=== PATIENT | female | born 1975 | race Caucasian/White ===

== ENCOUNTER 2016-11-25 08:24 | Emergency (ER) | payer OTHER ==
[2016-11-25] MEDS ORDERED: KETOROLAC 30 MG/ML 1 ML VIAL IVP STA (08:33)
[2016-11-25] MEDS ORDERED: SODIUM CHLORIDE 0.9% 1,000 ML IV STA (08:33)
[2016-11-25] MEDS ORDERED: ONDANSETRON 4 MG/2 ML VIAL IVP STA (08:33)
[2016-11-25 08:39] VITALS: RESP 18
[2016-11-25 09:00] LABS: Appearance,Urine Clear (Clear); Bilirubin,Urine Negative (Negative); Glucose,Urine (UA) Negative (Negative); Ketones,Urine Negative (Negative); Leukocyte Esterase,Urine Negative (Negative); Nitrite,Urine Negative (Negative); Protein,Urine Negative (Negative); Specific Gravity,Urine 1.006 (1.001-1.035); UA Billing (MACRO vs. MICRO) CHEM; Urobilinogen,Urine <2.0 mg/dL (<2.0)
[2016-11-25] MEDS ORDERED: HYDROmorphone 1 MG/ML 1 ML SYRINGE IVP STA (09:02)
--- NOTE | 2016-11-25 09:02 | ED ---
General Adult HPI - General Chief complaint: Back Pain/Injury Stated complaint: poss kidney stone Time Seen by Provider: 11/25/16 08:32 Source: patient, RN notes reviewed Mode of arrival: ambulatory Limitations: no limitations - History of Present Illness Initial comments: 41-year-old female presents emergency Department chief complaint of right flank pain. Patient has a history kidney stones in recurrent issues. Patient tablets The past. Patient Denies Any Vomiting States She's Been Nauseated. Patient States That She Had Pain Started Approximately One Month Ago but Has Worsened over the Last Few Days. Patient States Her Urologist Is Dr. Bingham. Patient denies any chest pain or shortness of breath. Patient denies any dysuria hematuria. Patient has no vaginal bleeding or vaginal discharge. Patient states the pain is very consistent for her kidney stones. - Related Data Home Medications Medication Instructions Recorded Confirmed Lisinopril [Zestril] 10 mg PO HS 11/25/16 11/25/16 Sertraline HCl [Zoloft] 100 mg PO HS 11/25/16 11/25/16 Previous Rx's Medication Instructions Recorded Hydrocodone/Acetaminophen [[place] 1 tab PO Q6HR PRN #20 tab 11/25/16 5-325] Ondansetron Odt [Zofran Odt] 4 mg PO Q8HR PRN #10 tab 11/25/16 Allergies Allergy/AdvReac Type Severity Reaction Status Date / Time No Known Allergies Allergy Verified 11/25/16 08:40 Review of Systems ROS Statement: Those systems with pertinent positive or pertinent negative responses have been documented in the HPI. ROS Other: All systems not noted in ROS Statement are negative. Past Medical History Past Medical History: Hypertension Additional Past Medical History / Comment(s): kidney stones History of Any Multi-Drug Resistant Organisms: None Reported Past Surgical History: Section, Cholecystectomy Additional Past Surgical History / Comment(s): laser removal of kidney stones Past Psychological History: No Psychological Hx Reported Smoking Status: Former smoker Past Alcohol Use History: Occasional Past Drug Use History: None Reported General Exam General appearance: alert, in no apparent distress Neck exam: Present: normal inspection. Absent: tenderness, meningismus, lymphadenopathy Respiratory exam: Present: normal lung sounds bilaterally. Absent: respiratory distress, wheezes, rales, rhonchi, stridor Cardiovascular Exam: Present: regular rate, normal rhythm, normal heart sounds. Absent: systolic murmur, diastolic murmur, rubs, gallop, clicks GI/Abdominal exam: Present: soft, tenderness (Mild tenderness to the right flank region), normal bowel sounds. Absent: distended, guarding, rebound, rigid Back exam: Present: full ROM, CVA tenderness (R). Absent: CVA tenderness (L) Neurological exam: Present: alert Skin exam: Present: warm, dry, intact, normal color. Absent: rash Course Vital Signs 11/25/16 08:31 Temperature 98.5 F Pulse Rate 90 Respiratory 18 Rate Blood Pressure 135/74 O2 Sat by Pulse 97 Oximetry Medical Decision Making - Medical Decision Making 41-year-old female presented for right flank pain. Patient has no kidney stones. Patient will follow-up with her urologist. Patient be given additional pain medicine go home with return parameters were discussed. - Lab Data Result diagrams: 11/25/16 08:49 11/25/16 08:49 Lab Results 11/25/16 11/25/16 11/25/16 Range/Units 08:49 08:49 08:49 WBC 7.3 (3.8-10.6) k/uL RBC 4.93 (3.80-5.40) m/uL Hgb 13.9 (11.4-16.0) gm/dL Hct 42.5 (34.0-46.0) % MCV 86.2 (80.0-100.0) fL MCH 28.3 (25.0-35.0) pg MCHC 32.8 (31.0-37.0) g/dL RDW 13.3 (11.5-15.5) % Plt Count 333 (150-450) k/uL Neutrophils % 68 % Lymphocytes % 24 % Monocytes % 4 % Eosinophils % 2 % Basophils % 1 % Neutrophils # 5.0 (1.3-7.7) k/uL Lymphocytes # 1.8 (1.0-4.8) k/uL Monocytes # 0.3 (0-1.0) k/uL Eosinophils # 0.1 (0-0.7) k/uL Basophils # 0.1 (0-0.2) k/uL Sodium 142 (137-145) mmol/L Potassium 4.0 (3.5-5.1) mmol/L Chloride 107 (98-107) mmol/L Carbon Dioxide 25 (22-30) mmol/L Anion Gap 10 mmol/L BUN 14 (7-17) mg/dL Creatinine 0.76 (0.52-1.04) mg/dL Est GFR (MDRD) Af Amer >60 (>60 ml/min/1.73 sqM) Est GFR (MDRD) Non-Af >60 (>60 ml/min/1.73 sqM) Glucose 97 (74-99) mg/dL Calcium 9.3 (8.4-10.2) mg/dL Total Bilirubin 0.6 (0.2-1.3) mg/dL AST 18 (14-36) U/L ALT 26 (9-52) U/L Alkaline Phosphatase 78 (38-126) U/L Total Protein 7.7 (6.3-8.2) g/dL Albumin 4.3 (3.5-5.0) g/dL Amylase 74 (30-110) U/L Lipase 131 (23-300) U/L Urine Color Light Yellow Urine Appearance Clear (Clear) Urine pH 6.0 (5.0-8.0) Ur Specific [place] 1.006 (1.001-1.035) Urine Protein Negative (Negative) Urine Glucose (UA) Negative (Negative) Urine Ketones Negative (Negative) Urine Blood Negative (Negative) Urine Nitrite Negative (Negative) Urine Bilirubin Negative (Negative) Urine Urobilinogen <2.0 (<2.0) mg/dL Ur Leukocyte Esterase Negative (Negative) Urine HCG, Qual (Not Detectd) 11/25/16 Range/Units 08:49 WBC (3.8-10.6) k/uL RBC (3.80-5.40) m/uL Hgb (11.4-16.0) gm/dL Hct (34.0-46.0) % MCV (80.0-100.0) fL MCH (25.0-35.0) pg MCHC (31.0-37.0) g/dL RDW (11.5-15.5) % Plt Count (150-450) k/uL Neutrophils % % Lymphocytes % % Monocytes % % Eosinophils % % Basophils % % Neutrophils # (1.3-7.7) k/uL Lymphocytes # (1.0-4.8) k/uL Monocytes # (0-1.0) k/uL Eosinophils # (0-0.7) k/uL Basophils # (0-0.2) k/uL Sodium (137-145) mmol/L Potassium (3.5-5.1) mmol/L Chloride (98-107) mmol/L Carbon Dioxide (22-30) mmol/L Anion Gap mmol/L BUN (7-17) mg/dL Creatinine (0.52-1.04) mg/dL Est GFR (MDRD) Af Amer (>60 ml/min/1.73 sqM) Est GFR (MDRD) Non-Af (>60 ml/min/1.73 sqM) Glucose (74-99) mg/dL Calcium (8.4-10.2) mg/dL Total Bilirubin (0.2-1.3) mg/dL AST (14-36) U/L ALT (9-52) U/L Alkaline Phosphatase (38-126) U/L Total Protein (6.3-8.2) g/dL Albumin (3.5-5.0) g/dL Amylase (30-110) U/L Lipase (23-300) U/L Urine Color Urine Appearance (Clear) Urine pH (5.0-8.0) Ur Specific [place] (1.001-1.035) Urine Protein (Negative) Urine Glucose (UA) (Negative) Urine Ketones (Negative) Urine Blood (Negative) Urine Nitrite (Negative) Urine Bilirubin (Negative) Urine Urobilinogen (<2.0) mg/dL Ur Leukocyte Esterase (Negative) Urine HCG, Qual Not Detected (Not Detectd) Disposition Clinical Impression: Nephrolithiasis, Right flank pain Disposition: HOME SELF-CARE Condition: Stable Instructions: Kidney Stones (ED) Additional Instructions: Please return to the Emergency Department if symptoms worsen or any other concerns. Prescriptions: Hydrocodone/Acetaminophen [[place] 5-325] 1 tab PO Q6HR PRN #20 tab PRN Reason: Pain Ondansetron Odt [Zofran Odt] 4 mg PO Q8HR PRN #10 tab PRN Reason: Nausea Referrals: Telma Aparicio DO [Primary Care Provider] - 1-2 days Grupo Bingham MD [STAFF PHYSICIAN] - 1-2 days Time of Disposition: 09:48
[2016-11-25 09:05] LABS: Basophils # (A) 0.1 k/uL (0-0.2); Basophils % (A) 1 %; CH 27.7; CHCM 32.3; Eosinophils # (A) 0.1 k/uL (0-0.7); Eosinophils % (A) 2 %; HCT 42.5 % (34.0-46.0); HDW 2.43; HGB 13.9 gm/dL (11.4-16.0); Luc # (Auto) 0.14; Luc % (Auto) 2; Lymphocytes # (A) 1.8 k/uL (1.0-4.8); Lymphocytes % (A) 24 %; MCH 28.3 pg (25.0-35.0); MCHC 32.8 g/dL (31.0-37.0); MCV 86.2 fL (80.0-100.0); Mean Platelet Volume 6.3; Monocytes # (A) 0.3 k/uL (0-1.0); Monocytes % (A) 4 %; Neutrophils % (A) 68 %; RBC 4.93 m/uL (3.80-5.40); RDW 13.3 % (11.5-15.5); WBC 7.3 k/uL (3.8-10.6); WBC (Perox) 7.11
--- NOTE | 2016-11-25 09:07 | XR ---
EXAMINATION TYPE: XR KUB DATE OF EXAM: 11/25/2016 8:57 AM CLINICAL HISTORY: History of kidney stones with right-sided abdominal pain. TECHNIQUE: 2 upright KUB images of the abdomen are obtained. COMPARISON: CT abdomen and pelvis from 6 days ago. Abdominal x-ray from 4 days ago FINDINGS: Multiple small bilateral renal calculi are redemonstrated seen better on recent CT versus x -ray. There is overall nonobstructive bowel gas pattern. Cholecystectomy clips are redemonstrated. Le ft-sided pelvic phleboliths are again seen. Visualized lung bases are clear. No pneumoperitoneum is p resent. IMPRESSION: Known multiple small bilateral renal calculi seen better on CT versus x-ray.
[2016-11-25 09:15] LABS: ALT 26 U/L (9-52); AST 18 U/L (14-36); Alkaline Phosphatase 78 U/L (38-126); Amylase 74 U/L (30-110); Anion Gap 10 mmol/L; Blood Urea Nitrogen 14 mg/dL (7-17); Calcium 9.3 mg/dL (8.4-10.2); Carbon Dioxide 25 mmol/L (22-30); Chloride 107 mmol/L (98-107); Glucose 97 mg/dL (74-99); Non-African American GFR(MDRD) >60 (>60 ml/min/1.73 sqM); Sodium 142 mmol/L (137-145); Total Bilirubin 0.6 mg/dL (0.2-1.3); Total Protein 7.7 g/dL (6.3-8.2)
[2016-11-25 10:01] VITALS: BP 128/78; PULSE 89; TEMP 98.6
== END 2016-11-25 09:58 | disposition home or self-care (01) ==
LOC: EC 08:24
DX: N20.0 Calculus of kidney (principal); R11.0 Nausea; I10 Essential (primary) hypertension; Z87.891 Personal history of nicotine dependence; Z79.899 Other long term (current) drug therapy; Z90.49 Acquired absence of other specified parts of digestive tract; Z98.890 Other specified postprocedural states
CPT/HCPCS: 36415; 80053; 82150; 83690; 85025; 81003; 81025; 74000; 99284; 96374; 96375 ×2; J2405; J1885; J1170

== ENCOUNTER 2017-09-26 12:06 | Emergency (ER) | payer OTHER ==
[2017-09-26 12:15] VITALS: RESP 18
[2017-09-26] MEDS ORDERED: KETOROLAC 30 MG/ML 1 ML VIAL IVP STA (12:20)
[2017-09-26] MEDS ORDERED: SODIUM CHLORIDE 0.9% 1,000 ML IV STA (12:20)
[2017-09-26] MEDS ORDERED: MORPHINE SULFATE 4 MG/ML SYRINGE IV STA (12:20)
[2017-09-26] MEDS ORDERED: ONDANSETRON 4 MG/2 ML VIAL IVP STA (12:20)
[2017-09-26 12:46] LABS: Basophils # (A) 0.1 k/uL (0-0.2); Basophils % (A) 1 %; Eosinophils # (A) 0.2 k/uL (0-0.7); Eosinophils % (A) 2 %; HCT 43.7 % (34.0-46.0); HGB 13.5 gm/dL (11.4-16.0); Lymphocytes # (A) 2.7 k/uL (1.0-4.8); Lymphocytes % (A) 33 %; MCH 26.7 pg (25.0-35.0); MCV 86.1 fL (80.0-100.0); Mean Platelet Volume 6.5; Monocytes # (A) 0.5 k/uL (0-1.0); Monocytes % (A) 7 %; Neutrophils # (A) 4.5 k/uL (1.3-7.7); Neutrophils % (A) 56 %; Platelet Count 380 k/uL (150-450); RBC 5.08 m/uL (3.80-5.40); RDW 13.6 % (11.5-15.5); WBC 8.2 k/uL (3.8-10.6)
[2017-09-26 12:50] LABS: Appearance,Urine Cloudy (Clear); Bacteria,Urine Rare /hpf; Bilirubin,Urine Negative (Negative); Blood,Urine Large (Negative); Color,Urine Yellow; Glucose,Urine (UA) Negative (Negative); Ketones,Urine Negative (Negative); Leukocyte Esterase,Urine Negative (Negative); Mucus,Urine Moderate /hpf; Nitrite,Urine Negative (Negative); PH, Urine 5.5 (5.0-8.0); Protein,Urine 1+ (Negative); RBC,Urine >182 /hpf (0-5); Specific Gravity,Urine 1.023 (1.001-1.035); Squamous Epithelial Cell,Urine 4 /hpf (0-4); Urobilinogen,Urine <2.0 mg/dL (<2.0); WBC,Urine 6 /hpf (0-5)
--- NOTE | 2017-09-26 12:53 | ED ---
General Adult HPI - General Chief complaint: Abdominal Pain Stated complaint: KIDNEY STONE Time Seen by Provider: 09/26/17 12:16 Source: patient, RN notes reviewed Mode of arrival: ambulatory Limitations: no limitations - History of Present Illness Initial comments: Patient 42-year-old female significant past medical history for kidney stones, presents emergency room today with chief complaint of right-sided flank pain that began last night. States had increased pain proximal one hour ago. Does not that she seen some blood in the urine. He doesn't feeling nauseated. States his symptoms are consistent with kidney stones that she's had in the past. She denies any other complaints or symptoms at this time. States she has not taken anything for the symptoms at home. Patient denies any recent fever , chills, shortness of breath, chest pain, numbness or tingling, dysuria, constipation or diarrhea, headaches or visual changes, or any other complaints. - Related Data Home Medications Medication Instructions Recorded Confirmed Lisinopril [Zestril] 10 mg PO HS 11/25/16 09/26/17 Sertraline HCl [Zoloft] 100 mg PO HS 11/25/16 09/26/17 Naproxen Sodium [Aleve] 220 mg PO DAILY PRN 09/26/17 09/26/17 Previous Rx's Medication Instructions Recorded Hydrocodone/Acetaminophen [[place] 1 each PO Q6HR PRN #12 tab 09/26/17 5-325] Ondansetron Odt [Zofran ODT] 4 mg PO Q8HR PRN #20 tab 09/26/17 Tamsulosin [Flomax] 0.4 mg PO DAILY #10 cap 09/26/17 Allergies Allergy/AdvReac Type Severity Reaction Status Date / Time No Known Allergies Allergy Verified 09/26/17 12:38 Review of Systems ROS Statement: Those systems with pertinent positive or pertinent negative responses have been documented in the HPI. ROS Other: All systems not noted in ROS Statement are negative. Past Medical History Past Medical History: Hypertension Additional Past Medical History / Comment(s): kidney stones History of Any Multi-Drug Resistant Organisms: None Reported Past Surgical History: Section, Cholecystectomy Additional Past Surgical History / Comment(s): laser removal of kidney stones Past Psychological History: No Psychological Hx Reported Smoking Status: Former smoker Past Alcohol Use History: Occasional Past Drug Use History: None Reported General Exam - General Exam Comments Initial Comments: General: The patient is awake and alert, in no distress, and does not appear acutely ill. Eye: Pupils are equal, round and reactive to light, extra-ocular movements are intact. No nystagmus. There is normal conjunctiva bilaterally. No signs of icterus. Ears, nose, mouth and throat: There are moist mucous membranes and no oral lesions. Neck: The neck is supple, there is no tenderness or JVD. Cardiovascular: There is a regular rate and rhythm. No murmur, rub or gallop is appreciated. Respiratory: Lungs are clear to auscultation, respirations are non-labored, breath sounds are equal. No wheezes, stridor, rales, or rhonchi. Gastrointestinal: Mild tenderness to the right CVA. No rebound tenderness. No guarding. Musculoskeletal: Normal ROM, no tenderness. Strength 5/5. Sensation intact. Pulses equal bilaterally 2+. Neurological: A&O x 3. CN II-XII intact, There are no obvious motor or sensory deficits. Coordination appears grossly intact. Speech is normal. Skin: Skin is warm and dry and no rashes or lesions are noted. Psychiatric: Cooperative, appropriate mood & affect, normal judgment. Limitations: no limitations Course Vital Signs 09/26/17 09/26/17 12:13 13:13 Temperature 98.1 F 97.8 F Pulse Rate 83 81 Respiratory 18 18 Rate Blood Pressure 131/89 130/71 O2 Sat by Pulse 94 L 99 Oximetry Medical Decision Making - Medical Decision Making Patient reexamined at this time shows no signs of distress. She does not that the symptoms are consistent with kidney stones that she's had in the past. Her x-rays been reviewed unremarkable. Her labs been reviewed. Patient does have large amount of blood. No sign of infection. Patient does state this feels consistent with kidney stones. Options of a CT were discussed. At this time shows couple been discharged home. Will be given Flomax, pain medication and nausea medication go home with. She is advised follow-up urologist later in the week if symptoms continue. Advised return if any symptoms increase or worsen. She states understanding and is in agreement. - Lab Data Result diagrams: 09/26/17 12:37 09/26/17 12:37 Lab Results 02/24/18 02/24/18 02/24/18 Range/Units 12:37 12:37 12:37 WBC 8.2 (3.8-10.6) k/uL RBC 5.08 (3.80-5.40) m/uL Hgb 13.5 (11.4-16.0) gm/dL Hct 43.7 (34.0-46.0) % MCV 86.1 (80.0-100.0) fL MCH 26.7 (25.0-35.0) pg MCHC 31.0 (31.0-37.0) g/dL RDW 13.6 (11.5-15.5) % Plt Count 380 (150-450) k/uL Neutrophils % 56 % Lymphocytes % 33 % Monocytes % 7 % Eosinophils % 2 % Basophils % 1 % Neutrophils # 4.5 (1.3-7.7) k/uL Lymphocytes # 2.7 (1.0-4.8) k/uL Monocytes # 0.5 (0-1.0) k/uL Eosinophils # 0.2 (0-0.7) k/uL Basophils # 0.1 (0-0.2) k/uL Sodium 144 (137-145) mmol/L Potassium 4.2 (3.5-5.1) mmol/L Chloride 106 (98-107) mmol/L Carbon Dioxide 26 (22-30) mmol/L Anion Gap 12 mmol/L BUN 15 (7-17) mg/dL Creatinine 0.80 (0.52-1.04) mg/dL Est GFR (MDRD) Af Amer >60 (>60 ml/min/1.73 sqM) Est GFR (MDRD) Non-Af >60 (>60 ml/min/1.73 sqM) Glucose 96 (74-99) mg/dL Calcium 9.6 (8.4-10.2) mg/dL Total Bilirubin 0.4 (0.2-1.3) mg/dL AST 18 (14-36) U/L ALT 27 (9-52) U/L Alkaline Phosphatase 84 (38-126) U/L Total Protein 7.4 (6.3-8.2) g/dL Albumin 4.2 (3.5-5.0) g/dL Urine Color Urine Appearance (Clear) Urine pH (5.0-8.0) Ur Specific [place] (1.001-1.035) Urine Protein (Negative) Urine Glucose (UA) (Negative) Urine Ketones (Negative) Urine Blood (Negative) Urine Nitrite (Negative) Urine Bilirubin (Negative) Urine Urobilinogen (<2.0) mg/dL Ur Leukocyte Esterase (Negative) Urine RBC (0-5) /hpf Urine WBC (0-5) /hpf Ur Squamous Epith Cells (0-4) /hpf Urine Bacteria (None) /hpf Urine Mucus (None) /hpf Urine HCG, Qual Not Detected (Not Detectd) 09/26/17 Range/Units 12:37 WBC (3.8-10.6) k/uL RBC (3.80-5.40) m/uL Hgb (11.4-16.0) gm/dL Hct (34.0-46.0) % MCV (80.0-100.0) fL MCH (25.0-35.0) pg MCHC (31.0-37.0) g/dL RDW (11.5-15.5) % Plt Count (150-450) k/uL Neutrophils % % Lymphocytes % % Monocytes % % Eosinophils % % Basophils % % Neutrophils # (1.3-7.7) k/uL Lymphocytes # (1.0-4.8) k/uL Monocytes # (0-1.0) k/uL Eosinophils # (0-0.7) k/uL Basophils # (0-0.2) k/uL Sodium (137-145) mmol/L Potassium (3.5-5.1) mmol/L Chloride (98-107) mmol/L Carbon Dioxide (22-30) mmol/L Anion Gap mmol/L BUN (7-17) mg/dL Creatinine (0.52-1.04) mg/dL Est GFR (MDRD) Af Amer (>60 ml/min/1.73 sqM) Est GFR (MDRD) Non-Af (>60 ml/min/1.73 sqM) Glucose (74-99) mg/dL Calcium (8.4-10.2) mg/dL Total Bilirubin (0.2-1.3) mg/dL AST (14-36) U/L ALT (9-52) U/L Alkaline Phosphatase (38-126) U/L Total Protein (6.3-8.2) g/dL Albumin (3.5-5.0) g/dL Urine Color Yellow Urine Appearance Cloudy H (Clear) Urine pH 5.5 (5.0-8.0) Ur Specific [place] 1.023 (1.001-1.035) Urine Protein 1+ H (Negative) Urine Glucose (UA) Negative (Negative) Urine Ketones Negative (Negative) Urine Blood Large H (Negative) Urine Nitrite Negative (Negative) Urine Bilirubin Negative (Negative) Urine Urobilinogen <2.0 (<2.0) mg/dL Ur Leukocyte Esterase Negative (Negative) Urine RBC >182 H (0-5) /hpf Urine WBC 6 H (0-5) /hpf Ur Squamous Epith Cells 4 (0-4) /hpf Urine Bacteria Rare H (None) /hpf Urine Mucus Moderate H (None) /hpf Urine HCG, Qual (Not Detectd) Disposition Clinical Impression: Kidney stone Disposition: HOME SELF-CARE Condition: Stable Instructions: Kidney Stones (ED) Additional Instructions: Please use medication as discussed. Please follow-up with urologist/family doctor in the next 2 days of symptoms have not improved. Please return to emergency room if the symptoms increase or worsen or for any other concerns. Prescriptions: Hydrocodone/Acetaminophen [[place] 5-325] 1 each PO Q6HR PRN #12 tab PRN Reason: Pain Ondansetron Odt [Zofran ODT] 4 mg PO Q8HR PRN #20 tab PRN Reason: Nausea Tamsulosin [Flomax] 0.4 mg PO DAILY #10 cap Referrals: Telma Aparicio DO [Primary Care Provider] - 1-2 days Time of Disposition: 13:33
[2017-09-26 12:57] LABS: ALT 27 U/L (9-52); AST 18 U/L (14-36); Albumin 4.2 g/dL (3.5-5.0); Alkaline Phosphatase 84 U/L (38-126); Anion Gap 12 mmol/L; Blood Urea Nitrogen 15 mg/dL (7-17); Calcium 9.6 mg/dL (8.4-10.2); Carbon Dioxide 26 mmol/L (22-30); Chloride 106 mmol/L (98-107); Glucose 96 mg/dL (74-99); Potassium 4.2 mmol/L (3.5-5.1); Sodium 144 mmol/L (137-145); Total Bilirubin 0.4 mg/dL (0.2-1.3); Total Protein 7.4 g/dL (6.3-8.2)
[2017-09-26] MEDS ORDERED: HYDROmorphone 0.5 MG/0.5 ML SYRINGE IVP STA (13:20)
--- NOTE | 2017-09-26 13:22 | XR ---
EXAMINATION TYPE: XR KUB , 2 VIEWS DATE OF EXAM ORDERED: 09/26/2017 HISTORY: pain. COMPARISON: Previous study dated 11/25/2016. FINDINGS: The lung bases are clear. There is been a previous cholecystectomy. The abdominal gas pattern is normal. There is no evidence of obstruction or free air. There is a 1.2 cm calculus overlying the region of the left renal pelvis. No other definite abnormal calcifications are seen. IMPRESSION: LEFT-SIDED NEPHROLITHIASIS.
[2017-09-26 14:01] VITALS: BP 142/73; PULSE 83; TEMP 97.5
== END 2017-09-26 14:01 | disposition home or self-care (01) ==
LOC: EC 12:06
DX: N20.0 Calculus of kidney (principal); I10 Essential (primary) hypertension; Z90.49 Acquired absence of other specified parts of digestive tract; Z87.891 Personal history of nicotine dependence; Z79.899 Other long term (current) drug therapy
CPT/HCPCS: 36415; 80053; 85025; 81001; 81025; 87086; 74018; 99284; 96374; 96375 ×3; 96361; J2270; J2405; J1885; J1170

== ENCOUNTER 2017-12-24 14:53 | Emergency (ER) | payer BC, OTHER ==
[2017-12-24 15:01] VITALS: RESP 18
[2017-12-24] MEDS ORDERED: KETOROLAC 30 MG/ML 1 ML VIAL IVP STA (15:02)
[2017-12-24] MEDS ORDERED: SODIUM CHLORIDE 0.9% 1,000 ML IV STA (15:02)
[2017-12-24] MEDS ORDERED: ONDANSETRON 4 MG/2 ML VIAL IVP STA (15:02)
--- NOTE | 2017-12-24 15:30 | ED ---
Abdominal Pain HPI - General Chief Complaint: Abdominal Pain Stated Complaint: Kidney stone Time Seen by Provider: 12/24/17 15:02 Source: patient, RN notes reviewed Mode of arrival: ambulatory Limitations: no limitations - History of Present Illness Initial Comments: 42-year-old female presents emergency Department chief complaint of right flank pain. She has a history of kidney stones. She states pain started hour to ago she states it feels exactly like her prior kidney stones. She missed some nausea no vomiting no diarrhea no constipation. states that the pain wraps around from her right flank to right lower abdomen. Patient denies any fever, chills no dysuria no noted hematuria. - Related Data Home Medications Medication Instructions Recorded Confirmed Sertraline HCl [Zoloft] 100 mg PO DAILY 11/25/16 12/24/17 Lisinopril [Zestril] 5 mg PO DAILY 12/24/17 12/24/17 Previous Rx's Medication Instructions Recorded Hydrocodone/Acetaminophen [[place] 1 tab PO Q6HR PRN #12 tab 12/24/17 5-325] Ibuprofen [Motrin] 600 mg PO Q8HR PRN #30 tab 12/24/17 Ondansetron Odt [Zofran Odt] 4 mg PO Q8HR PRN #10 tab 12/24/17 Tamsulosin [Flomax] 0.4 mg PO DAILY #7 cap 12/24/17 Allergies Allergy/AdvReac Type Severity Reaction Status Date / Time No Known Allergies Allergy Verified 12/24/17 15:08 Review of Systems ROS Statement: Those systems with pertinent positive or pertinent negative responses have been documented in the HPI. ROS Other: All systems not noted in ROS Statement are negative. Past Medical History Past Medical History: Hypertension Additional Past Medical History / Comment(s): kidney stones History of Any Multi-Drug Resistant Organisms: None Reported Past Surgical History: Section, Cholecystectomy Additional Past Surgical History / Comment(s): laser removal of kidney stones Past Psychological History: No Psychological Hx Reported Smoking Status: Former smoker Past Alcohol Use History: Occasional Past Drug Use History: None Reported General Exam Limitations: no limitations General appearance: alert, in no apparent distress Head exam: Present: atraumatic, normocephalic, normal inspection Respiratory exam: Present: normal lung sounds bilaterally. Absent: respiratory distress, wheezes, rales, rhonchi, stridor Cardiovascular Exam: Present: regular rate, normal rhythm, normal heart sounds. Absent: systolic murmur, diastolic murmur, rubs, gallop, clicks GI/Abdominal exam: Present: soft, tenderness (Tenderness to the right flank), normal bowel sounds. Absent: distended, guarding, rebound, rigid Back exam: Present: full ROM. Absent: tenderness, CVA tenderness (R), CVA tenderness (L) Neurological exam: Present: alert, oriented X3, CN II-XII intact Skin exam: Present: warm, dry, intact, normal color. Absent: rash Course Vital Signs 12/24/17 15:00 Temperature 98.9 F Pulse Rate 96 Respiratory 18 Rate Blood Pressure 179/86 O2 Sat by Pulse 98 Oximetry - Reevaluation(s) Reevaluation #1: 12/24/17 16:46 Patient was updated on results and reexamined. Patient states she feels much improved after IV medications. Medical Decision Making - Medical Decision Making 42-year-old female to emergency dept for right flank pain. She has a history kidney stones and symptoms are consistent with kidney stone. She does have notable hematuria and otherwise normal lab work. Patient we discharged with pain medication, antiemetics. Return parameters were discussed. - Lab Data Result diagrams: 12/24/17 16:10 12/24/17 16:10 Lab Results 12/24/17 12/24/17 12/24/17 Range/Units 16:10 16:10 16:10 WBC 9.2 (3.8-10.6) k/uL RBC 5.00 (3.80-5.40) m/uL Hgb 13.4 (11.4-16.0) gm/dL Hct 41.0 (34.0-46.0) % MCV 82.0 (80.0-100.0) fL MCH 26.8 (25.0-35.0) pg MCHC 32.6 (31.0-37.0) g/dL RDW 13.5 (11.5-15.5) % Plt Count 373 (150-450) k/uL Neutrophils % 64 % Lymphocytes % 24 % Monocytes % 7 % Eosinophils % 2 % Basophils % 1 % Neutrophils # 6.0 (1.3-7.7) k/uL Lymphocytes # 2.2 (1.0-4.8) k/uL Monocytes # 0.7 (0-1.0) k/uL Eosinophils # 0.2 (0-0.7) k/uL Basophils # 0.1 (0-0.2) k/uL Sodium 145 (137-145) mmol/L Potassium 3.8 (3.5-5.1) mmol/L Chloride 105 (98-107) mmol/L Carbon Dioxide 25 (22-30) mmol/L Anion Gap 15 mmol/L BUN 14 (7-17) mg/dL Creatinine 0.70 (0.52-1.04) mg/dL Est GFR (CKD-EPI)AfAm >90 (>60 ml/min/1.73 sqM) Est GFR (CKD-EPI)NonAf >90 (>60 ml/min/1.73 sqM) Glucose 120 H (74-99) mg/dL Calcium 9.5 (8.4-10.2) mg/dL Total Bilirubin 0.2 (0.2-1.3) mg/dL AST 18 (14-36) U/L ALT 29 (9-52) U/L Alkaline Phosphatase 86 (38-126) U/L Total Protein 7.0 (6.3-8.2) g/dL Albumin 4.1 (3.5-5.0) g/dL Amylase 67 (30-110) U/L Lipase 215 (23-300) U/L Urine Color Yellow Urine Appearance Clear (Clear) Urine pH 6.0 (5.0-8.0) Ur Specific [place] 1.019 (1.001-1.035) Urine Protein Negative (Negative) Urine Glucose (UA) Negative (Negative) Urine Ketones Negative (Negative) Urine Blood Trace H (Negative) Urine Nitrite Negative (Negative) Urine Bilirubin Negative (Negative) Urine Urobilinogen <2.0 (<2.0) mg/dL Ur Leukocyte Esterase Negative (Negative) Urine RBC 9 H (0-5) /hpf Urine WBC 3 (0-5) /hpf Ur Squamous Epith Cells 2 (0-4) /hpf Urine Bacteria Rare H (None) /hpf Urine Mucus Rare H (None) /hpf Disposition Clinical Impression: Nephrolithiasis, Right flank pain Disposition: HOME SELF-CARE Condition: Stable Instructions: Kidney Stones (ED) Additional Instructions: Please return to the Emergency Department if symptoms worsen or any other concerns. Prescriptions: Hydrocodone/Acetaminophen [[place] 5-325] 1 tab PO Q6HR PRN #12 tab PRN Reason: Pain Ibuprofen [Motrin] 600 mg PO Q8HR PRN #30 tab PRN Reason: Pain Ondansetron Odt [Zofran Odt] 4 mg PO Q8HR PRN #10 tab PRN Reason: Nausea Tamsulosin [Flomax] 0.4 mg PO DAILY #7 cap Is patient prescribed a controlled substance at d/c from ED?: Yes When asked, does pt state using other controlled substances?: No If prescribed controlled substance>3 days was MAPS reviewed?: Prescribed <3 Days If opioid is for acute pain is fill amount 7 days or less?: Yes Referrals: Telma Aparicio DO [Primary Care Provider] - 1-2 days Time of Disposition: 16:48
[2017-12-24] MEDS: MORPHINE SULFATE 4 MG/ML SYRINGE IV STA ×2 (16:18→16:59)
[2017-12-24 16:26] LABS: Appearance,Urine Clear (Clear); Bacteria,Urine Rare /hpf; Basophils # (A) 0.1 k/uL (0-0.2); Basophils % (A) 1 %; Bilirubin,Urine Negative (Negative); Blood,Urine Trace (Negative); Color,Urine Yellow; Eosinophils # (A) 0.2 k/uL (0-0.7); Eosinophils % (A) 2 %; Glucose,Urine (UA) Negative (Negative); HGB 13.4 gm/dL (11.4-16.0); Ketones,Urine Negative (Negative); Leukocyte Esterase,Urine Negative (Negative); Lymphocytes # (A) 2.2 k/uL (1.0-4.8); Lymphocytes % (A) 24 %; MCH 26.8 pg (25.0-35.0); MCHC 32.6 g/dL (31.0-37.0); Mean Platelet Volume 6.7; Monocytes # (A) 0.7 k/uL (0-1.0); Monocytes % (A) 7 %; Mucus,Urine Rare /hpf; Neutrophils % (A) 64 %; Nitrite,Urine Negative (Negative); Platelet Count 373 k/uL (150-450); Protein,Urine Negative (Negative); RBC,Urine 9 /hpf (0-5); RDW 13.5 % (11.5-15.5); Specific Gravity,Urine 1.019 (1.001-1.035); Squamous Epithelial Cell,Urine 2 /hpf (0-4); Urobilinogen,Urine <2.0 mg/dL (<2.0); WBC 9.2 k/uL (3.8-10.6); WBC,Urine 3 /hpf (0-5)
[2017-12-24 16:36] LABS: ALT 29 U/L (9-52); AST 18 U/L (14-36); Albumin 4.1 g/dL (3.5-5.0); Alkaline Phosphatase 86 U/L (38-126); Amylase 67 U/L (30-110); Anion Gap 15 mmol/L; Blood Urea Nitrogen 14 mg/dL (7-17); Calcium 9.5 mg/dL (8.4-10.2); Carbon Dioxide 25 mmol/L (22-30); Chloride 105 mmol/L (98-107); Glucose 120 mg/dL (74-99); Lipase 215 U/L (23-300); Potassium 3.8 mmol/L (3.5-5.1); Sodium 145 mmol/L (137-145); Total Bilirubin 0.2 mg/dL (0.2-1.3)
--- NOTE | 2017-12-24 16:46 | XR ---
EXAMINATION TYPE: XR KUB DATE OF EXAM: 12/24/2017 COMPARISON: 09/26/2017 HISTORY: Right flank pain TECHNIQUE: 2 views FINDINGS: Bowel gas pattern is normal. There is no sign of intestinal obstruction or pneumoperitoneum . Fecal pattern is normal. There are clips from cholecystectomy. There is a 1 cm calcification over t he left kidney. There is a 5 mm calcification over the pelvis on the right side that could be a dista l right ureteral stone. This is a change compared to old exam. There are small calcifications over th e right kidney. IMPRESSION: Possible distal right ureteral calculus.
[2017-12-24 17:04] VITALS: BP 157/70; PULSE 87; TEMP 97.4
== END 2017-12-24 17:04 | disposition home or self-care (01) ==
LOC: EC 14:53
DX: N20.0 Calculus of kidney (principal); I10 Essential (primary) hypertension; Z87.442 Personal history of urinary calculi; Z87.891 Personal history of nicotine dependence; Z79.899 Other long term (current) drug therapy; Z90.49 Acquired absence of other specified parts of digestive tract
CPT/HCPCS: 36415; 80053; 82150; 83690; 85025; 81001; 74018; 99284; 96374; 96375 ×2; J2270; J2405; J1885

== ENCOUNTER 2018-07-16 13:44 | Emergency (ER) | payer BC ==
[2018-07-16] MEDS ORDERED: ONDANSETRON 4 MG/2 ML VIAL IVP STA (14:42)
[2018-07-16] MEDS ORDERED: SODIUM CHLORIDE 0.9% 1,000 ML IV STA (14:42)
[2018-07-16] MEDS ORDERED: MORPHINE SULFATE 4 MG/ML SYRINGE IV STA ×2 (14:42→16:20)
[2018-07-16] MEDS ORDERED: KETOROLAC 30 MG/ML 1 ML VIAL IVP STA (14:43)
--- NOTE | 2018-07-16 14:44 | ED ---
General Adult HPI - General Chief complaint: Abdominal Pain Stated complaint: Kidney stones Time Seen by Provider: 07/16/18 14:29 Source: patient, RN notes reviewed Mode of arrival: ambulatory Limitations: no limitations - History of Present Illness Initial comments: Patient 42-year-old female significant past medical history for kidney stones, presenting to the emergency room today with a chief complaint of right-sided flank pain. She states that she has had some nausea no vomiting. Does admit to pain in the right flank rate around to the front. States consistent with kidney stone that she's had in the past. States pain started last night. Denies any other complaints. Patient denies any recent fever, chills, shortness of breath, chest pain, vomiting, numbness or tingling, dysuria or hematuria, headaches or visual changes, or any other complaints. - Related Data Home Medications Medication Instructions Recorded Confirmed Sertraline HCl [Zoloft] 100 mg PO HS 11/25/16 07/16/18 Losartan Potassium 50 mg PO HS 07/16/18 07/16/18 Previous Rx's Medication Instructions Recorded Hydrocodone/Acetaminophen [[place] 1 each PO Q6HR PRN #12 tab 07/16/18 5-325] Ibuprofen [Motrin] 600 mg PO Q6HR PRN #30 day 07/16/18 Tamsulosin [Flomax] 0.4 mg PO DAILY #10 cap 07/16/18 Allergies Allergy/AdvReac Type Severity Reaction Status Date / Time No Known Allergies Allergy Verified 07/16/18 14:39 Review of Systems ROS Statement: Those systems with pertinent positive or pertinent negative responses have been documented in the HPI. ROS Other: All systems not noted in ROS Statement are negative. Past Medical History Past Medical History: Hypertension Additional Past Medical History / Comment(s): kidney stones History of Any Multi-Drug Resistant Organisms: None Reported Past Surgical History: Section, Cholecystectomy Additional Past Surgical History / Comment(s): laser removal of kidney stones Past Psychological History: No Psychological Hx Reported Smoking Status: Former smoker Past Alcohol Use History: Occasional Past Drug Use History: None Reported General Exam - General Exam Comments Initial Comments: General: The patient is awake and alert, in no distress, and does not appear acutely ill. Eye: There is normal conjunctiva bilaterally. No signs of icterus. Ears, nose, mouth and throat: There are moist mucous membranes and no oral lesions. Neck: The neck is supple, there is no tenderness or JVD. Cardiovascular: There is a regular rate and rhythm. No murmur, rub or gallop is appreciated. Respiratory: Lungs are clear to auscultation, respirations are non-labored, breath sounds are equal. No wheezes, stridor, rales, or rhonchi. Gastrointestinal: Soft, non-distended, non-tender abdomen without masses or organomegaly noted. There is no rebound or guarding present. No CVA tenderness. Bowel sounds are unremarkable. Musculoskeletal: Normal ROM, no tenderness. Strength 5/5. Sensation intact. Pulses equal bilaterally 2+. Neurological: A&O x 3. CN II-XII intact, There are no obvious motor or sensory deficits. Coordination appears grossly intact. Speech is normal. Skin: Skin is warm and dry and no rashes or lesions are noted. Psychiatric: Cooperative, appropriate mood & affect, normal judgment. Limitations: no limitations Course Vital Signs 07/16/18 13:57 Temperature 98.4 F Pulse Rate 90 Respiratory 18 Rate Blood Pressure 143/88 O2 Sat by Pulse 96 Oximetry Medical Decision Making - Medical Decision Making Patient's labs reviewed. Urinalysis reviewed. Patient resting comfortably. Does admit to improvement after pain medication. She states the symptoms are consistent with kidney stones that she's had in the past. Was discussed about a CT. She has declined. She states she notes that it's a kidney stone. Patient will be treated with pain medication. She'll be given ibuprofen along with [place]. An opiate start talking form has been filled out. Patient also be started on Flomax and she is advised follow-up with her urologist Dr. Bingham. Advised return if symptoms increase or worsen or for any other concerns. - Lab Data Result diagrams: 07/16/18 14:51 07/16/18 14:51 Lab Results 07/16/18 07/16/18 07/16/18 Range/Units 14:51 14:51 14:51 WBC 10.7 H (3.8-10.6) k/uL RBC 5.25 (3.80-5.40) m/uL Hgb 14.4 (11.4-16.0) gm/dL Hct 44.2 (34.0-46.0) % MCV 84.2 (80.0-100.0) fL MCH 27.5 (25.0-35.0) pg MCHC 32.6 (31.0-37.0) g/dL RDW 14.0 (11.5-15.5) % Plt Count 365 (150-450) k/uL Neutrophils % 63 % Lymphocytes % 25 % Monocytes % 7 % Eosinophils % 2 % Basophils % 1 % Neutrophils # 6.8 (1.3-7.7) k/uL Lymphocytes # 2.7 (1.0-4.8) k/uL Monocytes # 0.8 (0-1.0) k/uL Eosinophils # 0.2 (0-0.7) k/uL Basophils # 0.1 (0-0.2) k/uL Sodium 141 (137-145) mmol/L Potassium 3.9 (3.5-5.1) mmol/L Chloride 108 H (98-107) mmol/L Carbon Dioxide 22 (22-30) mmol/L Anion Gap 11 mmol/L BUN 16 (7-17) mg/dL Creatinine 0.86 (0.52-1.04) mg/dL Est GFR (CKD-EPI)AfAm >90 (>60 ml/min/1.73 sqM) Est GFR (CKD-EPI)NonAf 84 (>60 ml/min/1.73 sqM) Glucose 114 H (74-99) mg/dL Calcium 9.2 (8.4-10.2) mg/dL Total Bilirubin 0.4 (0.2-1.3) mg/dL AST 22 (14-36) U/L ALT 31 (9-52) U/L Alkaline Phosphatase 83 (38-126) U/L Total Protein 8.0 (6.3-8.2) g/dL Albumin 4.6 (3.5-5.0) g/dL Amylase 72 (30-110) U/L Lipase 268 (23-300) U/L Urine Color Urine Appearance (Clear) Urine pH (5.0-8.0) Ur Specific [place] (1.001-1.035) Urine Protein (Negative) Urine Glucose (UA) (Negative) Urine Ketones (Negative) Urine Blood (Negative) Urine Nitrite (Negative) Urine Bilirubin (Negative) Urine Urobilinogen (<2.0) mg/dL Ur Leukocyte Esterase (Negative) Urine RBC (0-5) /hpf Urine WBC (0-5) /hpf Ur Squamous Epith Cells (0-4) /hpf Amorphous Sediment (None) /hpf Urine Bacteria (None) /hpf Hyaline Casts (0-2) /lpf Urine Mucus (None) /hpf Urine HCG, Qual Not Detected (Not Detectd) 07/16/18 Range/Units 14:51 WBC (3.8-10.6) k/uL RBC (3.80-5.40) m/uL Hgb (11.4-16.0) gm/dL Hct (34.0-46.0) % MCV (80.0-100.0) fL MCH (25.0-35.0) pg MCHC (31.0-37.0) g/dL RDW (11.5-15.5) % Plt Count (150-450) k/uL Neutrophils % % Lymphocytes % % Monocytes % % Eosinophils % % Basophils % % Neutrophils # (1.3-7.7) k/uL Lymphocytes # (1.0-4.8) k/uL Monocytes # (0-1.0) k/uL Eosinophils # (0-0.7) k/uL Basophils # (0-0.2) k/uL Sodium (137-145) mmol/L Potassium (3.5-5.1) mmol/L Chloride (98-107) mmol/L Carbon Dioxide (22-30) mmol/L Anion Gap mmol/L BUN (7-17) mg/dL Creatinine (0.52-1.04) mg/dL Est GFR (CKD-EPI)AfAm (>60 ml/min/1.73 sqM) Est GFR (CKD-EPI)NonAf (>60 ml/min/1.73 sqM) Glucose (74-99) mg/dL Calcium (8.4-10.2) mg/dL Total Bilirubin (0.2-1.3) mg/dL AST (14-36) U/L ALT (9-52) U/L Alkaline Phosphatase (38-126) U/L Total Protein (6.3-8.2) g/dL Albumin (3.5-5.0) g/dL Amylase (30-110) U/L Lipase (23-300) U/L Urine Color Yellow Urine Appearance Cloudy H (Clear) Urine pH 5.5 (5.0-8.0) Ur Specific [place] 1.026 (1.001-1.035) Urine Protein 1+ H (Negative) Urine Glucose (UA) Negative (Negative) Urine Ketones Negative (Negative) Urine Blood Small H (Negative) Urine Nitrite Negative (Negative) Urine Bilirubin Negative (Negative) Urine Urobilinogen 2.0 (<2.0) mg/dL Ur Leukocyte Esterase Trace H (Negative) Urine RBC 7 H (0-5) /hpf Urine WBC 12 H (0-5) /hpf Ur Squamous Epith Cells 21 H (0-4) /hpf Amorphous Sediment Rare H (None) /hpf Urine Bacteria Occasional H (None) /hpf Hyaline Casts 8 H (0-2) /lpf Urine Mucus Many H (None) /hpf Urine HCG, Qual (Not Detectd) Disposition Clinical Impression: Kidney stone Disposition: HOME SELF-CARE Condition: Good Instructions: Kidney Stones (ED) Additional Instructions: Please use medication as discussed. Please follow-up with urologist/family doctor in the next 2 days of symptoms have not improved. Please return to emergency room if the symptoms increase or worsen or for any other concerns. Prescriptions: Hydrocodone/Acetaminophen [[place] 5-325] 1 each PO Q6HR PRN #12 tab PRN Reason: Pain Ibuprofen [Motrin] 600 mg PO Q6HR PRN #30 day PRN Reason: Pain Tamsulosin [Flomax] 0.4 mg PO DAILY #10 cap Is patient prescribed a controlled substance at d/c from ED?: No Referrals: Telma Aparicio DO [Primary Care Provider] - 1-2 days Grupo Bingham MD [STAFF PHYSICIAN] - 1-2 days Time of Disposition: 16:22
[2018-07-16 15:13] LABS: Basophils # (A) 0.1 k/uL (0-0.2); Basophils % (A) 1 %; Eosinophils # (A) 0.2 k/uL (0-0.7); Eosinophils % (A) 2 %; HCT 44.2 % (34.0-46.0); HGB 14.4 gm/dL (11.4-16.0); Lymphocytes # (A) 2.7 k/uL (1.0-4.8); Lymphocytes % (A) 25 %; MCH 27.5 pg (25.0-35.0); MCHC 32.6 g/dL (31.0-37.0); MCV 84.2 fL (80.0-100.0); Mean Platelet Volume 6.9; Monocytes # (A) 0.8 k/uL (0-1.0); Monocytes % (A) 7 %; Neutrophils # (A) 6.8 k/uL (1.3-7.7); Neutrophils % (A) 63 %; Platelet Count 365 k/uL (150-450); RBC 5.25 m/uL (3.80-5.40); WBC 10.7 k/uL (3.8-10.6)
[2018-07-16 15:27] LABS: Amorphous Sediment,Urine Rare /hpf; Appearance,Urine Cloudy (Clear); Bacteria,Urine Occasional /hpf; Bilirubin,Urine Negative (Negative); Blood,Urine Small (Negative); Color,Urine Yellow; Glucose,Urine (UA) Negative (Negative); Hyaline Casts,Urine 8 /lpf (0-2); Ketones,Urine Negative (Negative); Leukocyte Esterase,Urine Trace (Negative); Mucus,Urine Many /hpf; Nitrite,Urine Negative (Negative); PH, Urine 5.5 (5.0-8.0); Protein,Urine 1+ (Negative); RBC,Urine 7 /hpf (0-5); Specific Gravity,Urine 1.026 (1.001-1.035); Squamous Epithelial Cell,Urine 21 /hpf (0-4); WBC,Urine 12 /hpf (0-5)
[2018-07-16 15:29] LABS: ALT 31 U/L (9-52); AST 22 U/L (14-36); Albumin 4.6 g/dL (3.5-5.0); Alkaline Phosphatase 83 U/L (38-126); Amylase 72 U/L (30-110); Anion Gap 11 mmol/L; Blood Urea Nitrogen 16 mg/dL (7-17); Calcium 9.2 mg/dL (8.4-10.2); Carbon Dioxide 22 mmol/L (22-30); Chloride 108 mmol/L (98-107); Glucose 114 mg/dL (74-99); Lipase 268 U/L (23-300); Potassium 3.9 mmol/L (3.5-5.1); Sodium 141 mmol/L (137-145); Total Bilirubin 0.4 mg/dL (0.2-1.3)
--- NOTE | 2018-07-16 15:31 | XR ---
EXAMINATION TYPE: XR KUB DATE OF EXAM: 07/16/2018 COMPARISON: 12/24/2017 HISTORY: pain TECHNIQUE: One view abdominal series FINDINGS: The osseous structures are intact. The bowel gas pattern is nonspecific. Lung bases are clear. Surg ical clips in the right upper quadrant. Right kidney: There is a 7 and 5 mm calcification overlying the right kidney. Left kidney: There is a 1.2 cm left renal pelvic calcification. Pelvis: There is nonspecific calcifications the pelvis which are stable from the prior exam and there fore likely vascular. IMPRESSION: 1. Nonspecific abdomen. 2. Bilateral nephrolithiasis. Calcifications in the pelvis appear stable from the prior exam.
[2018-07-16 16:39] VITALS: BP 138/78; PULSE 78; RESP 16; TEMP 97.8
== END 2018-07-16 16:36 | disposition home or self-care (01) ==
LOC: EC 13:44
DX: N20.0 Calculus of kidney (principal); I10 Essential (primary) hypertension; Z90.49 Acquired absence of other specified parts of digestive tract; Z98.890 Other specified postprocedural states; Z87.442 Personal history of urinary calculi; Z53.29 Procedure and treatment not carried out because of patient's decision for other reasons; Z79.899 Other long term (current) drug therapy
CPT/HCPCS: 36415; 80053; 82150; 83690; 85025; 81001; 81025; 74018; 99284; 96374; 96375 ×2; 96376; 96361; J2270; J2405; J1885

== ENCOUNTER → 2018-08-16 | Outpatient (CLI) | payer BC ==
--- NOTE | 2018-08-16 11:00 | XR ---
EXAMINATION TYPE: XR abdomen 1V DATE OF EXAM: 08/16/2018 COMPARISON: 07/16/2018 HISTORY: Follow-up renal calculi TECHNIQUE: One view abdominal series FINDINGS: The osseous structures are intact. The bowel gas pattern is nonspecific. Bone island seen overlying the acetabulum on the left. Left kidney: There is a stable appearing 1.2 cm left renal calcification likely within the renal pelv is. Right kidney: There appear to be multiple punctate less than 5 mm calculi estimated at 7 within the m id to lower pole of the right kidney. Pelvis: Calcifications in the left hemipelvis are stable. Tiny calculi noted within the right hemipel vis. All measure less than 5 mm. A distal right ureteral calculus excluded. IMPRESSION: 1. Stable large left renal calculus measuring 1.2 cm. 2. Numerous (7) right mid and lower pole less than 5 mm renal calculi. 3. Nonspecific calcifications in the upper right hemipelvis. A distal less than 5 mm right ureter karla culus not excluded.
== END ==
LOC: RADXRMAIN 10:41
PROVIDERS: ATTEND Urology
DX: N20.2 Calculus of kidney with calculus of ureter (principal)
CPT/HCPCS: 74018

== ENCOUNTER 2018-08-20 18:31 | Emergency (ER) | payer BC ==
[2018-08-20] MEDS ORDERED: SODIUM CHLORIDE 0.9% 1,000 ML IV STA (21:05)
[2018-08-20] MEDS ORDERED: MORPHINE SULFATE 4 MG/ML SYRINGE IV STA (21:05)
[2018-08-20 21:18] LABS: Appearance,Urine Cloudy (Clear); Bacteria,Urine Rare /hpf; Bilirubin,Urine Negative (Negative); Blood,Urine Moderate (Negative); Color,Urine Light Yellow; Glucose,Urine (UA) Negative (Negative); Ketones,Urine Negative (Negative); Leukocyte Esterase,Urine Moderate (Negative); Mucus,Urine Occasional /hpf; Nitrite,Urine Negative (Negative); PH, Urine 6.5 (5.0-8.0); Protein,Urine 1+ (Negative); RBC,Urine 103 /hpf (0-5); Specific Gravity,Urine 1.014 (1.001-1.035); Squamous Epithelial Cell,Urine 9 /hpf (0-4); Urobilinogen,Urine <2.0 mg/dL (<2.0)
[2018-08-20 21:23] LABS: Basophils # (A) 0.1 k/uL (0-0.2); Basophils % (A) 1 %; Eosinophils # (A) 0.2 k/uL (0-0.7); Eosinophils % (A) 2 %; HCT 45.2 % (34.0-46.0); HGB 14.5 gm/dL (11.4-16.0); Lymphocytes % (A) 34 %; MCH 26.8 pg (25.0-35.0); MCV 83.8 fL (80.0-100.0); Monocytes # (A) 0.9 k/uL (0-1.0); Monocytes % (A) 10 %; Neutrophils # (A) 4.5 k/uL (1.3-7.7); Neutrophils % (A) 51 %; Platelet Count 384 k/uL (150-450); RDW 13.4 % (11.5-15.5); WBC 8.8 k/uL (3.8-10.6)
[2018-08-20 21:28] LABS: Albumin 4.4 g/dL (3.5-5.0); Calcium 9.3 mg/dL (8.4-10.2); Potassium 4.3 mmol/L (3.5-5.1); Total Bilirubin 0.3 mg/dL (0.2-1.3); Total Protein 7.7 g/dL (6.3-8.2)
--- NOTE | 2018-08-20 21:46 | XR ---
EXAMINATION TYPE: XR KUB DATE OF EXAM: 08/20/2018 COMPARISON: 08/16/2018 HISTORY: Renal calculi. Flank pain TECHNIQUE: 2 views upright FINDINGS: Bowel gas pattern is normal. There is no sign of intestinal obstruction or pneumoperitoneum . Fecal pattern is normal. There are clips from cholecystectomy. There is a 1 cm calculus over the pe lvis left kidney. Lung bases are clear. There are other smaller tiny calcifications over both kidneys . IMPRESSION: Left renal calculus unchanged. Nonacute abdomen. Renal calculi. There is a calcification in the high pelvis on the left side on last exam that is not definitely seen on today's exam.
[2018-08-20] MEDS ORDERED: KETOROLAC 30 MG/ML 1 ML VIAL IVP STA (22:22)
[2018-08-20] MEDS ORDERED: ACET/COD 300 MG/30 MG STARTER PACK 6 TAB BTL PO STA (22:23)
--- NOTE | 2018-08-20 22:29 | ED ---
General Adult HPI - General Chief complaint: Abdominal Pain Stated complaint: kidney stones Source: patient, RN notes reviewed, old records reviewed Mode of arrival: ambulatory Limitations: no limitations - History of Present Illness Initial comments: 43-year-old female patient past medical history of hypertension, long history of renal calculi presents to ED with exacerbation of right and left flank pain. Patient is currently being treated on an outpatient basis with shockwave lithotripsy for renal calculi in both kidneys. Patient has her next appointment in approximately 5 days. Patient follows up with Dr. Bingham. Patient states that the pain that she is feeling is identical to the pain she has had from kidney stones in the past. Describes as a waxing and waning cramping pain in her flanks. Patient denies any dysuria. Patient denies any abdominal pain. Patient has a chest pain shortness of breath. Patient denies any fever chills, nausea vomiting diarrhea. Patient denies other complaints. Pt states that she is not . Systemic: Pt denies fatigue, myalgia, fever/chills, rash. Pt denies weakness, night sweats, weight loss. Neuro: Pt denies headache, visual disturbances, syncope or pre-syncope. HEENT: Pt denies ocular discharge or irritation, otalgia, rhinorrhea, pharyngitis or notable lymphadenopathy. Cardiopulmonary: Pt denies chest pain, SOB, heart palpitations, dyspnea on exertion. Abdominal/GI: Pt denies abdominal pain, n/v/d. : Pt denies dysuria, burning w/ urination, frequency/urgency. Denies new onset urinary or bowel incontinence. MSK: Pt denies myalgia, loss of strength or function in extremities. Neuro: Pt denies new onset weakness, paresthesias. - Related Data Home Medications Medication Instructions Recorded Confirmed Sertraline HCl [Zoloft] 100 mg PO HS 11/25/16 08/20/18 Lisinopril [Zestril] 10 mg PO HS 08/20/18 08/20/18 Previous Rx's Medication Instructions Recorded Ciprofloxacin HCl [Cipro] 500 mg PO Q12HR #20 day 08/20/18 Allergies Allergy/AdvReac Type Severity Reaction Status Date / Time No Known Allergies Allergy Verified 08/20/18 21:07 Review of Systems ROS Statement: Those systems with pertinent positive or pertinent negative responses have been documented in the HPI. ROS Other: All systems not noted in ROS Statement are negative. Past Medical History Past Medical History: Hypertension Additional Past Medical History / Comment(s): kidney stones History of Any Multi-Drug Resistant Organisms: None Reported Past Surgical History: Section, Cholecystectomy Additional Past Surgical History / Comment(s): laser removal of kidney stones Past Psychological History: No Psychological Hx Reported Smoking Status: Former smoker Past Alcohol Use History: Occasional Past Drug Use History: None Reported General Exam - General Exam Comments Initial Comments: Constitutional: NAD, AOX3, Pt has pleasant affect. HEENT: NC/AT, trachea midline, neck supple, no lymphadenopathy. Posterior pharynx non erythematous, without exudates. External ears appear normal, without discharge. Mucous membranes moist. Eyes PERRLA, EOM intact. There is no scleral icterus. No pallor noted. Cardiopulmonary: RRR, no murmurs, rubs or gallops, no JVD noted. Lungs CTAB in anterior and posterior ibarra. No peripheral edema. Abdominal exam: Abdomen soft and non-distended. Abdomen non-tender to palpation in all 4 quadrants. Bowel sounds active in LLQ. No hepatosplenomegaly. No ecchymosis. L flank mildly tender to palpation, R flank nontender palpation. CVA tenderness negative. Neuro: CN II-XII grossly intact. No nuchal rigidity. MSK: No posterior calf tenderness bilaterally, homans sign negative bilaterally. Posterior tibialis and radial pulse +2 bilaterally. Sensation intact in upper and lower extremities. Full active ROM in upper and lower extremities, 5/5 stregnth. Limitations: no limitations Course Vital Signs 08/20/18 08/20/18 18:38 22:47 Temperature 98.7 F 98.1 F Pulse Rate 93 76 Respiratory 20 18 Rate Blood Pressure 169/109 146/91 O2 Sat by Pulse 99 96 Oximetry Medical Decision Making - Medical Decision Making 43-year-old female patient past medical history of hypertension, long history of renal calculi presents to ED with exacerbation of right and left flank pain. Patient is currently being treated on an outpatient basis with shockwave lithotripsy for renal calculi in both kidneys. Patient has her next appointment in approximately 5 days. Patient follows up with Dr. Bingham. Patient states that the pain that she is feeling is identical to the pain she has had from kidney stones in the past. PT VSS, afebrile. Physical exam revealed: Abdomen soft and non-distended. Abdomen non-tender to palpation in all 4 quadrants. Bowel sounds active in LLQ. No hepatosplenomegaly. No ecchymosis. Right flank mildly tender to palpation, left leg nontender palpation. CVA tenderness negative. Laboratory investigations revealed non-impressive CBC, CMP, UA displayed 109 red blood cells, 39 white blood cells, 9 squamous epithelial cells , moderate leukocyte esterase. KUB displayed left renal calculus unchanged and smaller tiny calcification over both kidneys. Review of prior study reveals she may have passed renal calculi in R kidneys. Pt pain well controleld in ED and administered 1 L of normal saline. Patient is currently taking Flomax at home prescribed by Dr. Aggarwal. Patient to continue this treatment. Patient prescribed ciprofloxacin for UTI. Patient to call Dr. Aggarwal tomorrow for continued evaluation of renal calculi and treatment. Patient to follow up with PCP in 1-2 days. Patient to return to ED if new signs symptoms develop or if condition worsens in any way. Case discussed in depth with Dr. Galvan. Pt not driving home. - Lab Data Result diagrams: 08/20/18 20:31 08/20/18 20:31 Lab Results 08/20/18 08/20/18 08/20/18 Range/Units 20:31 20:31 20:31 WBC 8.8 (3.8-10.6) k/uL RBC 5.40 (3.80-5.40) m/uL Hgb 14.5 (11.4-16.0) gm/dL Hct 45.2 (34.0-46.0) % MCV 83.8 (80.0-100.0) fL MCH 26.8 (25.0-35.0) pg MCHC 32.0 (31.0-37.0) g/dL RDW 13.4 (11.5-15.5) % Plt Count 384 (150-450) k/uL Neutrophils % 51 % Lymphocytes % 34 % Monocytes % 10 % Eosinophils % 2 % Basophils % 1 % Neutrophils # 4.5 (1.3-7.7) k/uL Lymphocytes # 3.0 (1.0-4.8) k/uL Monocytes # 0.9 (0-1.0) k/uL Eosinophils # 0.2 (0-0.7) k/uL Basophils # 0.1 (0-0.2) k/uL Sodium 142 (137-145) mmol/L Potassium 4.3 (3.5-5.1) mmol/L Chloride 105 (98-107) mmol/L Carbon Dioxide 26 (22-30) mmol/L Anion Gap 11 mmol/L BUN 16 (7-17) mg/dL Creatinine 0.97 (0.52-1.04) mg/dL Est GFR (CKD-EPI)AfAm 83 (>60 ml/min/1.73 sqM) Est GFR (CKD-EPI)NonAf 72 (>60 ml/min/1.73 sqM) Glucose 99 (74-99) mg/dL Calcium 9.3 (8.4-10.2) mg/dL Total Bilirubin 0.3 (0.2-1.3) mg/dL AST 14 (14-36) U/L ALT 29 (9-52) U/L Alkaline Phosphatase 80 (38-126) U/L Total Protein 7.7 (6.3-8.2) g/dL Albumin 4.4 (3.5-5.0) g/dL Urine Color Urine Appearance (Clear) Urine pH (5.0-8.0) Ur Specific [place] (1.001-1.035) Urine Protein (Negative) Urine Glucose (UA) (Negative) Urine Ketones (Negative) Urine Blood (Negative) Urine Nitrite (Negative) Urine Bilirubin (Negative) Urine Urobilinogen (<2.0) mg/dL Ur Leukocyte Esterase (Negative) Urine RBC (0-5) /hpf Urine WBC (0-5) /hpf Ur Squamous Epith Cells (0-4) /hpf Urine Bacteria (None) /hpf Urine Mucus (None) /hpf Urine HCG, Qual Not Detected (Not Detectd) 08/20/18 Range/Units 20:31 WBC (3.8-10.6) k/uL RBC (3.80-5.40) m/uL Hgb (11.4-16.0) gm/dL Hct (34.0-46.0) % MCV (80.0-100.0) fL MCH (25.0-35.0) pg MCHC (31.0-37.0) g/dL RDW (11.5-15.5) % Plt Count (150-450) k/uL Neutrophils % % Lymphocytes % % Monocytes % % Eosinophils % % Basophils % % Neutrophils # (1.3-7.7) k/uL Lymphocytes # (1.0-4.8) k/uL Monocytes # (0-1.0) k/uL Eosinophils # (0-0.7) k/uL Basophils # (0-0.2) k/uL Sodium (137-145) mmol/L Potassium (3.5-5.1) mmol/L Chloride (98-107) mmol/L Carbon Dioxide (22-30) mmol/L Anion Gap mmol/L BUN (7-17) mg/dL Creatinine (0.52-1.04) mg/dL Est GFR (CKD-EPI)AfAm (>60 ml/min/1.73 sqM) Est GFR (CKD-EPI)NonAf (>60 ml/min/1.73 sqM) Glucose (74-99) mg/dL Calcium (8.4-10.2) mg/dL Total Bilirubin (0.2-1.3) mg/dL AST (14-36) U/L ALT (9-52) U/L Alkaline Phosphatase (38-126) U/L Total Protein (6.3-8.2) g/dL Albumin (3.5-5.0) g/dL Urine Color Light Yellow Urine Appearance Cloudy H (Clear) Urine pH 6.5 (5.0-8.0) Ur Specific [place] 1.014 (1.001-1.035) Urine Protein 1+ H (Negative) Urine Glucose (UA) Negative (Negative) Urine Ketones Negative (Negative) Urine Blood Moderate H (Negative) Urine Nitrite Negative (Negative) Urine Bilirubin Negative (Negative) Urine Urobilinogen <2.0 (<2.0) mg/dL Ur Leukocyte Esterase Moderate H (Negative) Urine RBC 103 H (0-5) /hpf Urine WBC 39 H (0-5) /hpf Ur Squamous Epith Cells 9 H (0-4) /hpf Urine Bacteria Rare H (None) /hpf Urine Mucus Occasional H (None) /hpf Urine HCG, Qual (Not Detectd) Disposition Clinical Impression: UTI (urinary tract infection), Renal calculi Disposition: HOME SELF-CARE Condition: Stable Instructions: Kidney Stones (ED) Additional Instructions: Patient to adhere to previously discussed treatment plan and will take medication(s) as directed. Patient to follow up with PCP in 1-2 days. Patient to return to ED if symptoms do not improve. Prescriptions: Ciprofloxacin HCl [Cipro] 500 mg PO Q12HR #20 day Is patient prescribed a controlled substance at d/c from ED?: No Referrals: Telma Aparicio DO [Primary Care Provider] - 1-2 days Grupo Bingham MD [STAFF PHYSICIAN] - 1-2 days
[2018-08-20] MEDS ORDERED: CIPROFLOXACIN HCL 500 MG TAB PO STA (22:39)
[2018-08-20 22:49] VITALS: BP 146/91; PULSE 76; RESP 18; TEMP 98.1
[2018-08-20] MEDS ORDERED: MORPHINE SULFATE 4 MG/ML SYRINGE IVP STA (22:50)
== END 2018-08-20 23:07 | disposition home or self-care (01) ==
LOC: EC 18:31
DX: N39.0 Urinary tract infection, site not specified (principal); N20.0 Calculus of kidney; I10 Essential (primary) hypertension; Z87.891 Personal history of nicotine dependence; Z79.899 Other long term (current) drug therapy; Z90.49 Acquired absence of other specified parts of digestive tract
CPT/HCPCS: 36415; 80053; 85025; 81001; 81025; 87086; 74018; 99284; 96374; 96375; 96376; 96361 ×2; J2270; J1885

== ENCOUNTER 2018-08-31 16:25 | Emergency (ER) | payer BC ==
[2018-08-31] MEDS ORDERED: ONDANSETRON 4 MG/2 ML VIAL IVP STA (16:48)
[2018-08-31] MEDS ORDERED: MORPHINE SULFATE 4 MG/ML SYRINGE IVP STA ×2 (16:48→19:19)
[2018-08-31] MEDS ORDERED: KETOROLAC 30 MG/ML 1 ML VIAL IVP STA (16:48)
[2018-08-31] MEDS ORDERED: SODIUM CHLORIDE 0.9% 1,000 ML IV ONE (16:58)
[2018-08-31 17:47] LABS: Basophils # (A) 0.1 k/uL (0-0.2); Basophils % (A) 1 %; Eosinophils # (A) 0.3 k/uL (0-0.7); Eosinophils % (A) 2 %; HCT 45.8 % (34.0-46.0); HGB 14.7 gm/dL (11.4-16.0); Lymphocytes # (A) 2.3 k/uL (1.0-4.8); Lymphocytes % (A) 15 %; MCH 27.2 pg (25.0-35.0); MCV 84.9 fL (80.0-100.0); Mean Platelet Volume 6.6; Monocytes # (A) 0.8 k/uL (0-1.0); Monocytes % (A) 5 %; Neutrophils # (A) 11.1 k/uL (1.3-7.7); Neutrophils % (A) 75 %; Platelet Count 375 k/uL (150-450); RDW 13.5 % (11.5-15.5); WBC 14.8 k/uL (3.8-10.6)
[2018-08-31 17:49] LABS: Appearance,Urine Cloudy (Clear); Bilirubin,Urine Negative (Negative); Blood,Urine Large (Negative); Color,Urine Light Red; Glucose,Urine (UA) Negative (Negative); Ketones,Urine Negative (Negative); Leukocyte Esterase,Urine Trace (Negative); Mucus,Urine Rare /hpf; Nitrite,Urine Negative (Negative); Protein,Urine 2+ (Negative); RBC,Urine >182 /hpf (0-5); Specific Gravity,Urine 1.016 (1.001-1.035); Squamous Epithelial Cell,Urine <1 /hpf (0-4); Urobilinogen,Urine <2.0 mg/dL (<2.0)
[2018-08-31 17:53] LABS: Calcium 9.9 mg/dL (8.4-10.2); Total Bilirubin 0.7 mg/dL (0.2-1.3)
[2018-08-31 17:54] LABS: Albumin 4.7 g/dL (3.5-5.0); Potassium 4.9 mmol/L (3.5-5.1); Total Protein 8.3 g/dL (6.3-8.2)
--- NOTE | 2018-08-31 18:19 | XR ---
EXAMINATION TYPE: XR KUB DATE OF EXAM: 08/31/2018 COMPARISON: 08/20/2018 HISTORY: Renal stones TECHNIQUE: 2 views FINDINGS: There are clips from cholecystectomy. There is no sign of intestinal obstruction or pneumop eritoneum. Fecal pattern is normal. Lung bases are clear. There is faint 8 mm calcification over lowe r pole left kidney. IMPRESSION: Nonacute abdomen. Calcifications over the left kidney has changed position and appears le ss dense than last exam.
--- NOTE | 2018-08-31 18:51 | CT ---
EXAMINATION TYPE: CT abdomen pelvis w con DATE OF EXAM: 08/31/2018 COMPARISON: 11/20/2015 HISTORY: Abominal pain. Recent left kidney stent removal CT DLP: 1208.2 mGycm Automated exposure control for dose reduction was used. TECHNIQUE: Helical acquisition of images was performed from the lung bases through the pelvis. CONTRAST: Performed without Oral Contrast and with IV Contrast, patient injected with 100 mL of Isovue 300. FINDINGS: Lung bases are clear. There is no pleural effusion. Heart size is normal. Liver spleen pancreas appear normal. Bile ducts are not dilated. There are clips from cholecystectomy . There is small hiatal hernia. Stomach is otherwise normal. There is no adrenal mass. There is left-sided hydronephrosis and hydroureter. There are multiple calculi in the lower left uret er that measure up to 5 mm. There are multiple calculi in the left kidney that measure up to 1 cm. Th ere are small calculi in the right kidney that measure up to 3 mm. There is no right-sided hydronephr osis. There is left side perinephric edema and periureteral edema. There are bilateral renal cortical cysts that measure up to 3 cm. Uterus is anteverted. Bladder distends smoothly. There is no free fluid in the pelvis. Lumbar spine i s intact. There is also 4 mm calculus near the left ureterovesical junction. Appendix appears normal. There is no ascites. There is no sign of free air. There is no inguinal hernia. There is no evidence of a bowel obstruction. IMPRESSION: NUMEROUS LEFT SIDE URETERAL CALCULI WITH LEFT-SIDED HYDRONEPHROSIS AND HYDROURETER. MULTIPLE SMALL RI GHT RENAL CALCULI. MULTIPLE LEFT RENAL CALCULI ARE INCREASED COMPARED TO OLD EXAM. Left renal obstruc tion is new compared to old exam.
--- NOTE | 2018-08-31 19:01 | ED ---
Abdominal Pain HPI <Ahsan Bloom - Last Filed: 08/31/18 19:36> - General Source: patient Mode of arrival: ambulatory Limitations: no limitations <Cha Dangelo - Last Filed: 08/31/18 20:47> - General Chief Complaint: Abdominal Pain Stated Complaint: Back pain Time Seen by Provider: 08/31/18 16:41 - History of Present Illness Initial Comments: 43-year-old female with significant history of nephrolithiasis presents today for chief complaint of left flank pain status post removal of stent this morning. Patient states she is history significant for large renal calculi. She states she recently had stent placement on 08/26/[address] Amato. Patient states she had removal of the stent this morning via outpatient ureteroscopy. Patient states she's had this procedure before and has not had significant pain status post stent removal. Patient states that the stent was removed she's had significant left flank pain, she states she called her urologist's office who stated she should take ibuprofen and Tylenol, increase fluid intake. Patient states she attempted these measures for 4 hours however pain increased. Patient states she no longer take the pain and [facility]. Patient with the hematuria, denies dysuria or urgency. Patient denies any fever, chills or night sweats. (Cha Dangelo) - Related Data Home Medications Medication Instructions Recorded Confirmed Sertraline HCl [Zoloft] 100 mg PO HS 11/25/16 08/31/18 Lisinopril [Zestril] 10 mg PO HS 08/20/18 08/31/18 Previous Rx's Medication Instructions Recorded HYDROcodone/APAP 5-325MG [[place] 5] 1 each PO Q6HR PRN 3 Days #12 tab 08/31/18 Ketorolac [Toradol] 10 mg PO Q8HR 3 Days #15 tab 08/31/18 Tamsulosin [Flomax] 0.4 mg PO DAILY 7 Days #7 cap 08/31/18 Allergies Allergy/AdvReac Type Severity Reaction Status Date / Time No Known Allergies Allergy Verified 08/31/18 16:39 Review of Systems ROS Other: All systems not noted in ROS Statement are negative. <Ahsan Bloom - Last Filed: 08/31/18 19:36> ROS Other: All systems not noted in ROS Statement are negative. <Cha Dangelo - Last Filed: 08/31/18 20:47> ROS Statement: Those systems with pertinent positive or pertinent negative responses have been documented in the HPI. Past Medical History Past Medical History: Hypertension Additional Past Medical History / Comment(s): kidney stones History of Any Multi-Drug Resistant Organisms: None Reported Past Surgical History: Section, Cholecystectomy Additional Past Surgical History / Comment(s): laser removal of kidney stones, stents placed in bilateral kidneys ons and off. Past Psychological History: No Psychological Hx Reported Smoking Status: Former smoker Past Alcohol Use History: Occasional Past Drug Use History: None Reported <Cha Dangelo - Last Filed: 08/31/18 20:47> General Exam <Ahsan Bloom - Last Filed: 08/31/18 19:36> Limitations: no limitations <Cha Dangelo - Last Filed: 08/31/18 20:47> - General Exam Comments Initial Comments: General: The patient is awake and alert, in no distress, and does not appear acutely ill. Eye: Pupils are equal, round and reactive to light, extra-ocular movements are intact. No nystagmus. There is normal conjunctiva bilaterally. No signs of icterus. Ears, nose, mouth and throat: There are moist mucous membranes and no oral lesions. Neck: The neck is supple, there is no tenderness or JVD. Cardiovascular: There is a regular rate and rhythm. No murmur, rub or gallop is appreciated. Respiratory: Lungs are clear to auscultation, respirations are non-labored, breath sounds are equal. No wheezes, stridor, rales, or rhonchi. Gastrointestinal: Soft, non-distended, non-tender abdomen without masses or organomegaly noted. There is no rebound or guarding present. Mild left sided CVA tenderness. Bowel sounds are unremarkable. Musculoskeletal: Normal ROM, no tenderness. Strength 5/5. Sensation intact. Pulses equal bilaterally 2+. Neurological: A&O x 3. CN II-XII intact, There are no obvious motor or sensory deficits. Coordination appears grossly intact. Speech is normal. Skin: Skin is warm and dry and no rashes or lesions are noted. Psychiatric: Cooperative, appropriate mood & affect, normal judgment. (Cha Dangelo) Vital Signs 08/31/18 08/31/18 16:27 20:05 Temperature 98.4 F 98.0 F Pulse Rate 82 98 Respiratory 20 17 Rate Blood Pressure 162/113 133/86 O2 Sat by Pulse 99 96 Oximetry Medical Decision Making - Lab Data Result diagrams: 08/31/18 17:30 08/31/18 17:30 <Ahsan Bloom - Last Filed: 08/31/18 19:36> - Lab Data Result diagrams: 08/31/18 17:30 08/31/18 17:30 <Cha Dangelo - Last Filed: 08/31/18 20:47> - Medical Decision Making 43-year-old female history of kidney stones, stent removed today by urology. Patient presenting with left flank pain. CT obtained, shows multiple stones within the left ureter, 4 mm at the left UVJ and distal stone a 5 mm. This likely represents the larger one son meter stone that was previously seen on x- ray. Patient does have hematuria, no signs of infection in the urine. Given Toradol, morphine, reevaluation she is feeling better. I discussed the case with Dr. Shaffer, covering urologist, at this time recommends outpatient follow- up. Patient is comfortable with this plan, will return with worsening or changing symptoms. Will follow-up with urology in the next one-two days. She is prescribed Toradol, [place], and Flomax. She will strain her urine. (Ahsan Bloom) 43-year-old female with significant history of nephrolithiasis, patient states she had a large left-sided stone removed by urology 08/26/2018. Patient states that her stent removed today outpatient. Patient presenting for persistent left flank pain increases from prior to removal. CT revealed multiple stones within the left ureter including a 4 mm and 5 mm and left UVJ and distal ureter. Patient has hematuria there is no signs for over infection upon urinalysis. Negative nitrates. Patient given Toradol, morphine and Zofran for nausea. Upon reevaluation patient states symptoms are improving. Patient given another dose of morphine. Dr. Mendosa on-call urologist covering for patient's urologist Dr. Bingham recommends outpatient follow-up in office. Patient is agreeable plan discharge. Patient given Ma[place], Toradol and Flomax upon discharge. All the risks involved with Maunaloa were discussed at length and in detail with patient including risk of overdose, respiratory depression and . As well as addiction. Patient verbalized understanding and would like to continue with prescription to be used for severe pain. Patient has been provided strainer for urine. Patient states she is ready and comfortable discharge. Patient discharged in stable condition appearing well and nontoxic. Dr. Bloom was consulted throughout case, he [place] [facility] [id number]. He contacted Dr. Shaffer and was the physician who spoke with him. (Cha Dangelo) - Lab Data Lab Results 08/31/18 08/31/18 08/31/18 Range/Units 17:30 17:30 17:30 WBC 14.8 H (3.8-10.6) k/uL RBC 5.40 (3.80-5.40) m/uL Hgb 14.7 (11.4-16.0) gm/dL Hct 45.8 (34.0-46.0) % MCV 84.9 (80.0-100.0) fL MCH 27.2 (25.0-35.0) pg MCHC 32.0 (31.0-37.0) g/dL RDW 13.5 (11.5-15.5) % Plt Count 375 (150-450) k/uL Neutrophils % 75 % Lymphocytes % 15 % Monocytes % 5 % Eosinophils % 2 % Basophils % 1 % Neutrophils # 11.1 H (1.3-7.7) k/uL Lymphocytes # 2.3 (1.0-4.8) k/uL Monocytes # 0.8 (0-1.0) k/uL Eosinophils # 0.3 (0-0.7) k/uL Basophils # 0.1 (0-0.2) k/uL Sodium 142 (137-145) mmol/L Potassium 4.9 (3.5-5.1) mmol/L Chloride 109 H (98-107) mmol/L Carbon Dioxide 21 L (22-30) mmol/L Anion Gap 12 mmol/L BUN 18 H (7-17) mg/dL Creatinine 0.93 (0.52-1.04) mg/dL Est GFR (CKD-EPI)AfAm 88 (>60 ml/min/1.73 sqM) Est GFR (CKD-EPI)NonAf 76 (>60 ml/min/1.73 sqM) Glucose 85 (74-99) mg/dL Calcium 9.9 (8.4-10.2) mg/dL Total Bilirubin 0.7 (0.2-1.3) mg/dL AST 41 H (14-36) U/L ALT 35 (9-52) U/L Alkaline Phosphatase 100 (38-126) U/L Total Protein 8.3 H (6.3-8.2) g/dL Albumin 4.7 (3.5-5.0) g/dL Urine Color Light Red Urine Appearance Cloudy H (Clear) Urine pH 6.0 (5.0-8.0) Ur Specific [place] 1.016 (1.001-1.035) Urine Protein 2+ H (Negative) Urine Glucose (UA) Negative (Negative) Urine Ketones Negative (Negative) Urine Blood Large H (Negative) Urine Nitrite Negative (Negative) Urine Bilirubin Negative (Negative) Urine Urobilinogen <2.0 (<2.0) mg/dL Ur Leukocyte Esterase Trace H (Negative) Urine RBC >182 H (0-5) /hpf Urine WBC 5 (0-5) /hpf Ur Squamous Epith Cells <1 (0-4) /hpf Urine Mucus Rare H (None) /hpf Disposition <Ahsan Bloom N - Last Filed: 08/31/18 19:36> Is patient prescribed a controlled substance at d/c from ED?: No Time of Disposition: 19:49 <Cha Dangelo - Last Filed: 08/31/18 20:47> Clinical Impression: Renal calculus, bilateral Disposition: HOME SELF-CARE Condition: Good Additional Instructions: Please use medication as discussed. Please follow-up with family doctor in the next 2 days. Please follow-up with Dr. Aggarwal in next 1-2 days. Please return to emergency room if the symptoms increase or worsen or for any other concerns. Prescriptions: HYDROcodone/APAP 5-325MG [[place] 5] 1 each PO Q6HR PRN 3 Days #12 tab PRN Reason: Severe Pain Ketorolac [Toradol] 10 mg PO Q8HR 3 Days #15 tab Tamsulosin [Flomax] 0.4 mg PO DAILY 7 Days #7 cap Referrals: Telma Aparicio DO [Primary Care Provider] - 1-2 days Grupo Bingham MD [STAFF PHYSICIAN] - 1-2 days
[2018-08-31 20:07] VITALS: BP 133/86; PULSE 98; RESP 17; TEMP 98
== END 2018-08-31 20:00 | disposition home or self-care (01) ==
LOC: EC 16:25
DX: N20.2 Calculus of kidney with calculus of ureter (principal); I10 Essential (primary) hypertension; Z87.891 Personal history of nicotine dependence; Z79.899 Other long term (current) drug therapy; Z90.49 Acquired absence of other specified parts of digestive tract; Z98.890 Other specified postprocedural states
CPT/HCPCS: 99284; 96374; 96375 ×2; 96376; 96361; 36415; 80053; 85025; 81001; 74018; 74177; J2270; J2405; J1885; Q9967

== ENCOUNTER → 2018-09-10 | Outpatient (CLI) | payer BC ==
--- NOTE | 2018-09-10 14:24 | XR ---
Abdomen HISTORY: Renal calculus, status post lithotripsy Frontal view of the abdomen on 2 images correlated to prior abdomen CT abdomen pelvis 08/31/2017 Surgical clips present in the right upper quadrant. Calcifications within the pelvis are stable. No e vident pneumoperitoneum or bowel obstruction. Possible bone island left ilium. Overlying bowel gas ma y obscure detail. Multiple calcifications overlie the kidneys measure only 3 to 4 mm. IMPRESSION: Probable distal left ureteral calculus. Bilateral nephrolithiasis.
== END | disposition home or self-care (01) ==
LOC: RADXRMAIN 12:48
PROVIDERS: ATTEND Urology
DX: N20.0 Calculus of kidney (principal)
CPT/HCPCS: 74018

== ENCOUNTER 2019-02-20 12:27 | Emergency (ER) | payer BC ==
[2019-02-20 13:03] VITALS: PULSE 78; RESP 16
[2019-02-20] MEDS ORDERED: SODIUM CHLORIDE 0.9% 1,000 ML IV STA (13:11)
[2019-02-20 13:42] LABS: Basophils # (A) 0.1 k/uL (0-0.2); Basophils % (A) 1 %; Eosinophils # (A) 0.2 k/uL (0-0.7); Eosinophils % (A) 2 %; HCT 43.8 % (34.0-46.0); Lymphocytes # (A) 2.4 k/uL (1.0-4.8); Lymphocytes % (A) 25 %; MCH 26.5 pg (25.0-35.0); MCHC 32.1 g/dL (31.0-37.0); MCV 82.8 fL (80.0-100.0); Mean Platelet Volume 6.7; Monocytes # (A) 0.5 k/uL (0-1.0); Monocytes % (A) 6 %; Neutrophils # (A) 6.3 k/uL (1.3-7.7); Neutrophils % (A) 65 %; Platelet Count 387 k/uL (150-450); RBC 5.29 m/uL (3.80-5.40); RDW 13.8 % (11.5-15.5); WBC 9.8 k/uL (3.8-10.6)
[2019-02-20 13:47] LABS: Appearance,Urine Clear (Clear); Bilirubin,Urine Negative (Negative); Blood,Urine Negative (Negative); Color,Urine Yellow; Glucose,Urine (UA) Negative (Negative); Ketones,Urine 1+ (Negative); Leukocyte Esterase,Urine Negative (Negative); Nitrite,Urine Negative (Negative); Protein,Urine Negative (Negative); Specific Gravity,Urine 1.019 (1.001-1.035); Urobilinogen,Urine <2.0 mg/dL (<2.0)
[2019-02-20 13:55] LABS: ALT 20 U/L (9-52); AST 18 U/L (14-36); African American GFR (CKD) >90 (>60 ml/min/1.73 sqM); Albumin 4.5 g/dL (3.5-5.0); Alkaline Phosphatase 96 U/L (38-126); Anion Gap 10 mmol/L; Blood Urea Nitrogen 15 mg/dL (7-17); Calcium 9.4 mg/dL (8.4-10.2); Carbon Dioxide 24 mmol/L (22-30); Chloride 107 mmol/L (98-107); Glucose 83 mg/dL (74-99); Lipase 139 U/L (23-300); Sodium 141 mmol/L (137-145); Total Bilirubin 0.5 mg/dL (0.2-1.3); Total Protein 7.7 g/dL (6.3-8.2)
[2019-02-20] MEDS ORDERED: KETOROLAC 30 MG/ML 1 ML VIAL IVP STA (13:55)
[2019-02-20] MEDS ORDERED: ONDANSETRON 4 MG/2 ML VIAL IVP STA (13:55)
--- NOTE | 2019-02-20 14:28 | XR ---
EXAMINATION TYPE: XR KUB DATE OF EXAM: 02/20/2019 COMPARISON: 09/10/2018 HISTORY: Flank pain TECHNIQUE: 2 views upright FINDINGS: There is no sign of intestinal obstruction or pneumoperitoneum. Fecal pattern is normal. Th ere are clips from cholecystectomy. There is no evidence of a mass. IMPRESSION: Nonacute abdomen. No change. No evidence of a renal calculus.
[2019-02-20] MEDS ORDERED: MORPHINE SULFATE 4 MG/ML SYRINGE IV STA (14:42)
--- NOTE | 2019-02-20 15:09 | ED ---
General Adult HPI - General Source: patient, RN notes reviewed, old records reviewed Mode of arrival: ambulatory Limitations: no limitations <Sulaiman Mejia - Last Filed: 02/20/19 15:08> <Donnell Lawton - Last Filed: 02/20/19 15:32> - General Chief complaint: Urogenital Stated complaint: Kidney stone Time Seen by Provider: 02/20/19 13:11 - History of Present Illness Initial comments: 43-year-old female patient presents to ED with complaint of right flank pain. Patient has a history of kidney stones, patient reports this feels identical this kidney stones in the past. Patient which she has had nausea without emesis. Patient denies any other complaints at this time. Systemic: Pt denies fatigue, fever/chills, rash. Pt denies weakness, night sweats, weight loss. Neuro: Pt denies headache, visual disturbances, syncope or pre-syncope. HEENT: Pt denies ocular discharge or irritation, otalgia, rhinorrhea, pharyngitis or notable lymphadenopathy. Cardiopulmonary: Pt denies chest pain, SOB, heart palpitations, dyspnea on exertion. Abdominal/GI: Pt denies abdominal pain, n/v/d. : Pt denies dysuria, burning w/ urination, frequency/urgency. Denies new onset urinary or bowel incontinence. MSK: Pt denies myalgia, loss of strength or function in extremities. Neuro: Pt denies new onset weakness, paresthesias. (Sulaiman Mejia) - Related Data Home Medications Medication Instructions Recorded Confirmed Sertraline HCl [Zoloft] 100 mg PO HS 11/25/16 08/31/18 Lisinopril [Zestril] 10 mg PO HS 08/20/18 08/31/18 Previous Rx's Medication Instructions Recorded HYDROcodone/APAP 5-325MG [[place] 5] 1 each PO Q6HR PRN 3 Days #12 tab 08/31/18 Ketorolac [Toradol] 10 mg PO Q8HR 3 Days #15 tab 08/31/18 Tamsulosin [Flomax] 0.4 mg PO DAILY 7 Days #7 cap 08/31/18 Allergies Allergy/AdvReac Type Severity Reaction Status Date / Time No Known Allergies Allergy Verified 02/20/19 13:04 Review of Systems ROS Other: All systems not noted in ROS Statement are negative. <Sulaiman Mejia - Last Filed: 02/20/19 15:08> ROS Other: All systems not noted in ROS Statement are negative. <Donnell Lawton - Last Filed: 02/20/19 15:32> ROS Statement: Those systems with pertinent positive or pertinent negative responses have been documented in the HPI. Past Medical History Past Medical History: Hypertension Additional Past Medical History / Comment(s): kidney stones History of Any Multi-Drug Resistant Organisms: None Reported Past Surgical History: Section, Cholecystectomy Additional Past Surgical History / Comment(s): laser removal of kidney stones, stents placed in bilateral kidneys ons and off. Past Psychological History: No Psychological Hx Reported Smoking Status: Former smoker Past Alcohol Use History: Occasional Past Drug Use History: None Reported <Sulaiman Mejia - Last Filed: 02/20/19 15:08> General Exam Limitations: no limitations <Sulaiman Mejia - Last Filed: 02/20/19 15:08> - General Exam Comments Initial Comments: Constitutional: NAD, AOX3, Pt has pleasant affect. HEENT: NC/AT, trachea midline, neck supple, no lymphadenopathy. Posterior pharynx non erythematous, without exudates. External ears appear normal, without discharge. Mucous membranes moist. Eyes PERRLA, EOM intact. There is no scleral icterus. No pallor noted. Cardiopulmonary: RRR, no murmurs, rubs or gallops, no JVD noted. Lungs CTAB in anterior and posterior ibarra. No peripheral edema. Abdominal exam: Abdomen soft and non-distended. Abdomen non-tender to palpation in all 4 quadrants. Bowel sounds active in LLQ. No hepatosplenomegaly. No ecchymosis no CVA tenderness bilaterally. Neuro: CN II-XII grossly intact. No nuchal rigidity. No raccon eyes, no esteban sign, no hemotympanum. No cervical spinal tenderness. MSK: No posterior calf tenderness bilaterally, homans sign negative bilaterally. Posterior tibialis and radial pulse +2 bilaterally. Sensation intact in upper and lower extremities. Full active ROM in upper and lower extremities, 5/5 s tregnth. (Sulaiman Mejia) Course Vital Signs 02/20/19 02/20/19 13:01 15:22 Temperature 98.6 F 97.9 F Pulse Rate 78 78 Respiratory 16 16 Rate Blood Pressure 136/88 128/70 O2 Sat by Pulse 95 98 Oximetry Medical Decision Making - Lab Data Result diagrams: 02/20/19 13:24 02/20/19 13:24 <Sulaiman Mejia - Last Filed: 02/20/19 15:08> - Lab Data Result diagrams: 02/20/19 13:24 02/20/19 13:24 <Donnell Lawton - Last Filed: 02/20/19 15:32> - Medical Decision Making 43-year-old female patient presents ED chief complaint of leg pain which feels identical to kidney stones in the past. Patient does follow up with urologist Dr. Bingham. Patient vital signs stable, afebrile. Physical exam did not display acute pathology. Laboratory investigations are noncompressive. KUB displayed an acute abdomen, no change, no evidence of renal calculi. Patient was offered and declined a CAT scan of her abdomen/pelvis citing radiation burden. Patient will discharge, follow up with her primary care provider and urologist. Return precautions were discussed in depth, patient was understanding. Case discussed with Dr. Lawton. (Sulaiman Mejia) I discussed the presentation, lab results, management with PA. At this time, believe that this is appropriate care plan. Patient was given strict return parameters and instructed to follow up with primary care and urology in 1-2 days. (Donnell Lawton) - Lab Data Lab Results 02/20/19 02/20/19 02/20/19 Range/Units 13:24 13:24 13:24 WBC 9.8 (3.8-10.6) k/uL RBC 5.29 (3.80-5.40) m/uL Hgb 14.0 (11.4-16.0) gm/dL Hct 43.8 (34.0-46.0) % MCV 82.8 (80.0-100.0) fL MCH 26.5 (25.0-35.0) pg MCHC 32.1 (31.0-37.0) g/dL RDW 13.8 (11.5-15.5) % Plt Count 387 (150-450) k/uL Neutrophils % 65 % Lymphocytes % 25 % Monocytes % 6 % Eosinophils % 2 % Basophils % 1 % Neutrophils # 6.3 (1.3-7.7) k/uL Lymphocytes # 2.4 (1.0-4.8) k/uL Monocytes # 0.5 (0-1.0) k/uL Eosinophils # 0.2 (0-0.7) k/uL Basophils # 0.1 (0-0.2) k/uL Sodium 141 (137-145) mmol/L Potassium 4.0 (3.5-5.1) mmol/L Chloride 107 (98-107) mmol/L Carbon Dioxide 24 (22-30) mmol/L Anion Gap 10 mmol/L BUN 15 (7-17) mg/dL Creatinine 0.73 (0.52-1.04) mg/dL Est GFR (CKD-EPI)AfAm >90 (>60 ml/min/1.73 sqM) Est GFR (CKD-EPI)NonAf >90 (>60 ml/min/1.73 sqM) Glucose 83 (74-99) mg/dL Plasma Lactic Acid Anthony 1.0 (0.7-2.0) mmol/L Calcium 9.4 (8.4-10.2) mg/dL Total Bilirubin 0.5 (0.2-1.3) mg/dL AST 18 (14-36) U/L ALT 20 (9-52) U/L Alkaline Phosphatase 96 (38-126) U/L Total Protein 7.7 (6.3-8.2) g/dL Albumin 4.5 (3.5-5.0) g/dL Lipase 139 (23-300) U/L Urine Color Urine Appearance (Clear) Urine pH (5.0-8.0) Ur Specific [place] (1.001-1.035) Urine Protein (Negative) Urine Glucose (UA) (Negative) Urine Ketones (Negative) Urine Blood (Negative) Urine Nitrite (Negative) Urine Bilirubin (Negative) Urine Urobilinogen (<2.0) mg/dL Ur Leukocyte Esterase (Negative) Urine HCG, Qual (Not Detectd) 02/20/19 02/20/19 Range/Units 13:27 13:27 WBC (3.8-10.6) k/uL RBC (3.80-5.40) m/uL Hgb (11.4-16.0) gm/dL Hct (34.0-46.0) % MCV (80.0-100.0) fL MCH (25.0-35.0) pg MCHC (31.0-37.0) g/dL RDW (11.5-15.5) % Plt Count (150-450) k/uL Neutrophils % % Lymphocytes % % Monocytes % % Eosinophils % % Basophils % % Neutrophils # (1.3-7.7) k/uL Lymphocytes # (1.0-4.8) k/uL Monocytes # (0-1.0) k/uL Eosinophils # (0-0.7) k/uL Basophils # (0-0.2) k/uL Sodium (137-145) mmol/L Potassium (3.5-5.1) mmol/L Chloride (98-107) mmol/L Carbon Dioxide (22-30) mmol/L Anion Gap mmol/L BUN (7-17) mg/dL Creatinine (0.52-1.04) mg/dL Est GFR (CKD-EPI)AfAm (>60 ml/min/1.73 sqM) Est GFR (CKD-EPI)NonAf (>60 ml/min/1.73 sqM) Glucose (74-99) mg/dL Plasma Lactic Acid Anthony (0.7-2.0) mmol/L Calcium (8.4-10.2) mg/dL Total Bilirubin (0.2-1.3) mg/dL AST (14-36) U/L ALT (9-52) U/L Alkaline Phosphatase (38-126) U/L Total Protein (6.3-8.2) g/dL Albumin (3.5-5.0) g/dL Lipase (23-300) U/L Urine Color Yellow Urine Appearance Clear (Clear) Urine pH 6.0 (5.0-8.0) Ur Specific [place] 1.019 (1.001-1.035) Urine Protein Negative (Negative) Urine Glucose (UA) Negative (Negative) Urine Ketones 1+ H (Negative) Urine Blood Negative (Negative) Urine Nitrite Negative (Negative) Urine Bilirubin Negative (Negative) Urine Urobilinogen <2.0 (<2.0) mg/dL Ur Leukocyte Esterase Negative (Negative) Urine HCG, Qual Not Detected (Not Detectd) Disposition Is patient prescribed a controlled substance at d/c from ED?: No <Sulaiman Mejia - Last Filed: 02/20/19 15:08> <Donnell Lawton - Last Filed: 02/20/19 15:32> Clinical Impression: Flank pain Disposition: HOME SELF-CARE Condition: Stable Instructions (If sedation given, give patient instructions): Flank Pain (ED) Additional Instructions: Patient to adhere to previously discussed treatment plan and will take medication(s) as directed. Patient to follow up with PCP in 1-2 days. Patient to return to ED if symptoms do not improve. Follow-up with urologist and primary care physician tomorrow. Return to ER if condition worsens in any way. Referrals: Telma Aparicio DO [Primary Care Provider] - 1-2 days Grupo Bingham MD [STAFF PHYSICIAN] - 1-2 days
[2019-02-20 15:23] VITALS: BP 128/70; TEMP 97.9
== END 2019-02-20 15:22 | disposition home or self-care (01) ==
LOC: EC 12:27
DX: R10.9 Unspecified abdominal pain (principal); R10.0 Acute abdomen; R11.0 Nausea; I10 Essential (primary) hypertension; Z87.891 Personal history of nicotine dependence; Z79.899 Other long term (current) drug therapy; Z87.442 Personal history of urinary calculi; Z90.49 Acquired absence of other specified parts of digestive tract; Z98.890 Other specified postprocedural states; Z96.0 Presence of urogenital implants; Z53.29 Procedure and treatment not carried out because of patient's decision for other reasons
CPT/HCPCS: 36415; 80053; 83605; 83690; 85025; 81003; 81025; 74018; 99284; 96374; 96375 ×2; 96361; J2270; J2405; J1885

== ENCOUNTER 2019-08-25 08:22 | Day surgery (SDC) | payer BC ==
[2019-08-23 08:59] VITALS: BMI 29.7
--- NOTE | 2019-08-23 17:40 | P.HPOB ---
History of Present Illness H&P Date: 08/23/19 Chief Complaint: Dysfunctional uterine bleeding Toni is a 44-year-old female who has persistent heavy cycles every month. Over the last 6-9 months they've become increasingly heavy with large clots. She is scheduled for a D&C with hysteroscopy, NovaSure ablation and lap scopic tubal occlusion with Filshie clips due to NovaSure not being a control. Risks/benefits/alternatives to this procedure were discussed with the patient in detail and all questions were answered for her prior to proceeding to the operating room. Risks did include but were not limited to bleeding and infection and she'll bladder, bowel, vascular injuries, nerve damage, ureteral injuries. Past Medical History Past Medical History: Hypertension Additional Past Medical History / Comment(s): kidney stones. HEAVY MENSES WITH CRAMPING History of Any Multi-Drug Resistant Organisms: None Reported Past Surgical History: Section, Cholecystectomy Additional Past Surgical History / Comment(s): laser removal of kidney stones, stents placed in bilateral kidneys OUT NOW, Past Anesthesia/Blood Transfusion Reactions: No Reported Reaction Smoking Status: Former smoker - Past Family History Mother Family Medical History: No Reported History Medications and Allergies Home Medications Medication Instructions Recorded Confirmed Type Lisinopril [Zestril] 10 mg PO HS 08/20/18 08/23/19 History Allergies Allergy/AdvReac Type Severity Reaction Status Date / Time No Known Allergies Allergy Verified 08/23/19 08:52 Exam Osteopathic Statement: *. No significant issues noted on an osteopathic structural exam other than those noted in the History and Physical/Consult. Intake and Output 08/23/19 08/23/19 08/23/19 06:59 14:59 22:59 Other: Weight 86.183 kg - OBG Physical Exam Breast: both: normal (no masses) Abdomen: bowel sounds normal, no diffuse tenderness, no bruit present, no guarding noted, no hepatomegaly, no splenomegaly, no mass Vulva: both: normal Vagina: normal moisture, no discharge Cervix: no lesion, no discharge Uterus: normal size, normal contour Adnexa: both: normal Anus/Rectum: normal perianal skin, no rectal mass, no hemorrhoids, heme negative
[~2019-08-25 08:22] MED LIST: DEXAMETHASONE SOD PHOSPHATE 10 MG/ML 1 ML VIAL IV ONE; LACTATED RINGERS 1,000 ML IV SCH; LIDOCAINE 1% 20 ML VIAL (10MG/ML) FOR IV START INTRADERMA PRN; MIDAZOLAM 2 MG/2 ML VIAL IV PRN; ONDANSETRON 4 MG/2 ML VIAL IVP ONE; Pre Op ABX Message 1 EACH MISC MISCELLANE ONE; SCOPOLAMINE 1.5MG/72HR PATCH TRANSDERM ONE
[2019-08-25 08:51] VITALS: TEMP 98
[2019-08-25] MEDS ORDERED: fentaNYL (PF) 50 MCG/ML 2 ML AMP ONE (09:43)
[2019-08-25] MEDS ORDERED: MIDAZOLAM 2 MG/2 ML VIAL ONE (09:43)
[2019-08-25] MEDS ORDERED: ROCURONIUM BROMIDE 10 MG/ML 10 ML VIAL IV ONE (09:43)
[2019-08-25] MEDS ORDERED: GLYCOPYRROLATE 0.2 MG/ML 2 ML VIAL ONE (09:43)
[2019-08-25] MEDS ORDERED: SUCCINYLCHOLINE CHLORIDE 100 MG/5 ML SYR IV ONE (09:43)
[2019-08-25] MEDS ORDERED: NEOSTIGMINE 1 MG/ML 10 ML VIAL ONE (09:43)
[2019-08-25] MEDS ORDERED: PROPOFOL 10 MG/ML 20 ML VIAL IV ONE (09:43)
[2019-08-25] MEDS ORDERED: LIDOCAINE 1% INJ 10MG/ML (20 ML MDV) ONE (09:43)
[2019-08-25] MEDS ORDERED: BUPIVACAINE (PF) 0.25% 30 ML VIAL SQ ONE ×2 (10:07)
--- NOTE | 2019-08-25 10:37 | P.OP ---
Date of Procedure: 08/25/19 Preoperative Diagnosis: Menorrhagia and family planning Postoperative Diagnosis: Same Procedure(s) Performed: D&C with hysteroscopy and NovaSure with laparoscopic tubal occlusion Filshie clips Anesthesia: VENKATA Surgeon: Jimbo Lee Estimated Blood Loss (ml): 10 IV fluids (ml): 300 Urine output (ml): 100 Pathology: other (Uterine curettings) Condition: stable Disposition: same day Operative Findings: Pathology pending incidental finding of some scarring of the omentum to the left abdominal sidewall Description of Procedure: Patient was taken to the operating suite where a general anesthetic was found be adequate. She was prepped and draped in the normal sterile fashion and placed in dorsal lithotomy position. Initially a speculum was inserted into the vagina and the anterior lip of the cervix identified and grasped with an Allis clamp. Cervix was then dilated and sounded to 10 cm. Uterine manipulator was then inserted without difficulty and other instruments were then removed. Red rubber catheter was then used to drain the bladder of urine. Gloves were changed and attention was turned to abdominal portion of the procedure where 2 mL of quarter percent Marcaine was injected periumbilically. Through this injected anesthetic a 5 mm skin incision was made and through this incision, under direct visualization with an optical trocar and sleeve, the camera was inserted. Once peritoneal placement was assured gas was allowed to fully insufflate the abdomen and patient was then placed in steep Trendelenburg position. A second skin incision was made 3 cm above the pubic symphysis in the midline and this port was also inserted under direct visualization. Observations pelvis were noted. Uterus was elevated and then the right fallopian tube than the left fallopian tube had a Filshie clip applied 2 cm from uterine cornu. No bleeding is noted in the in the mesosalpinx therefore incidents removed and gas allowed to expel from the abdomen. 5 deep breaths were provided during this process. Once accomplished 4-0 Vicryl was then used to close incision subcuticularly. Attention was then turned to the vagina again and manipulator was removed Allis clamp again used grasp the anterior lip of the cervix minimal descent of the uterus is noted. Once this accomplished camera was inserted minimal visualization is noted due to proliferative endometrium. Camera was then removed and sharp curettings of endometrium were obtained. All tissues collected placed on Telfa sent to pathology for evaluation. Once this was completed, NovaSure system was inserted with length of 4.5 with 3.7 it was tested and once past states patency test it was enabled and activated. The burn last 87 seconds area at conclusion of the burn, camera was reinserted with good burn noted. All incidents were then removed. Sponge, lap, needle counts were all correct 2. Patient was then taken to the recovery room in stable and satisfactory condition. Plan - Discharge Summary Discharge Rx Participant: Yes New Discharge Prescriptions: New Ibuprofen [Motrin] 600 mg PO Q6HR PRN #30 tab PRN Reason: Pain HYDROcodone/APAP 5-325MG [[place] 5-325] 1 tab PO Q4HR PRN #30 tab PRN Reason: Pain No Action Lisinopril [Zestril] 10 mg PO HS Discharge Medication List Lisinopril [Zestril] 10 mg PO HS 08/20/18 [History] HYDROcodone/APAP 5-325MG [[place] 5-325] 1 tab PO Q4HR PRN #30 tab 08/25/19 [Rx] Ibuprofen [Motrin] 600 mg PO Q6HR PRN #30 tab 08/25/19 [Rx] Follow up Appointment(s)/Referral(s): Jimbo Lee DO [Doctor of Osteopathic Medicine] - 2 Weeks Activity/Diet/Wound Care/Special Instructions: No heavy lifting, limit stairs and driving, and pelvic rest. If any high temperatures, heavy bleeding, or severe pain call my office Discharge Disposition: HOME SELF-CARE
[2019-08-25] MEDS: HYDROmorphone 0.5 MG/0.5 ML SYRINGE IVP PRN ×4 (10:45→11:15)
[2019-08-25] MEDS ORDERED: LACTATED RINGERS 1,000 ML IV ONE ×2 (11:08)
[2019-08-25 11:13] VITALS: RESP 16
[2019-08-25] MEDS ORDERED: KETOROLAC 30 MG/ML 1 ML VIAL IVP ONE (11:15)
[2019-08-25] MEDS ORDERED: HYDROcodone/APAP 5-325MG 1 EACH TAB PO ONE (11:54)
[2019-08-25 12:23] VITALS: BP 121/74; PULSE 65
== END 2019-08-25 12:54 | disposition home or self-care (01) ==
LOC: OR 08:22
PROVIDERS: ATTEND Obstetrics & Gynecology
DX: Z30.2 Encounter for sterilization (principal); C54.1 Malignant neoplasm of endometrium; I10 Essential (primary) hypertension; Z87.442 Personal history of urinary calculi; Z90.49 Acquired absence of other specified parts of digestive tract; Z98.891 History of uterine scar from previous surgery; Z98.890 Other specified postprocedural states; Z87.891 Personal history of nicotine dependence; Z79.899 Other long term (current) drug therapy
CPT/HCPCS: 81025; 88305; 58563; 58671; J2250; J1100; J2710; J2405; J2001; J3010; J1885; J0330; J2704; J1170

== ENCOUNTER → 2019-09-06 | Outpatient (CLI) | payer BC ==
--- NOTE | 2019-09-07 11:59 | MM ---
Reason for exam: screening (asymptomatic). Last mammogram was performed 6 years and 10 months ago. History: Patient has history of other cancer at age 44. Physical Findings: A clinical breast exam by your physician is recommended on an annual basis and results should be correlated with mammographic findings. MG 3D Screening Mammo W/Cad Bilateral CC and MLO view(s) were taken. Prior study comparison: November 18, 2012, CAD bilateral diagnostic mammogram. There are scattered fibroglandular densities. No suspicious abnormality. No significant changes when compared with prior studies. ASSESSMENT: Negative, BI-RAD 1 RECOMMENDATION: Routine screening mammogram of both breasts in 1 year.
== END | disposition home or self-care (01) ==
LOC: RADMAMWWP 07:28
PROVIDERS: ATTEND Obstetrics & Gynecology
DX: Z12.31 Encounter for screening mammogram for malignant neoplasm of breast (principal)
CPT/HCPCS: 77063; 77067

== ENCOUNTER 2019-11-29 17:43 | Emergency (ER) | payer BC ==
[2019-11-29] MEDS ORDERED: ONDANSETRON 4 MG/2 ML VIAL IVP STA (18:07)
[2019-11-29] MEDS ORDERED: HYDROmorphone 0.5 MG/0.5 ML SYRINGE IVP STA ×2 (18:07→18:52)
[2019-11-29] MEDS ORDERED: KETOROLAC 30 MG/ML 1 ML VIAL IVP STA (18:07)
[2019-11-29] MEDS ORDERED: SODIUM CHLORIDE 0.9% 2,000 ML IV STA (18:07)
--- NOTE | 2019-11-29 18:09 | ED ---
Abdominal Pain HPI - General Chief Complaint: Abdominal Pain Stated Complaint: kidney stones Time Seen by Provider: 11/29/19 18:00 Source: patient, RN notes reviewed Mode of arrival: ambulatory Limitations: no limitations - History of Present Illness Initial Comments: This a 44-year-old female presents emergency Department chief complaint of right flank pain. Patient states she was seen by her PCP over a week ago for possible urinary tract infection. She was placed on ciprofloxacin if she had some noted white and red cells in her urinalysis. Patient states that symptoms seemed to get better but states that the pain returned last one to days and she passed multiple stones. Patient has a long history of kidney stones she did contact her urologist Dr. Bingham but had no phone call back. Patient denies any fevers or chills no chest pain or shortness breath. She has had lithotripsy, stents placed in the past. - Related Data Home Medications Medication Instructions Recorded Confirmed Lisinopril [Zestril] 10 mg PO HS 08/20/18 08/25/19 Previous Rx's Medication Instructions Recorded HYDROcodone/APAP 5-325MG [[place] 1 tab PO Q4HR PRN #30 tab 08/25/19 5-325] Ibuprofen [Motrin] 600 mg PO Q6HR PRN #30 tab 08/25/19 Hydrocodone/Acetaminophen [[place] 1 tab PO Q6HR PRN #12 tab 11/29/19 5-325] Ketorolac [Toradol] 10 mg PO Q8HR #15 tab 11/29/19 Ondansetron Odt [Zofran Odt] 4 mg PO Q8HR PRN #14 tab 11/29/19 Allergies Allergy/AdvReac Type Severity Reaction Status Date / Time No Known Allergies Allergy Verified 11/29/19 17:47 Review of Systems ROS Statement: Those systems with pertinent positive or pertinent negative responses have been documented in the HPI. ROS Other: All systems not noted in ROS Statement are negative. Past Medical History Past Medical History: Hypertension Additional Past Medical History / Comment(s): kidney stones. HEAVY MENSES WITH CRAMPING History of Any Multi-Drug Resistant Organisms: None Reported Past Surgical History: Section, Cholecystectomy, Hysterectomy Additional Past Surgical History / Comment(s): laser removal of kidney stones, stents placed in bilateral kidneys OUT NOW, Past Anesthesia/Blood Transfusion Reactions: No Reported Reaction Past Psychological History: No Psychological Hx Reported Smoking Status: Former smoker Past Alcohol Use History: None Reported Past Drug Use History: None Reported - Past Family History Mother Family Medical History: No Reported History General Exam Limitations: no limitations General appearance: alert, in no apparent distress Head exam: Present: atraumatic, normocephalic, normal inspection Eye exam: Present: normal appearance, PERRL, EOMI. Absent: scleral icterus, conjunctival injection, periorbital swelling Neck exam: Present: normal inspection, full ROM. Absent: tenderness, meningismus, lymphadenopathy Respiratory exam: Present: normal lung sounds bilaterally. Absent: respiratory distress, wheezes, rales, rhonchi, stridor Cardiovascular Exam: Present: regular rate, normal rhythm, normal heart sounds. Absent: systolic murmur, diastolic murmur, rubs, gallop, clicks GI/Abdominal exam: Present: soft, tenderness (Minimal right-sided), normal bowel sounds. Absent: distended, guarding, rebound, rigid Back exam: Present: CVA tenderness (R). Absent: CVA tenderness (L) Neurological exam: Present: alert, oriented X3, CN II-XII intact Skin exam: Present: warm, dry, intact, normal color. Absent: rash Course Vital Signs 11/29/19 17:43 Temperature 98.4 F Pulse Rate 100 Respiratory 22 Rate Blood Pressure 148/93 O2 Sat by Pulse 99 Oximetry - Reevaluation(s) Reevaluation #1: 11/29/19 18:56 updated on results Medical Decision Making - Medical Decision Making 44-year-old female presented for right flank pain. Patient has a history kidney stone. Patient symptoms are consistent. There are no other acute findings. Patient pain is improved will be discharged with pain medication, antiemetics with follow-up with her urologist. - Lab Data Result diagrams: 11/29/19 18:20 11/29/19 18:20 Lab Results 11/29/19 11/29/19 11/29/19 Range/Units 18:20 18:20 18:25 WBC 10.4 (3.8-10.6) k/uL RBC 5.10 (3.80-5.40) m/uL Hgb 13.4 (11.4-16.0) gm/dL Hct 42.8 (34.0-46.0) % MCV 84.0 (80.0-100.0) fL MCH 26.3 (25.0-35.0) pg MCHC 31.3 (31.0-37.0) g/dL RDW 14.0 (11.5-15.5) % Plt Count 381 (150-450) k/uL Neutrophils % 67 % Lymphocytes % 21 % Monocytes % 6 % Eosinophils % 2 % Basophils % 1 % Neutrophils # 7.0 (1.3-7.7) k/uL Lymphocytes # 2.2 (1.0-4.8) k/uL Monocytes # 0.7 (0-1.0) k/uL Eosinophils # 0.2 (0-0.7) k/uL Basophils # 0.1 (0-0.2) k/uL Sodium 138 (137-145) mmol/L Potassium 4.2 (3.5-5.1) mmol/L Chloride 107 (98-107) mmol/L Carbon Dioxide 22 (22-30) mmol/L Anion Gap 9 mmol/L BUN 13 (7-17) mg/dL Creatinine 0.74 (0.52-1.04) mg/dL Est GFR (CKD-EPI)AfAm >90 (>60 ml/min/1.73 sqM) Est GFR (CKD-EPI)NonAf >90 (>60 ml/min/1.73 sqM) Glucose 118 H (74-99) mg/dL Calcium 9.3 (8.4-10.2) mg/dL Total Bilirubin 0.2 (0.2-1.3) mg/dL AST 18 (14-36) U/L ALT 17 (4-34) U/L Alkaline Phosphatase 86 (38-126) U/L Total Protein 7.7 (6.3-8.2) g/dL Albumin 4.4 (3.5-5.0) g/dL Lipase 280 (23-300) U/L Urine Color Light Yellow Urine Appearance Cloudy H (Clear) Urine pH 5.5 (5.0-8.0) Ur Specific [place] 1.010 (1.001-1.035) Urine Protein Negative (Negative) Urine Glucose (UA) Negative (Negative) Urine Ketones Negative (Negative) Urine Blood Trace H (Negative) Urine Nitrite Negative (Negative) Urine Bilirubin Negative (Negative) Urine Urobilinogen <2.0 (<2.0) mg/dL Ur Leukocyte Esterase Small H (Negative) Urine RBC 2 (0-5) /hpf Urine WBC 4 (0-5) /hpf Ur Squamous Epith Cells 9 H (0-4) /hpf Urine Mucus Rare H (None) /hpf Disposition Clinical Impression: Right flank pain, Nephrolithiasis Disposition: HOME SELF-CARE Condition: Stable Instructions (If sedation given, give patient instructions): Kidney Stones (ED) Additional Instructions: Please return to the Emergency Department if symptoms worsen or any other concerns. Prescriptions: Hydrocodone/Acetaminophen [[place] 5-325] 1 tab PO Q6HR PRN #12 tab PRN Reason: Pain Ketorolac [Toradol] 10 mg PO Q8HR #15 tab Ondansetron Odt [Zofran Odt] 4 mg PO Q8HR PRN #14 tab PRN Reason: Nausea Is patient prescribed a controlled substance at d/c from ED?: Yes When asked, does pt state using other controlled substances?: No If prescribed controlled substance>3 days was MAPS reviewed?: Prescribed <3 Days If opioid is for acute pain is fill amount 7 days or less?: Yes If Rx opioid, was Start Talking consent form obtained?: Yes Referrals: Telma Aparicio DO [Primary Care Provider] - 1-2 days Grupo Bingham MD [STAFF PHYSICIAN] - 1-2 days Time of Disposition: 19:07
[2019-11-29 18:30] LABS: Basophils # (A) 0.1 k/uL (0-0.2); Basophils % (A) 1 %; Eosinophils # (A) 0.2 k/uL (0-0.7); Eosinophils % (A) 2 %; HCT 42.8 % (34.0-46.0); HGB 13.4 gm/dL (11.4-16.0); Lymphocytes # (A) 2.2 k/uL (1.0-4.8); Lymphocytes % (A) 21 %; MCH 26.3 pg (25.0-35.0); MCHC 31.3 g/dL (31.0-37.0); Monocytes # (A) 0.7 k/uL (0-1.0); Monocytes % (A) 6 %; Neutrophils % (A) 67 %; Platelet Count 381 k/uL (150-450); WBC 10.4 k/uL (3.8-10.6)
[2019-11-29 18:38] LABS: Appearance,Urine Cloudy (Clear); Bilirubin,Urine Negative (Negative); Blood,Urine Trace (Negative); Color,Urine Light Yellow; Glucose,Urine (UA) Negative (Negative); Ketones,Urine Negative (Negative); Leukocyte Esterase,Urine Small (Negative); Mucus,Urine Rare /hpf; Nitrite,Urine Negative (Negative); PH, Urine 5.5 (5.0-8.0); Protein,Urine Negative (Negative); RBC,Urine 2 /hpf (0-5); Squamous Epithelial Cell,Urine 9 /hpf (0-4); Urobilinogen,Urine <2.0 mg/dL (<2.0); WBC,Urine 4 /hpf (0-5)
[2019-11-29 18:42] LABS: ALT 17 U/L (4-34); AST 18 U/L (14-36); African American GFR (CKD) >90 (>60 ml/min/1.73 sqM); Albumin 4.4 g/dL (3.5-5.0); Alkaline Phosphatase 86 U/L (38-126); Anion Gap 9 mmol/L; Blood Urea Nitrogen 13 mg/dL (7-17); Calcium 9.3 mg/dL (8.4-10.2); Carbon Dioxide 22 mmol/L (22-30); Chloride 107 mmol/L (98-107); Glucose 118 mg/dL (74-99); Non-African American GFR(CKD) >90 (>60 ml/min/1.73 sqM); Potassium 4.2 mmol/L (3.5-5.1); Sodium 138 mmol/L (137-145); Total Bilirubin 0.2 mg/dL (0.2-1.3); Total Protein 7.7 g/dL (6.3-8.2)
--- NOTE | 2019-11-29 18:55 | XR ---
EXAMINATION TYPE: XR KUB DATE OF EXAM: 11/29/2019 6:36 PM CLINICAL HISTORY: Right flank pain. TECHNIQUE: Two Upright KUB images of the abdomen are obtained. COMPARISON: Abdominal x-ray February 20, 2019. CT abdomen and pelvis August 31, 2018. FINDINGS: Gas is seen in nondistended stomach some possibility of small bowel gas. Scattered gas is s een in non-distended colon along the periphery. Known bilateral small renal calculi on CT less well s een on plain films. Cholecystectomy clips redemonstrated. Lung bases are clear. Visualized osseous st ructures are intact. IMPRESSION: Overall nonspecific but strongly favor nonobstructive bowel gas pattern. Tiny right renal calculi on CT too small to visualize on plain films.
[2019-11-29 19:25] VITALS: BP 138/96; PULSE 97; RESP 18; TEMP 98.9
== END 2019-11-29 19:48 | disposition home or self-care (01) ==
LOC: EC 17:43
DX: N20.0 Calculus of kidney (principal); I10 Essential (primary) hypertension; Z79.899 Other long term (current) drug therapy; Z90.49 Acquired absence of other specified parts of digestive tract; Z87.891 Personal history of nicotine dependence
CPT/HCPCS: 36415; 80053; 83690; 85025; 81001; 74018; 99284; 96374; 96375 ×2; 96376; 96361 ×2; J2405; J1885; J1170

== ENCOUNTER → 2020-03-08 | Outpatient (CLI) | payer BC ==
--- NOTE | 2020-03-09 16:58 | XR ---
EXAMINATION TYPE: XR KUB DATE OF EXAM: 03/08/2020 5:34 PM CLINICAL HISTORY: History of kidney stone TECHNIQUE: Supine images of the abdomen and pelvis were obtained COMPARISON: KUB 11/21/2019. CT abdomen pelvis 08/31/2018. FINDINGS: Nonspecific bowel gas pattern. Right upper quadrant surgical clips. Many punctate calculi o verlie the renal shadows, largest measuring 5 mm over the left renal lower pole. There is no viscerom egaly. The osseous structures are intact. IMPRESSION: 1. Many punctate calculi overlie the renal shadows, largest measuring 5 mm over the left renal lower pole. 2. Nonspecific bowel gas pattern.
== END | disposition home or self-care (01) ==
LOC: RADXRMAIN 16:39
PROVIDERS: ATTEND Urology
DX: N20.0 Calculus of kidney (principal)
CPT/HCPCS: 74018

== ENCOUNTER 2020-10-29 10:21 | Emergency (ER) | payer BC ==
[2020-10-29 10:52] VITALS: RESP 18
--- NOTE | 2020-10-29 11:08 | ED ---
General Adult HPI - General Chief complaint: Abdominal Pain Stated complaint: Side Pain,Kidney stones Source: patient, RN notes reviewed Mode of arrival: ambulatory Limitations: no limitations - History of Present Illness Initial comments: Patient presents emergency Department with right-sided flank pain, has a history of kidney stones states that this feels like the last time she passed several stones. Patient states that she's been trying to increase oral fluid intake and taking at home pain medications with no relief. She notes that the pain is pretty severe. She came to the ER to get evaluated to make sure there was no infection. She denied any chest pain first breath headache nausea vomiting diarrhea constipation fever fatigue chills. - Related Data Home Medications Medication Instructions Recorded Confirmed lisinopriL [Zestril] 10 mg PO HS 08/20/18 08/25/19 Previous Rx's Medication Instructions Recorded HYDROcodone/APAP 5-325MG [[place] 1 tab PO Q4HR PRN #30 tab 08/25/19 5-325] Ibuprofen [Motrin] 600 mg PO Q6HR PRN #30 tab 08/25/19 Hydrocodone/Acetaminophen [[place] 1 tab PO Q6HR PRN #12 tab 11/29/19 5-325] Ketorolac [Toradol] 10 mg PO Q8HR #15 tab 11/29/19 Ondansetron Odt [Zofran Odt] 4 mg PO Q8HR PRN #14 tab 11/29/19 Allergies Allergy/AdvReac Type Severity Reaction Status Date / Time No Known Allergies Allergy Verified 10/29/20 10:52 Review of Systems ROS Statement: Those systems with pertinent positive or pertinent negative responses have been documented in the HPI. ROS Other: All systems not noted in ROS Statement are negative. Past Medical History Past Medical History: Hypertension Additional Past Medical History / Comment(s): kidney stones History of Any Multi-Drug Resistant Organisms: None Reported Past Surgical History: Section, Cholecystectomy, Hysterectomy Additional Past Surgical History / Comment(s): laser removal of kidney stones, stents placed in bilateral kidneys OUT NOW, Past Anesthesia/Blood Transfusion Reactions: No Reported Reaction Past Psychological History: No Psychological Hx Reported Smoking Status: Never smoker Past Alcohol Use History: None Reported Past Drug Use History: None Reported - Past Family History Mother Family Medical History: No Reported History General Exam Limitations: no limitations General appearance: alert, in no apparent distress, obese Neck exam: Absent: tenderness, meningismus, lymphadenopathy Respiratory exam: Present: normal lung sounds bilaterally. Absent: respiratory distress, wheezes, rales, rhonchi, stridor Cardiovascular Exam: Present: regular rate, normal rhythm, normal heart sounds. Absent: systolic murmur, diastolic murmur, rubs, gallop, clicks GI/Abdominal exam: Present: soft, normal bowel sounds. Absent: distended, tenderness, guarding, rebound, rigid Back exam: Present: normal inspection, CVA tenderness (R) Neurological exam: Present: alert, oriented X3, CN II-XII intact Psychiatric exam: Present: normal affect, normal mood Skin exam: Present: warm, dry, intact, normal color. Absent: rash Course Vital Signs 10/29/20 10/29/20 10:49 13:54 Temperature 98.6 F Pulse Rate 93 92 Respiratory 18 18 Rate Blood Pressure 150/100 151/83 O2 Sat by Pulse 97 97 Oximetry Medical Decision Making - Medical Decision Making 45-year-old female complaining of right flank pain with a history of kidney stones. He notes that this feels similar to her last kidney stone event. Basic labs, KUB, 1 L normal saline ordered 15 mg of Toradol ordered, 4 mg morphine ordered. Labs unremarkable, UA shows some red blood cells or blood cells in the urine which is to be expected due to kidney stones. Patient does have several bacteria area 1 g of Rocephin ordered to cover any possible UTI. Case discussed with Dr. Ramirez, patient can discharge home with follow-up to primary care. - Lab Data Result diagrams: 10/29/20 11:12 10/29/20 11:12 Lab Results 10/29/20 10/29/20 10/29/20 Range/Units 11:12 11:12 13:17 WBC 6.8 (3.8-10.6) k/uL RBC 5.30 (3.80-5.40) m/uL Hgb 15.1 (11.4-16.0) gm/dL Hct 45.0 (34.0-46.0) % MCV 85.0 (80.0-100.0) fL MCH 28.5 (25.0-35.0) pg MCHC 33.5 (31.0-37.0) g/dL RDW 13.1 (11.5-15.5) % Plt Count 399 (150-450) k/uL MPV 6.9 Neutrophils % 64 % Lymphocytes % 27 % Monocytes % 5 % Eosinophils % 2 % Basophils % 1 % Neutrophils # 4.4 (1.3-7.7) k/uL Lymphocytes # 1.8 (1.0-4.8) k/uL Monocytes # 0.3 (0-1.0) k/uL Eosinophils # 0.1 (0-0.7) k/uL Basophils # 0.1 (0-0.2) k/uL Sodium 139 (137-145) mmol/L Potassium 4.2 (3.5-5.1) mmol/L Chloride 107 (98-107) mmol/L Carbon Dioxide 26 (22-30) mmol/L Anion Gap 6 mmol/L BUN 14 (7-17) mg/dL Creatinine 0.78 (0.52-1.04) mg/dL Est GFR (CKD-EPI)AfAm >90 (>60 ml/min/1.73 sqM) Est GFR (CKD-EPI)NonAf >90 (>60 ml/min/1.73 sqM) Glucose 90 (74-99) mg/dL Calcium 9.3 (8.4-10.2) mg/dL Total Bilirubin 0.4 (0.2-1.3) mg/dL AST 23 (14-36) U/L ALT 23 (4-34) U/L Alkaline Phosphatase 91 (38-126) U/L Total Protein 7.6 (6.3-8.2) g/dL Albumin 4.4 (3.5-5.0) g/dL Urine Color Yellow Urine Appearance Cloudy H (Clear) Urine pH 7.0 (5.0-8.0) Ur Specific [place] 1.019 (1.001-1.035) Urine Protein Trace H (Negative) Urine Glucose (UA) Negative (Negative) Urine Ketones Trace H (Negative) Urine Blood Negative (Negative) Urine Nitrite Negative (Negative) Urine Bilirubin Negative (Negative) Urine Urobilinogen <2.0 (<2.0) mg/dL Ur Leukocyte Esterase Moderate H (Negative) Urine RBC 7 H (0-5) /hpf Urine WBC 9 H (0-5) /hpf Ur Squamous Epith Cells 39 H (0-4) /hpf Urine Bacteria Occasional H (None) /hpf Urine Mucus Many H (None) /hpf Urine Yeast (Budding) Rare H (None) /hpf - Radiology Data Radiology results: report reviewed, image reviewed Left-sided nephrolithiasis measuring up to 4 mm. Nonobstructive bowel gas pattern Disposition Clinical Impression: Nephrolithiasis Disposition: HOME SELF-CARE Condition: Stable Instructions (If sedation given, give patient instructions): Kidney Stones (ED) Additional Instructions: Please return to the Emergency Department if symptoms worsen or any other concerns. Continue to increase oral fluid intake, take pain medication for symptomatic control. Follow-up primary care in 1-3 days. Obtain a urology consult if needed. Is patient prescribed a controlled substance at d/c from ED?: Yes When asked, does pt state using other controlled substances?: No If prescribed controlled substance>3 days was MAPS reviewed?: Prescribed <3 Days If opioid is for acute pain is fill amount 7 days or less?: Yes Referrals: Telma Aparicio DO [Primary Care Provider] - 1-2 days Time of Disposition: 14:16
--- NOTE | 2020-10-29 11:41 | XR ---
EXAMINATION TYPE: XR KUB DATE OF EXAM: 10/29/2020 Comparison: 03/08/2020 Clinical History: 45-year-old female right flank pain, abdominal pain Findings: Cholecystectomy clips. Nonobstructive bowel gas pattern. No evidence for free intraperitoneal air. No air-fluid levels or dilated small bowel. Mild stool within the right side of the abdomen. Air within the rectum. Faint left-sided renal calculi are demonstrated measuring up to 4 mm. No definite suspic ious right-sided calcification seen. Left-sided pelvic phleboliths. Impression: Left-sided nephrolithiasis measuring up to 4 mm. Nonobstructive bowel gas pattern. Prior cholecystect sky.
[2020-10-29 11:50] LABS: Basophils # (A) 0.1 k/uL (0-0.2); Basophils % (A) 1 %; Eosinophils # (A) 0.1 k/uL (0-0.7); Eosinophils % (A) 2 %; HGB 15.1 gm/dL (11.4-16.0); Lymphocytes # (A) 1.8 k/uL (1.0-4.8); Lymphocytes % (A) 27 %; MCH 28.5 pg (25.0-35.0); MCHC 33.5 g/dL (31.0-37.0); Mean Platelet Volume 6.9; Monocytes # (A) 0.3 k/uL (0-1.0); Monocytes % (A) 5 %; Neutrophils # (A) 4.4 k/uL (1.3-7.7); Neutrophils % (A) 64 %; Platelet Count 399 k/uL (150-450); RDW 13.1 % (11.5-15.5); WBC 6.8 k/uL (3.8-10.6)
[2020-10-29 11:57] LABS: ALT 23 U/L (4-34); AST 23 U/L (14-36); African American GFR (CKD) >90 (>60 ml/min/1.73 sqM); Albumin 4.4 g/dL (3.5-5.0); Alkaline Phosphatase 91 U/L (38-126); Anion Gap 6 mmol/L; Blood Urea Nitrogen 14 mg/dL (7-17); Calcium 9.3 mg/dL (8.4-10.2); Carbon Dioxide 26 mmol/L (22-30); Chloride 107 mmol/L (98-107); Glucose 90 mg/dL (74-99); Non-African American GFR(CKD) >90 (>60 ml/min/1.73 sqM); Potassium 4.2 mmol/L (3.5-5.1); Sodium 139 mmol/L (137-145); Total Bilirubin 0.4 mg/dL (0.2-1.3); Total Protein 7.6 g/dL (6.3-8.2)
[2020-10-29] MEDS ORDERED: KETOROLAC 15 MG/ML 1 ML VIAL IVP STA (13:11)
[2020-10-29] MEDS ORDERED: SODIUM CHLORIDE 0.9% 1,000 ML IV STA (13:12)
[2020-10-29] MEDS ORDERED: MORPHINE SULFATE 4 MG/ML SYRINGE IVP STA (13:18)
[2020-10-29 13:40] LABS: Appearance,Urine Cloudy (Clear); Bacteria,Urine Occasional /hpf; Bilirubin,Urine Negative (Negative); Blood,Urine Negative (Negative); Budding Yeast,Urine Rare /hpf; Color,Urine Yellow; Glucose,Urine (UA) Negative (Negative); Ketones,Urine Trace (Negative); Leukocyte Esterase,Urine Moderate (Negative); Mucus,Urine Many /hpf; Nitrite,Urine Negative (Negative); Protein,Urine Trace (Negative); RBC,Urine 7 /hpf (0-5); Specific Gravity,Urine 1.019 (1.001-1.035); Squamous Epithelial Cell,Urine 39 /hpf (0-4); Urobilinogen,Urine <2.0 mg/dL (<2.0); WBC,Urine 9 /hpf (0-5)
[2020-10-29] MEDS ORDERED: ACET/COD 300 MG/30 MG STARTER PACK 6 TAB BTL PO STA (14:15)
[2020-10-29 14:58] VITALS: BP 156/75; PULSE 78; TEMP 98.1
== END 2020-10-29 14:58 | disposition home or self-care (01) ==
LOC: EC 10:21
DX: N20.0 Calculus of kidney (principal); I10 Essential (primary) hypertension; Z79.1 Long term (current) use of non-steroidal anti-inflammatories (NSAID)
CPT/HCPCS: 99284; 96365; 96375; 36415; 80053; 85025; 81001; 74018; J2270; J0696; J1885

== ENCOUNTER → 2020-11-01 | Outpatient (CLI) | payer BC ==
--- NOTE | 2020-11-02 08:44 | CT ---
EXAMINATION TYPE: CT abdomen pelvis wo con DATE OF EXAM: 11/01/2020 COMPARISON: 08/31/2018 INDICATION: RT side abdomen pain, hx renal stones. DLP: 1098.90 mGycm, Automated exposure control for dose reduction was used. CONTRAST: 0 mL of Isovue 300. Study performed without Oral Contrast TECHNIQUE: Axial images were obtained from above the diaphragm to the pubic rami in the axial plane a t 5 mm thick sections. Reconstructed images are reviewed on the computer in the coronal plane. FINDINGS: Limited CT sections are obtained the lung bases. The lung bases are clear. CT ABDOMEN: Liver: Normal Spleen: Normal Pancreas: Normal Adrenal glands: The adrenal glands are normal. Gallbladder: Surgically absent Kidneys: Multiple punctate calcifications are at the upper pole left kidney. Bilateral mid pole punct ate calcifications measuring up to 0.2 cm within the mid poles bilaterally. There is a larger nonobst ructing renal stones in the inferior poles of bilateral kidneys measuring 0.4 cm on the right and 0.3 cm on the left. There is calcification at the inferior pole left kidney measuring 0.5 cm these are a ll nonobstructing renal stones. No hydronephrosis is present. 1.4 and 2.7 cm cysts in the inferior left kidney. A larger cyst measures 7 Hounsfield units. The smaller cyst measures 0.6. There is a 2.5 cm cyst in the upper anterior pole right kidney measuring 1 Hounsfield unit Delayed images were obt ained through the kidneys, which remain unremarkable. Aorta: Minimal vascular calcification is within the aorta. Inferior vena cava: Normal. CT PELVIS: Bowel loops without oral contrast appear unremarkable. Appendix: Normal as visualized. Urinary bladder: Normal. Genitourinary structures: There may be a 1.3 cm cyst in the right ovary. The uterus appears absent. L eft ovary is not identified. Osseous structures: No suspicious lytic or sclerotic lesions. IMPRESSIONS: 1. Multiple bilateral nonobstructing renal stones. The largest measuring 0.5 cm inferior pole left k idney. 2. Bilateral simple appearing renal cysts. 3. 1.3 cm cyst right ovary
== END | disposition home or self-care (01) ==
LOC: RADCTMAIN 16:36
PROVIDERS: ATTEND Urology
DX: N20.0 Calculus of kidney (principal); N28.1 Cyst of kidney, acquired; N83.201 Unspecified ovarian cyst, right side
CPT/HCPCS: 74176

== ENCOUNTER 2020-12-21 11:45 | Emergency (ER) | payer BC ==
[2020-12-21 11:55] VITALS: TEMP 97.9
[2020-12-21] MEDS ORDERED: HYDROmorphone 0.5 MG/0.5 ML SYRINGE IVP STA (12:16)
[2020-12-21] MEDS ORDERED: SODIUM CHLORIDE 0.9% 500 ML 500 ML IV STA (12:16)
[2020-12-21] MEDS ORDERED: ONDANSETRON 4 MG/2 ML VIAL IVP STA (12:16)
[2020-12-21] MEDS ORDERED: KETOROLAC 15 MG/ML 1 ML VIAL IVP STA (12:16)
[2020-12-21 12:55] LABS: Basophils # (A) 0.1 k/uL (0-0.2); Basophils % (A) 1 %; Eosinophils # (A) 0.2 k/uL (0-0.7); Eosinophils % (A) 2 %; HCT 43.7 % (34.0-46.0); HGB 13.8 gm/dL (11.4-16.0); Lymphocytes # (A) 2.1 k/uL (1.0-4.8); Lymphocytes % (A) 31 %; MCH 26.8 pg (25.0-35.0); MCHC 31.5 g/dL (31.0-37.0); Mean Platelet Volume 6.8; Monocytes # (A) 0.5 k/uL (0-1.0); Monocytes % (A) 8 %; Neutrophils # (A) 3.9 k/uL (1.3-7.7); Neutrophils % (A) 57 %; Platelet Count 333 k/uL (150-450); RBC 5.14 m/uL (3.80-5.40); RDW 13.6 % (11.5-15.5); WBC 6.9 k/uL (3.8-10.6)
--- NOTE | 2020-12-21 13:05 | XR ---
KUB HISTORY: Abdominal pain, history of renal stones Frontal KUB and 2 images correlated prior KUB 10/29/2020, CT 11/01/2020 There are probable phleboliths within the pelvis. Calculus is present in the left kidney lower pole l evel measuring approximately 4 mm. Overlying bowel gas may obscure additional calcifications. Surgica l clips are present right upper quadrant. Lung bases are normal. impression: Nephrolithiasis is noted on the left.
[2020-12-21 13:06] LABS: Appearance,Urine Clear (Clear); Bilirubin,Urine Negative (Negative); Blood,Urine Negative (Negative); Color,Urine Yellow; Glucose,Urine (UA) Negative (Negative); Ketones,Urine Negative (Negative); Leukocyte Esterase,Urine Negative (Negative); Nitrite,Urine Negative (Negative); Protein,Urine Negative (Negative); Specific Gravity,Urine 1.007 (1.001-1.035); Urobilinogen,Urine <2.0 mg/dL (<2.0)
[2020-12-21 13:12] LABS: ALT 23 U/L (4-34); AST 26 U/L (14-36); African American GFR (CKD) >90 (>60 ml/min/1.73 sqM); Albumin 4.3 g/dL (3.5-5.0); Alkaline Phosphatase 81 U/L (38-126); Amylase 60 U/L (30-110); Anion Gap 8 mmol/L; Blood Urea Nitrogen 13 mg/dL (7-17); Calcium 9.5 mg/dL (8.4-10.2); Carbon Dioxide 25 mmol/L (22-30); Chloride 108 mmol/L (98-107); Glucose 120 mg/dL (74-99); Lipase 238 U/L (23-300); Non-African American GFR(CKD) 81 (>60 ml/min/1.73 sqM); Potassium 4.2 mmol/L (3.5-5.1); Sodium 141 mmol/L (137-145); Total Bilirubin 0.3 mg/dL (0.2-1.3); Total Protein 7.1 g/dL (6.3-8.2)
--- NOTE | 2020-12-21 13:40 | ED ---
Abdominal Pain HPI - General Chief Complaint: Abdominal Pain Stated Complaint: Kidney Stone Time Seen by Provider: 12/21/20 12:01 Source: patient Mode of arrival: ambulatory Limitations: no limitations - History of Present Illness Initial Comments: 45-year-old female presenting to the emergency department today for chief complaint of right flank pain. Patient states she has had right flank pain and some associated nausea since yesterday evening. She states it feels identical to when she had kidney stones in the past. Patient states she for complete passes them patient has a chest pain short of breath. Deep inspiration she denies any diarrhea vomiting bloody or dark stools. Patient denies dysuria urgency frequency or obvious hematuria. Patient denies any fevers upon arrival patient appears well nontoxic no acute distress blood pressure is noted to be elevated - Related Data Home Medications Medication Instructions Recorded Confirmed Losartan [Cozaar] 50 mg PO HS 12/21/20 12/21/20 Phenazopyridine HCl 95 mg PO ONCE PRN 12/21/20 12/21/20 Sertraline [Zoloft] 100 mg PO HS 12/21/20 12/21/20 Previous Rx's Medication Instructions Recorded Ketorolac [Toradol] 10 mg PO Q8HR PRN 3 Days #9 tab 12/21/20 Allergies Allergy/AdvReac Type Severity Reaction Status Date / Time No Known Allergies Allergy Verified 12/21/20 12:59 Review of Systems ROS Statement: Those systems with pertinent positive or pertinent negative responses have been documented in the HPI. ROS Other: All systems not noted in ROS Statement are negative. Past Medical History Past Medical History: Hypertension Additional Past Medical History / Comment(s): kidney stones History of Any Multi-Drug Resistant Organisms: None Reported Past Surgical History: Section, Cholecystectomy, Hysterectomy Additional Past Surgical History / Comment(s): laser removal of kidney stones, stents placed in bilateral kidneys OUT NOW, Past Anesthesia/Blood Transfusion Reactions: No Reported Reaction Past Psychological History: No Psychological Hx Reported Smoking Status: Never smoker Past Alcohol Use History: None Reported Past Drug Use History: None Reported - Past Family History Mother Family Medical History: No Reported History General Exam - General Exam Comments Initial Comments: General: The patient is awake and alert, in no distress Eye: +3 mm pupils are equal, round and reactive to light, extra-ocular movements are intact. No nystagmus. There is normal conjunctiva bilaterally. No signs of icterus. Ears, nose, mouth and throat: There are moist mucous membranes and no oral lesions. Neck: The neck is supple, there is no tenderness or JVD. Cardiovascular: There is a regular rate and rhythm. No murmur, rub or gallop is appreciated. Respiratory: Lungs are clear to auscultation, respirations are non-labored, breath sounds are equal. No wheezes, stridor, rales, or rhonchi. Gastrointestinal: Soft, non-distended, non-tender abdomen without masses or organomegaly noted. There is no rebound or guarding present. Musculoskeletal: Normal ROM, no tenderness. Strength 5/5. Sensation intact. Radial and DP pulses equal bilaterally 2+. Neurological: A&O x 3. CN II-XII intact grossly, There are no obvious motor or sensory deficits. Coordination appears grossly intact. Speech is normal. Skin: Skin is warm and dry and no rashes or lesions are noted. Psychiatric: Cooperative, appropriate mood & affect, normal judgment. Limitations: no limitations Course Vital Signs 12/21/20 11:53 Temperature 97.9 F Pulse Rate 95 Respiratory 18 Rate Blood Pressure 149/103 O2 Sat by Pulse 96 Oximetry Medical Decision Making - Medical Decision Making Lab stable ultrasound nephrolithiasis. no noted obstructing stones. pt symptoms improved. appointment with Dr Davila thursday. pt states pain identical to kidney stones in the past suspect renal colic. recommend outpatient f/u return for worsening symptoms for fevers. - Lab Data Result diagrams: 12/21/20 12:38 12/21/20 12:38 Lab Results 12/21/20 12/21/20 12/21/20 Range/Units 12:38 12:38 12:38 WBC 6.9 (3.8-10.6) k/uL RBC 5.14 (3.80-5.40) m/uL Hgb 13.8 (11.4-16.0) gm/dL Hct 43.7 (34.0-46.0) % MCV 85.0 (80.0-100.0) fL MCH 26.8 (25.0-35.0) pg MCHC 31.5 (31.0-37.0) g/dL RDW 13.6 (11.5-15.5) % Plt Count 333 (150-450) k/uL MPV 6.8 Neutrophils % 57 % Lymphocytes % 31 % Monocytes % 8 % Eosinophils % 2 % Basophils % 1 % Neutrophils # 3.9 (1.3-7.7) k/uL Lymphocytes # 2.1 (1.0-4.8) k/uL Monocytes # 0.5 (0-1.0) k/uL Eosinophils # 0.2 (0-0.7) k/uL Basophils # 0.1 (0-0.2) k/uL Sodium 141 (137-145) mmol/L Potassium 4.2 (3.5-5.1) mmol/L Chloride 108 H (98-107) mmol/L Carbon Dioxide 25 (22-30) mmol/L Anion Gap 8 mmol/L BUN 13 (7-17) mg/dL Creatinine 0.87 (0.52-1.04) mg/dL Est GFR (CKD-EPI)AfAm >90 (>60 ml/min/1.73 sqM) Est GFR (CKD-EPI)NonAf 81 (>60 ml/min/1.73 sqM) Glucose 120 H (74-99) mg/dL Calcium 9.5 (8.4-10.2) mg/dL Total Bilirubin 0.3 (0.2-1.3) mg/dL AST 26 (14-36) U/L ALT 23 (4-34) U/L Alkaline Phosphatase 81 (38-126) U/L Total Protein 7.1 (6.3-8.2) g/dL Albumin 4.3 (3.5-5.0) g/dL Amylase 60 (30-110) U/L Lipase 238 (23-300) U/L Urine Color Yellow Urine Appearance Clear (Clear) Urine pH 7.0 (5.0-8.0) Ur Specific [place] 1.007 (1.001-1.035) Urine Protein Negative (Negative) Urine Glucose (UA) Negative (Negative) Urine Ketones Negative (Negative) Urine Blood Negative (Negative) Urine Nitrite Negative (Negative) Urine Bilirubin Negative (Negative) Urine Urobilinogen <2.0 (<2.0) mg/dL Ur Leukocyte Esterase Negative (Negative) Disposition Clinical Impression: Nephrolithiasis Disposition: HOME SELF-CARE Condition: Good Instructions (If sedation given, give patient instructions): Kidney Stones (ED), Renal Colic (ED) Additional Instructions: Please use medication as discussed. Please follow-up with family doctor in the next 2 days. Please return to emergency room if the symptoms increase or worsen or for any other concerns. Prescriptions: Ketorolac [Toradol] 10 mg PO Q8HR PRN 3 Days #9 tab PRN Reason: Pain Is patient prescribed a controlled substance at d/c from ED?: No Referrals: Telma Aparicio DO [Primary Care Provider] - 1-2 days Time of Disposition: 14:01
--- NOTE | 2020-12-21 13:59 | US ---
EXAMINATION TYPE: US renals and bladder DATE OF EXAM: 12/21/2020 COMPARISON: CT 2020 CLINICAL HISTORY: right flank pain. History of kidney stones, right flank pain, history of lithotrips y. EXAM MEASUREMENTS: Right Kidney: 11.7 x 4.9 x 5.5 cm Left Kidney: 12.7 x 6.4 x 4.3 cm Right Kidney: no hydronephrosis, multiple tiny echogenic foci throughout with largest measuring 0.4cm , 1.5cm cystic area superior pole, simple cyst noted within the right kidney upper pole Left Kidney: no hydronephrosis, multiple tiny echogenic foci throughout with largest measuring 0.4cm, 3.4cm cystic area inferior pole, simple cysts are confirmed within the left kidney as noted on patie nt's CT Bladder: wnl Bilateral Jets seen: yes There is no evidence for hydronephrosis at this point in time. No masses are identified. The urinary bladder is anechoic. Bilateral ureteral jets are seen. IMPRESSION: Bilateral nonobstructive nephrolithiasis, bilateral renal cortical cysts appear simple
[2020-12-21 14:39] VITALS: BP 138/78; PULSE 72; RESP 16
== END 2020-12-21 14:39 | disposition home or self-care (01) ==
LOC: EC 11:45
DX: N20.0 Calculus of kidney (principal); N28.1 Cyst of kidney, acquired; I10 Essential (primary) hypertension; Z79.1 Long term (current) use of non-steroidal anti-inflammatories (NSAID); Z79.899 Other long term (current) drug therapy; Z87.442 Personal history of urinary calculi
CPT/HCPCS: 36415; 80053; 82150; 83690; 85025; 81003; 74018; 76770; 99284; 96374; 96375 ×2; J2405; J1885; J1170

== ENCOUNTER 2021-01-10 06:33 | Day surgery (SDC) | payer BC ==
--- NOTE | 2020-12-28 18:05 | P.GSHP ---
History of Present Illness H&P Date: 12/28/20 Chief Complaint: Right flank pain The patient is a 45-year-old white female with a history of recurrent urolithiasis. She has recently experienced right flank pain and suprapubic pressure. CT scan shows bilateral small renal calculi measuring up to 5 mm in size. There is no evidence of hydronephrosis. She was offered the options of observation, ESWL, and ureteroscopy with laser lithotripsy. She has elected to undergo bilateral ureteroscopy with laser lithotripsy. Her calculi are composed of calcium oxalate and apatite. - Constitutional Constitutional: Denies chills, Denies fever - Gastrointestinal Gastrointestinal: Reports nausea - Genitourinary (Female) Genitourinary: Reports flank pain, Reports hematuria, Reports kidney stones Past Medical History Past Medical History: Hypertension Additional Past Medical History / Comment(s): kidney stones History of Any Multi-Drug Resistant Organisms: None Reported Past Surgical History: Section, Cholecystectomy, Hysterectomy Additional Past Surgical History / Comment(s): laser removal of kidney stones, stents placed in bilateral kidneys OUT NOW, Past Anesthesia/Blood Transfusion Reactions: No Reported Reaction Past Psychological History: No Psychological Hx Reported Smoking Status: Never smoker Past Alcohol Use History: None Reported Past Drug Use History: None Reported - Past Family History Mother Family Medical History: No Reported History Medications and Allergies Home Medications Medication Instructions Recorded Confirmed Type Ketorolac [Toradol] 10 mg PO Q8HR PRN 3 Days #9 tab 12/21/20 Rx Losartan [Cozaar] 50 mg PO HS 12/21/20 12/21/20 History Phenazopyridine HCl 95 mg PO ONCE PRN 12/21/20 12/21/20 History Sertraline [Zoloft] 100 mg PO HS 12/21/20 12/21/20 History Allergies Allergy/AdvReac Type Severity Reaction Status Date / Time No Known Allergies Allergy Verified 12/21/20 12:59 Surgical - Exam - General well developed, well nourished, no distress - Respiratory normal respiratory effort - Abdomen Abdomen: soft, non tender, no guarding, no rigid, no rebound - Psychiatric oriented to time, oriented to person, oriented to place, speech is normal, memory intact Results - Imaging CT scan - abdomen: report reviewed, image reviewed Assessment and Plan (1) Nephrolithiasis Status: Acute Code(s): N20.0 - CALCULUS OF KIDNEY SNOMED Code(s): 02109935 Plan: Cystoscopy, bilateral ureteroscopy with Holmium laser lithotripsy, bilateral ureteral stent insertion, possible stone basketing. The procedure then reviewed in detail with the patient. She has elected to proceed in this manner as this offers her the best chance of being stone free. She is aware of potential risks, which include anesthesia, bleeding, infection, and ureteral injury.
[2021-01-09 08:42] VITALS: BMI 34.4
[~2021-01-10 06:33] MED LIST changes: -DEXAMETHASONE SOD PHOSPHATE 10 MG/ML 1 ML VIAL IV ONE; +DEXAMETHASONE SOD PHOSPHATE 4 MG/ML 1 ML VIAL IV ONE; +HYDROmorphone 0.5 MG/0.5 ML SYRINGE IVP PRN; -LIDOCAINE 1% 20 ML VIAL (10MG/ML) FOR IV START INTRADERMA PRN; -MIDAZOLAM 2 MG/2 ML VIAL IV PRN; -Pre Op ABX Message 1 EACH MISC MISCELLANE ONE; -SCOPOLAMINE 1.5MG/72HR PATCH TRANSDERM ONE
--- NOTE | 2021-01-10 07:34 | XR ---
EXAMINATION TYPE: XR KUB DATE OF EXAM: 01/10/2021 COMPARISON: 12/21/2020 INDICATION: Bilateral renal calculi TECHNIQUE: Single view abdomen supine view FINDINGS: There is a normal bowel gas pattern. Psoas margins are normal. No organomegaly is present. Cholecystectomy clips are in the right upper quadrant. There is a 0.5 cm calcification over the mid to inferior pole left kidney present previously calcific ations in the upper left hemipelvis. Distal ureteral stone should be considered. Phlebolith could be considered. Phleboliths are likely present within the lower pelvis rate IMPRESSION: 1. Left renal stone. 2. Possible left distal ureteral stone
[2021-01-10] MEDS ORDERED: ROCURONIUM 10 MG/ML (5 ML VIAL) IV ONE (09:19)
[2021-01-10] MEDS ORDERED: GLYCOPYRROLATE 0.2 MG/ML 2 ML VIAL ONE (09:19)
[2021-01-10] MEDS ORDERED: NEOSTIGMINE 1 MG/ML 10 ML VIAL ONE (09:19)
[2021-01-10] MEDS ORDERED: MIDAZOLAM 2 MG/2 ML VIAL ONE (09:19)
[2021-01-10] MEDS ORDERED: PROPOFOL 10 MG/ML 20 ML VIAL IV ONE (09:19)
[2021-01-10] MEDS ORDERED: fentaNYL (PF) 50 MCG/ML 2 ML AMP ONE (09:19)
[2021-01-10] MEDS ORDERED: ePHEDrine SULFATE/0.9% NACL/PF 50 MG/5 ML SYRINGE IV ONE (09:19)
[2021-01-10] MEDS ORDERED: LIDOCAINE 1% INJ 10MG/ML (20 ML MDV) ONE (09:19)
[2021-01-10] MEDS ORDERED: IOPAMIDOL-370 50ML BTL MISCELLANE ONE (09:37)
[2021-01-10] MEDS ORDERED: LACTATED RINGERS 1,000 ML IV ONE (10:10)
--- NOTE | 2021-01-10 10:53 | P.OP ---
Date of Procedure: 01/10/21 Preoperative Diagnosis: Bilateral renal calculi Postoperative Diagnosis: Same Procedure(s) Performed: Cystoscopy, bilateral retrograde pyelograms, bilateral ureteroscopy with Holmium laser lithotripsy Anesthesia: VENKATA Surgeon: Grupo Bingham Estimated Blood Loss (ml): 0 IV fluids (ml): 1,200 Pathology: none sent Condition: stable Disposition: PACU Indications for Procedure: The patient is a 45-year-old white female with a history of recurrent urolithias is. She has recently experienced right flank pain and suprapubic pressure. CT scan shows bilateral small renal calculi measuring up to 5 mm in size. There is no evidence of hydronephrosis. She was offered the options of observation, ESWL, and ureteroscopy with laser lithotripsy. She has elected to undergo bilateral ureteroscopy with laser lithotripsy. Her calculi are composed of calcium oxalate and apatite. Operative Findings: Bilateral small renal calculi, all dusted completely. Description of Procedure: The patient was taken to the operating room and placed in the dorsolithotomy position, with legs supported in Jorge stirrups. The external genitalia was prepped and draped sterilely. The 30 lens was used to introduce the 21-Macanese Mcguire cystoscopic sheath through the urethra and into the bladder under direct vision. The bladder was examined in its entirety. Both ureteral orifices were normal anatomic location and configuration, and clear urine effluxed from both. No tumors or foreign bodies were seen. Using a 10-Macanese cone-tipped catheter, bilateral retrograde pyelograms were performed. Both studies were normal, showing no filling defects or obstruction. The mini flexible ureteroscope was advanced into the bladder, and the left ureteral orifice was cannulated. The ureteroscope was slowly advanced under direct vision, up to the left renal pelvis. Each calyx was examined. Multiple small calculi were identified, the largest being in the lower pole calyces. The 200 micron Holmium laser probe was passed through the ureteroscope, and lithotripsy was performed. Each calyx was examined, and each calculus was dusted completely. The ureteroscope was slowly withdrawn under direct vision. There was no evidence of ureteral trauma. The right ureteral orifice could not be cannulated with the ureteroscope. Therefore, a 0.038 inch guidewire was passed through the cystoscope. The right ureteral orifice was cannulated, and the ureteroscope was advanced up to the proximal ureter. The 12-Macanese obturator was passed over the wire, dilating the distal ureter. The ureteroscope was then advanced over the wire, into the distal ureter. The ureteroscope was then advanced under direct vision up to the right renal pelvis. Again, multiple small calculi were seen within various calyces. All were dusted completely. The ureteroscope was slowly withdrawn under direct vision. There is no evidence of ureteral trauma. The patient tolerated the procedure well and was taken to the recovery room in stable condition. [facility] [place] Report: Procedure Acuity: Elective Stone Size and Location: Bilateral renal calculi, all less than 5 mm Ureteral Dilation: Serial Dilation on right Ureteral Access Sheath Used: No Stone Sent for Analysis: No All Stones/Fragments Were Removed with a Basket: No Complications: No Preoperative Antibiotics Given: Yes Stent Placed: No I
[2021-01-10] MEDS ORDERED: KETOROLAC 15 MG/ML 1 ML VIAL IVP ONE (11:00)
[2021-01-10 11:04] VITALS: TEMP 97.5
[2021-01-10 11:44] VITALS: RESP 18
[2021-01-10 12:06] VITALS: BP 142/88; PULSE 73
--- NOTE | 2021-01-10 13:24 | FL ---
EXAMINATION TYPE: FL urography retrograde DATE OF EXAM: 01/10/2021 COMPARISON: NONE HISTORY: Fluoroscopy TECHNIQUE: Fluoroscopy. FINDINGS: Fluoroscopic guidance was provided during procedure of 29 seconds. IMPRESSION: As Above.
== END 2021-01-10 12:13 | disposition home or self-care (01) ==
LOC: OR 06:33
PROVIDERS: ATTEND Urology
DX: N20.0 Calculus of kidney (principal); I10 Essential (primary) hypertension; Z87.442 Personal history of urinary calculi; K21.9 Gastro-esophageal reflux disease without esophagitis; Z85.42 Personal history of malignant neoplasm of other parts of uterus; Z98.891 History of uterine scar from previous surgery; Z90.49 Acquired absence of other specified parts of digestive tract; Z90.710 Acquired absence of both cervix and uterus; Z79.899 Other long term (current) drug therapy
CPT/HCPCS: 52353; 74420; 74018; C1758; C1894; C1769; J2250; J1100; J2710; J0690; J2405; J2001; J3010; J1885; J2704; J1170; Q9967

== ENCOUNTER 2021-06-28 14:21 | Emergency (ER) | payer BC ==
[2021-06-28 14:53] VITALS: BP 153/103; PULSE 95; RESP 20; TEMP 98.8
[2021-06-28] MEDS ORDERED: ONDANSETRON 4 MG/2 ML VIAL IVP STA (15:28)
[2021-06-28] MEDS ORDERED: KETOROLAC 30 MG/ML 1 ML VIAL IVP STA (15:28)
[2021-06-28] MEDS ORDERED: SODIUM CHLORIDE 0.9% 2,000 ML IV STA (15:28)
[2021-06-28] MEDS ORDERED: ACETAMINOPHEN TAB 500 MG TAB PO STA (15:29)
--- NOTE | 2021-06-28 15:37 | ED ---
General Adult HPI - General Chief complaint: Abdominal Pain Stated complaint: Kidney Stone Time Seen by Provider: 06/28/21 15:08 Source: patient, RN notes reviewed Mode of arrival: ambulatory Limitations: no limitations - History of Present Illness Initial comments: 45-year-old female with a past medical history of uterine cancer, hypertension, kidney stones presents the emergency room for right flank pain. Patient states 2 days ago she started to have symptoms of a urinary tract infection. She saw her doctor on Thursday and was started on Bactrim. Patient states that today she started to have right flank pain. Patient states it feels like a kidney stone. Denies fevers but does admit to chills and nausea. Patient recently had a hysterectomy about a month ago for uterine cancer. She is not currently on any chemo but is on hormone therapy.Patient has no other complaints at this time including shortness of breath, chest pain, vomiting, headache, or visual changes. - Related Data Home Medications Medication Instructions Recorded Confirmed Losartan [Cozaar] 50 mg PO DAILY 12/21/20 06/28/21 Anastrozole 1 mg PO DAILY 06/28/21 06/28/21 Sertraline HCl [Zoloft] 100 mg PO DAILY 06/28/21 06/28/21 Sulfamethox-Tmp 800-160Mg [Bactrim 1 tab PO BID 06/28/21 06/28/21 DS 800-160 mg] Allergies Allergy/AdvReac Type Severity Reaction Status Date / Time No Known Allergies Allergy Verified 06/28/21 17:41 Review of Systems ROS Statement: Those systems with pertinent positive or pertinent negative responses have been documented in the HPI. ROS Other: All systems not noted in ROS Statement are negative. Past Medical History Past Medical History: Cancer, Hypertension Additional Past Medical History / Comment(s): Hx of and current kidney stones. Hx Uterine Cancer in 2019. History of Any Multi-Drug Resistant Organisms: None Reported Past Surgical History: Section, Cholecystectomy, Hysterectomy Additional Past Surgical History / Comment(s): Laser removal of kidney stones, stents placed and later removed in bilateral kidneys. Past Anesthesia/Blood Transfusion Reactions: No Reported Reaction Past Psychological History: No Psychological Hx Reported Smoking Status: Former smoker Past Alcohol Use History: None Reported Past Drug Use History: None Reported - Past Family History Mother Family Medical History: No Reported History General Exam Limitations: no limitations General appearance: alert, in no apparent distress Head exam: Present: atraumatic Eye exam: Present: normal appearance, PERRL, EOMI. Absent: scleral icterus, conjunctival injection ENT exam: Present: normal exam, mucous membranes moist Neck exam: Present: normal inspection. Absent: tenderness Respiratory exam: Present: normal lung sounds bilaterally. Absent: respiratory distress, wheezes Cardiovascular Exam: Present: regular rate, normal rhythm, normal heart sounds GI/Abdominal exam: Present: soft, normal bowel sounds. Absent: distended, ten derness Back exam: Present: CVA tenderness (R). Absent: CVA tenderness (L) Course Vital Signs 06/28/21 14:51 Temperature 98.8 F Pulse Rate 95 Respiratory 20 Rate Blood Pressure 153/103 O2 Sat by Pulse 98 Oximetry Medical Decision Making - Medical Decision Making vitals are stable. Patient is well-appearing. CBC is unremarkable. White blood cell count 7.6. CMP is unremarkable. Urinalysis does not show any evidence of infection or blood. CT abdomen and pelvis shows multiple bilateral nonobstructing renal calculi howeverand he can change compared to old exam. Patient was given pain medication and had significant improvement in symptoms. Possibly passed a stone. States this feels exactly like a kidney stone. Patient will follow-up with her urologist. She will return here for any worsening symptoms. - Lab Data Result diagrams: 06/28/21 16:05 06/28/21 16:05 Lab Results 06/28/21 06/28/21 06/28/21 Range/Units 16:05 16:05 16:05 WBC 7.6 (3.8-10.6) k/uL RBC 5.27 (3.80-5.40) m/uL Hgb 14.5 (11.4-16.0) gm/dL Hct 43.8 (34.0-46.0) % MCV 83.1 (80.0-100.0) fL MCH 27.5 (25.0-35.0) pg MCHC 33.1 (31.0-37.0) g/dL RDW 13.0 (11.5-15.5) % Plt Count 318 (150-450) k/uL MPV 7.1 Neutrophils % 66 % Lymphocytes % 21 % Monocytes % 7 % Eosinophils % 4 % Basophils % 1 % Neutrophils # 5.0 (1.3-7.7) k/uL Lymphocytes # 1.6 (1.0-4.8) k/uL Monocytes # 0.5 (0-1.0) k/uL Eosinophils # 0.3 (0-0.7) k/uL Basophils # 0.1 (0-0.2) k/uL Sodium 139 (137-145) mmol/L Potassium 4.1 (3.5-5.1) mmol/L Chloride 106 (98-107) mmol/L Carbon Dioxide 21 L (22-30) mmol/L Anion Gap 12 mmol/L BUN 10 (7-17) mg/dL Creatinine 1.02 (0.52-1.04) mg/dL Est GFR (CKD-EPI)AfAm 77 (>60 ml/min/1.73 sqM) Est GFR (CKD-EPI)NonAf 67 (>60 ml/min/1.73 sqM) Glucose 91 (74-99) mg/dL Plasma Lactic Acid Anthony (0.7-2.0) mmol/L Calcium 9.7 (8.4-10.2) mg/dL Total Bilirubin 0.4 (0.2-1.3) mg/dL AST 28 (14-36) U/L ALT 34 (4-34) U/L Alkaline Phosphatase 110 (38-126) U/L Total Protein 8.3 H (6.3-8.2) g/dL Albumin 4.8 (3.5-5.0) g/dL Amylase 67 (30-110) U/L Lipase 190 (23-300) U/L Urine Color Light Yellow Urine Appearance Clear (Clear) Urine pH 6.5 (5.0-8.0) Ur Specific [place] 1.009 (1.001-1.035) Urine Protein Negative (Negative) Urine Glucose (UA) Negative (Negative) Urine Ketones Negative (Negative) Urine Blood Negative (Negative) Urine Nitrite Negative (Negative) Urine Bilirubin Negative (Negative) Urine Urobilinogen <2.0 (<2.0) mg/dL Ur Leukocyte Esterase Negative (Negative) Coronavirus (PCR) (Not Detectd) 06/28/21 06/28/21 Range/Units 16:05 17:12 WBC (3.8-10.6) k/uL RBC (3.80-5.40) m/uL Hgb (11.4-16.0) gm/dL Hct (34.0-46.0) % MCV (80.0-100.0) fL MCH (25.0-35.0) pg MCHC (31.0-37.0) g/dL RDW (11.5-15.5) % Plt Count (150-450) k/uL MPV Neutrophils % % Lymphocytes % % Monocytes % % Eosinophils % % Basophils % % Neutrophils # (1.3-7.7) k/uL Lymphocytes # (1.0-4.8) k/uL Monocytes # (0-1.0) k/uL Eosinophils # (0-0.7) k/uL Basophils # (0-0.2) k/uL Sodium (137-145) mmol/L Potassium (3.5-5.1) mmol/L Chloride (98-107) mmol/L Carbon Dioxide (22-30) mmol/L Anion Gap mmol/L BUN (7-17) mg/dL Creatinine (0.52-1.04) mg/dL Est GFR (CKD-EPI)AfAm (>60 ml/min/1.73 sqM) Est GFR (CKD-EPI)NonAf (>60 ml/min/1.73 sqM) Glucose (74-99) mg/dL Plasma Lactic Acid Anthony 1.2 (0.7-2.0) mmol/L Calcium (8.4-10.2) mg/dL Total Bilirubin (0.2-1.3) mg/dL AST (14-36) U/L ALT (4-34) U/L Alkaline Phosphatase (38-126) U/L Total Protein (6.3-8.2) g/dL Albumin (3.5-5.0) g/dL Amylase (30-110) U/L Lipase (23-300) U/L Urine Color Urine Appearance (Clear) Urine pH (5.0-8.0) Ur Specific [place] (1.001-1.035) Urine Protein (Negative) Urine Glucose (UA) (Negative) Urine Ketones (Negative) Urine Blood (Negative) Urine Nitrite (Negative) Urine Bilirubin (Negative) Urine Urobilinogen (<2.0) mg/dL Ur Leukocyte Esterase (Negative) Coronavirus (PCR) Not Detected (Not Detectd) Disposition Clinical Impression: Flank pain, Renal colic Disposition: HOME SELF-CARE Condition: Good Instructions (If sedation given, give patient instructions): Flank Pain (ED) Additional Instructions: Please drink plenty of fluids. Follow-up with your doctor. Return to the emergency room for any worsening symptoms. Is patient prescribed a controlled substance at d/c from ED?: No Referrals: Telma Aparicio DO [Primary Care Provider] - 1-2 days Time of Disposition: 18:35
[2021-06-28 16:11] LABS: Basophils # (A) 0.1 k/uL (0-0.2); Basophils % (A) 1 %; Eosinophils # (A) 0.3 k/uL (0-0.7); Eosinophils % (A) 4 %; HCT 43.8 % (34.0-46.0); HGB 14.5 gm/dL (11.4-16.0); Lymphocytes # (A) 1.6 k/uL (1.0-4.8); Lymphocytes % (A) 21 %; MCH 27.5 pg (25.0-35.0); MCHC 33.1 g/dL (31.0-37.0); MCV 83.1 fL (80.0-100.0); Mean Platelet Volume 7.1; Monocytes # (A) 0.5 k/uL (0-1.0); Monocytes % (A) 7 %; Neutrophils % (A) 66 %; Platelet Count 318 k/uL (150-450); RBC 5.27 m/uL (3.80-5.40); WBC 7.6 k/uL (3.8-10.6)
[2021-06-28 16:12] LABS: Appearance,Urine Clear (Clear); Bilirubin,Urine Negative (Negative); Blood,Urine Negative (Negative); Color,Urine Light Yellow; Glucose,Urine (UA) Negative (Negative); Ketones,Urine Negative (Negative); Leukocyte Esterase,Urine Negative (Negative); Nitrite,Urine Negative (Negative); PH, Urine 6.5 (5.0-8.0); Protein,Urine Negative (Negative); Specific Gravity,Urine 1.009 (1.001-1.035); Urobilinogen,Urine <2.0 mg/dL (<2.0)
[2021-06-28 16:29] LABS: Albumin 4.8 g/dL (3.5-5.0); Calcium 9.7 mg/dL (8.4-10.2); Potassium 4.1 mmol/L (3.5-5.1); Total Bilirubin 0.4 mg/dL (0.2-1.3); Total Protein 8.3 g/dL (6.3-8.2)
--- NOTE | 2021-06-28 16:48 | CT ---
EXAMINATION TYPE: CT abdomen pelvis wo con DATE OF EXAM: 06/28/2021 COMPARISON: 11/01/2020 HISTORY: Right side flank pain x3 days. CT DLP: 969.6 mGycm Automated exposure control for dose reduction was used. Lung bases are clear. There is no pleural effusion. Heart size is normal. There is some fatty infiltration of the liver. There are clips from cholecystectomy. Spleen is intact . Stomach is intact. There is no pancreatic mass. There is a rounded fluid density with layering calc ium posterior to the gastric fundus that is a gastric fundus diverticulum. This measures 3.5 cm. And unchanged. There is no adrenal mass. There are multiple bilateral renal small calculi that measure up to 4 mm. T here is 3 cm cyst anterior left kidney. There is no hydronephrosis. Ureters are not dilated. There is normal posterior appendix. There is no mesenteric edema. There is no ascites or free air. Th ere is no bowel obstruction. Bladder distends smoothly. There is no inguinal hernia. There is no evid ence of a pelvic mass. There is hysterectomy. Lumbar vertebra have normal alignment. Disc spaces are fairly normal. There is no compression fracture. Bony pelvis is intact. Hip joints are intact. IMPRESSION: Multiple bilateral nonobstructing renal calculi. Normal appendix. No significant change compared to o ld exam.
[2021-06-28] MEDS ORDERED: MORPHINE SULFATE 4 MG/ML SYRINGE IVP STA (17:19)
--- NOTE | 2021-06-28 18:09 | XR ---
EXAMINATION TYPE: XR chest 2V DATE OF EXAM: 06/28/2021 COMPARISON: 07/06/2012 HISTORY: Fever TECHNIQUE: 2 views FINDINGS: Heart and mediastinum are normal. Lungs are clear. Diaphragm is normal. Bony thorax is inta ct. IMPRESSION: Normal chest. No change.
== END 2021-06-28 19:11 | disposition home or self-care (01) ==
LOC: EC 14:21
DX: N23 Unspecified renal colic (principal); Z20.822 Contact with and (suspected) exposure to COVID-19; I10 Essential (primary) hypertension; Z87.891 Personal history of nicotine dependence; Z79.899 Other long term (current) drug therapy
CPT/HCPCS: 36415; 80053; 82150; 83605; 83690; 85025; 81003; 87086; 87635; 71046; 74176; 99284; 96374; 96375; J2270; J2405; J1885

== ENCOUNTER 2021-12-11 09:22 | Emergency (ER) | payer BC ==
[2021-12-11 09:27] VITALS: TEMP 98.1
[2021-12-11] MEDS ORDERED: ONDANSETRON 4 MG/2 ML VIAL IVP STA (09:31)
[2021-12-11] MEDS ORDERED: SODIUM CHLORIDE 0.9% 2,000 ML IV STA (09:31)
[2021-12-11] MEDS ORDERED: KETOROLAC 15 MG/ML 1 ML VIAL IVP STA ×2 (09:31→12:06)
[2021-12-11] MEDS ORDERED: HYDROmorphone 1 MG/ML 1 ML SYRINGE IVP STA (09:32)
--- NOTE | 2021-12-11 10:26 | XR ---
EXAMINATION TYPE: XR KUB DATE OF EXAM: 12/11/2021 COMPARISON: 01/10/2021 HISTORY: Surgical clips right upper quadrant. TECHNIQUE: One view abdominal series FINDINGS: The osseous structures are intact. The bowel gas pattern is nonspecific. Lung bases are clear. Nons pecific calcifications in the pelvis are stable from 2020. Hypertrophic changes of the acetabulum can be associated with femoral acetabular impingement. IMPRESSION: 1. Nonspecific abdomen.
[2021-12-11 10:43] LABS: Basophils # (A) 0.1 k/uL (0-0.2); Basophils % (A) 1 %; Eosinophils # (A) 0.1 k/uL (0-0.7); Eosinophils % (A) 1 %; HCT 47.2 % (34.0-46.0); HGB 14.5 gm/dL (11.4-16.0); Lymphocytes # (A) 1.6 k/uL (1.0-4.8); Lymphocytes % (A) 24 %; MCH 26.8 pg (25.0-35.0); MCHC 30.6 g/dL (31.0-37.0); MCV 87.6 fL (80.0-100.0); Mean Platelet Volume 7.2; Monocytes # (A) 0.4 k/uL (0-1.0); Monocytes % (A) 6 %; Neutrophils # (A) 4.2 k/uL (1.3-7.7); Neutrophils % (A) 66 %; Platelet Count 344 k/uL (150-450); RBC 5.39 m/uL (3.80-5.40); RDW 13.6 % (11.5-15.5); WBC 6.5 k/uL (3.8-10.6)
[2021-12-11 10:48] LABS: Appearance,Urine Clear (Clear); Bilirubin,Urine Negative (Negative); Blood,Urine Negative (Negative); Color,Urine Yellow; Glucose,Urine (UA) Negative (Negative); Ketones,Urine Negative (Negative); Leukocyte Esterase,Urine Negative (Negative); Nitrite,Urine Negative (Negative); PH, Urine 7.5 (5.0-8.0); Protein,Urine Negative (Negative); Specific Gravity,Urine 1.019 (1.001-1.035); Urobilinogen,Urine <2.0 mg/dL (<2.0)
[2021-12-11 11:01] LABS: ALT 31 U/L (4-34); AST 24 U/L (14-36); African American GFR (CKD) >90 (>60 ml/min/1.73 sqM); Albumin 4.4 g/dL (3.5-5.0); Alkaline Phosphatase 92 U/L (38-126); Amylase 74 U/L (30-110); Anion Gap 7 mmol/L; Blood Urea Nitrogen 14 mg/dL (7-17); Carbon Dioxide 26 mmol/L (22-30); Chloride 106 mmol/L (98-107); Glucose 89 mg/dL (74-99); Lipase 174 U/L (23-300); Non-African American GFR(CKD) 82 (>60 ml/min/1.73 sqM); Potassium 4.5 mmol/L (3.5-5.1); Sodium 139 mmol/L (137-145); Total Bilirubin 0.6 mg/dL (0.2-1.3); Total Protein 7.6 g/dL (6.3-8.2)
[2021-12-11 11:26] VITALS: RESP 18
--- NOTE | 2021-12-11 11:37 | ED ---
Back Pain HPI - General Chief Complaint: Back Pain/Injury Stated Complaint: Kidney Stones Time Seen by Provider: 12/11/21 09:27 Source: patient, RN notes reviewed Mode of arrival: ambulatory Limitations: no limitations - History of Present Illness Initial Comments: This is a 46-year-old female presents emergency Department with chief complaint of right flank pain. Patient states been dealing with this for last few days. Patient has long history kidney stones was seen and throughout his office today sent over here for pain control, x-ray. Patient's had multiple CTs in the past. Patient is well-known to have kidney stones. Patient denies any ears or chills she states her urine has been darker slight nausea no vomiting no other complaints. - Related Data Home Medications Medication Instructions Recorded Confirmed Losartan [Cozaar] 50 mg PO HS 12/21/20 12/11/21 Anastrozole 1 mg PO HS 06/28/21 12/11/21 Sertraline HCl [Zoloft] 100 mg PO HS 06/28/21 12/11/21 Calcium Carbonate [Calcium] 600 mg PO HS 12/11/21 12/11/21 Cholecalciferol (Vitamin D3) 75 mcg PO HS 12/11/21 12/11/21 [Vitamin D3 (3000 Iu)] Previous Rx's Medication Instructions Recorded HYDROcodone/APAP 7.5-325MG [[place] 1 tab PO Q6HR PRN 3 Days #12 tab 12/11/21 7.5-325] Ketorolac [Toradol] 10 mg PO Q8HR #15 tab 12/11/21 Ondansetron Odt [Zofran Odt] 4 mg PO Q8HR PRN #10 tab 12/11/21 Allergies Allergy/AdvReac Type Severity Reaction Status Date / Time No Known Allergies Allergy Verified 12/11/21 11:56 Review of Systems ROS Statement: Those systems with pertinent positive or pertinent negative responses have been documented in the HPI. ROS Other: All systems not noted in ROS Statement are negative. Past Medical History Past Medical History: Cancer, Hypertension Additional Past Medical History / Comment(s): Hx of and current kidney stones. Hx Uterine Cancer in 2019. History of Any Multi-Drug Resistant Organisms: None Reported Past Surgical History: Section, Cholecystectomy, Hysterectomy Additional Past Surgical History / Comment(s): Laser removal of kidney stones, stents placed and later removed in bilateral kidneys. Past Anesthesia/Blood Transfusion Reactions: No Reported Reaction Past Psychological History: No Psychological Hx Reported Smoking Status: Former smoker Past Alcohol Use History: None Reported Past Drug Use History: None Reported - Past Family History Mother Family Medical History: No Reported History General Exam Limitations: no limitations General appearance: alert, in no apparent distress Head exam: Present: atraumatic, normocephalic, normal inspection Eye exam: Present: normal appearance, PERRL, EOMI. Absent: scleral icterus, conjunctival injection, periorbital swelling Respiratory exam: Present: normal lung sounds bilaterally. Absent: respiratory distress, wheezes, rales, rhonchi, stridor Cardiovascular Exam: Present: regular rate, normal rhythm, normal heart sounds. Absent: systolic murmur, diastolic murmur, rubs, gallop, clicks GI/Abdominal exam: Present: soft, normal bowel sounds. Absent: distended, tenderness, guarding, rebound, rigid Back exam: Present: CVA tenderness (R). Absent: CVA tenderness (L) Neurological exam: Present: alert, oriented X3 Skin exam: Present: warm, dry, intact, normal color. Absent: rash Course Vital Signs 12/11/21 12/11/21 09:23 11:25 Temperature 98.1 F Pulse Rate 70 72 Respiratory 16 18 Rate Blood Pressure 158/93 148/88 O2 Sat by Pulse 98 98 Oximetry Medical Decision Making - Medical Decision Making 46-year-old presented for flank pain. Labs unremarkable. Patient has no definite stone but has a long history of it sent by urology for pain control. Patient we discharged stable condition return parameters were discussed. - Lab Data Result diagrams: 12/11/21 10:25 12/11/21 10:25 Lab Results 12/11/21 12/11/21 12/11/21 Range/Units 10:25 10:25 10:25 WBC 6.5 (3.8-10.6) k/uL RBC 5.39 (3.80-5.40) m/uL Hgb 14.5 (11.4-16.0) gm/dL Hct 47.2 H (34.0-46.0) % MCV 87.6 (80.0-100.0) fL MCH 26.8 (25.0-35.0) pg MCHC 30.6 L (31.0-37.0) g/dL RDW 13.6 (11.5-15.5) % Plt Count 344 (150-450) k/uL MPV 7.2 Neutrophils % 66 % Lymphocytes % 24 % Monocytes % 6 % Eosinophils % 1 % Basophils % 1 % Neutrophils # 4.2 (1.3-7.7) k/uL Lymphocytes # 1.6 (1.0-4.8) k/uL Monocytes # 0.4 (0-1.0) k/uL Eosinophils # 0.1 (0-0.7) k/uL Basophils # 0.1 (0-0.2) k/uL Sodium 139 (137-145) mmol/L Potassium 4.5 (3.5-5.1) mmol/L Chloride 106 (98-107) mmol/L Carbon Dioxide 26 (22-30) mmol/L Anion Gap 7 mmol/L BUN 14 (7-17) mg/dL Creatinine 0.86 (0.52-1.04) mg/dL Est GFR (CKD-EPI)AfAm >90 (>60 ml/min/1.73 sqM) Est GFR (CKD-EPI)NonAf 82 (>60 ml/min/1.73 sqM) Glucose 89 (74-99) mg/dL Calcium 9.0 (8.4-10.2) mg/dL Total Bilirubin 0.6 (0.2-1.3) mg/dL AST 24 (14-36) U/L ALT 31 (4-34) U/L Alkaline Phosphatase 92 (38-126) U/L Total Protein 7.6 (6.3-8.2) g/dL Albumin 4.4 (3.5-5.0) g/dL Amylase 74 (30-110) U/L Lipase 174 (23-300) U/L Urine Color Yellow Urine Appearance Clear (Clear) Urine pH 7.5 (5.0-8.0) Ur Specific [place] 1.019 (1.001-1.035) Urine Protein Negative (Negative) Urine Glucose (UA) Negative (Negative) Urine Ketones Negative (Negative) Urine Blood Negative (Negative) Urine Nitrite Negative (Negative) Urine Bilirubin Negative (Negative) Urine Urobilinogen <2.0 (<2.0) mg/dL Ur Leukocyte Esterase Negative (Negative) Disposition Clinical Impression: Flank pain, Nephrolithiasis Disposition: HOME SELF-CARE Condition: Stable Instructions (If sedation given, give patient instructions): Kidney Stones (ED) Additional Instructions: Please return to the Emergency Department if symptoms worsen or any other concerns. Prescriptions: HYDROcodone/APAP 7.5-325MG [[place] 7.5-325] 1 tab PO Q6HR PRN 3 Days #12 tab PRN Reason: pain Ketorolac [Toradol] 10 mg PO Q8HR #15 tab Ondansetron Odt [Zofran Odt] 4 mg PO Q8HR PRN #10 tab PRN Reason: Nausea Is patient prescribed a controlled substance at d/c from ED?: Yes Referrals: Telma Aparicio DO [Primary Care Provider] - 1-2 days Grupo Bingham MD [STAFF PHYSICIAN] - 1-2 days Time of Disposition: 12:11
[2021-12-11] MEDS ORDERED: HYDROmorphone 0.5 MG/0.5 ML SYRINGE IVP STA (12:06)
[2021-12-11 13:19] VITALS: BP 150/89; PULSE 75
== END 2021-12-11 12:52 | disposition home or self-care (01) ==
LOC: EC 09:22
DX: N20.0 Calculus of kidney (principal); I10 Essential (primary) hypertension; Z87.891 Personal history of nicotine dependence
CPT/HCPCS: 99284; 96374; 96375; 96376; 96361; 36415; 80053; 82150; 83690; 85025; 81003; 74018; J2405; J1170 ×2; J1885

== ENCOUNTER 2022-04-02 20:09 | Emergency (ER) | payer BC ==
[2022-04-02 20:37] VITALS: TEMP 98.5
--- NOTE | 2022-04-02 22:32 | ED ---
Abdominal Pain HPI - General Chief Complaint: Abdominal Pain Stated Complaint: kidney stone Time Seen by Provider: 04/02/22 22:19 Source: patient, RN notes reviewed, old records reviewed Mode of arrival: ambulatory Limitations: no limitations - History of Present Illness Initial Comments: This is a 46-year-old female DF for evaluation. Patient coming in with severe flank pain states she has history of kidney stones this feels like her kidney stones. No dysuria or fever. Denying significant blood in the ER currently. MD Complaint: abdominal pain, flank pain -: hour(s) Location: RLQ, R flank Radiation: R flank Migration to: RLQ Severity: moderate Severity scale (1-10): 6 Quality: sharp Consistency: constant Improves With: nothing Worsens With: nothing Context: sick contacts Associated Symptoms: nausea Treatments Prior to Arrival: other (0) - Related Data Home Medications Medication Instructions Recorded Confirmed Losartan [Cozaar] 50 mg PO HS 12/21/20 12/11/21 Anastrozole 1 mg PO HS 06/28/21 12/11/21 Sertraline HCl [Zoloft] 100 mg PO HS 06/28/21 12/11/21 Calcium Carbonate [Calcium] 600 mg PO HS 12/11/21 12/11/21 Cholecalciferol (Vitamin D3) 75 mcg PO HS 12/11/21 12/11/21 [Vitamin D3 (3000 Iu)] Previous Rx's Medication Instructions Recorded HYDROcodone/APAP 7.5-325MG [[place] 1 tab PO Q6HR PRN 3 Days #12 tab 12/11/21 7.5-325] Ketorolac [Toradol] 10 mg PO Q8HR #15 tab 12/11/21 Ondansetron Odt [Zofran Odt] 4 mg PO Q8HR PRN #10 tab 12/11/21 Ciprofloxacin HCl [Cipro] 500 mg PO Q12HR #20 tablet 04/02/22 Allergies Allergy/AdvReac Type Severity Reaction Status Date / Time No Known Allergies Allergy Verified 04/02/22 20:35 Review of Systems ROS Statement: Those systems with pertinent positive or pertinent negative responses have been documented in the HPI. ROS Other: All systems not noted in ROS Statement are negative. Past Medical History Past Medical History: Cancer, Hypertension Additional Past Medical History / Comment(s): Hx of and current kidney stones. Hx Uterine Cancer in 2019. History of Any Multi-Drug Resistant Organisms: None Reported Past Surgical History: Section, Cholecystectomy, Hysterectomy Additional Past Surgical History / Comment(s): Laser removal of kidney stones, stents placed and later removed in bilateral kidneys. Past Anesthesia/Blood Transfusion Reactions: No Reported Reaction Past Psychological History: No Psychological Hx Reported Smoking Status: Former smoker Past Alcohol Use History: None Reported Past Drug Use History: None Reported - Past Family History Mother Family Medical History: No Reported History General Exam Limitations: no limitations General appearance: alert, in no apparent distress Head exam: Present: atraumatic, normocephalic, normal inspection Eye exam: Present: normal appearance, PERRL, EOMI. Absent: scleral icterus, conjunctival injection, periorbital swelling ENT exam: Present: normal exam, mucous membranes moist Neck exam: Present: normal inspection. Absent: tenderness, meningismus, lymphadenopathy Respiratory exam: Present: normal lung sounds bilaterally. Absent: respiratory distress, wheezes, rales, rhonchi, stridor Cardiovascular Exam: Present: regular rate, normal rhythm, normal heart sounds. Absent: systolic murmur, diastolic murmur, rubs, gallop, clicks GI/Abdominal exam: Present: soft, normal bowel sounds. Absent: distended, tenderness, guarding, rebound, rigid Extremities exam: Present: normal inspection, full ROM, normal capillary refill. Absent: tenderness, pedal edema, joint swelling, calf tenderness Back exam: Present: normal inspection Neurological exam: Present: alert, oriented X3, CN II-XII intact Psychiatric exam: Present: normal affect, normal mood Skin exam: Present: warm, dry, intact, normal color. Absent: rash Course Vital Signs 04/02/22 20:35 Temperature 98.5 F Pulse Rate 87 Respiratory 16 Rate Blood Pressure 161/87 O2 Sat by Pulse 98 Oximetry - Reevaluation(s) Reevaluation #1: 04/02/22 22:32 Records reviewed Reevaluation #2: 04/02/22 23:44 Patient feels improved here in the ER Reevaluation #3: 04/02/22 23:44 Patient informed results and questions answered Medical Decision Making - Medical Decision Making 46 female DF for evaluation of abdominal pain feels like kidney stones she has have a mild urinary tract infection will treat with antibiotics, patient will also be given pain control for kidney stone a fall with Dr. Aggarwal - Lab Data Result diagrams: 04/02/22 23:02 Lab Results 04/02/22 04/02/22 04/02/22 Range/Units 23:02 23:02 23:02 WBC 8.2 (3.8-10.6) k/uL RBC 5.03 (3.80-5.40) m/uL Hgb 14.3 (11.4-16.0) gm/dL Hct 43.7 (34.0-46.0) % MCV 86.9 (80.0-100.0) fL MCH 28.4 (25.0-35.0) pg MCHC 32.7 (31.0-37.0) g/dL RDW 13.7 (11.5-15.5) % Plt Count 367 (150-450) k/uL MPV 7.4 Neutrophils % 57 % Lymphocytes % 28 % Monocytes % 9 % Eosinophils % 2 % Basophils % 2 % Neutrophils # 4.7 (1.3-7.7) k/uL Lymphocytes # 2.3 (1.0-4.8) k/uL Monocytes # 0.7 (0-1.0) k/uL Eosinophils # 0.1 (0-0.7) k/uL Basophils # 0.1 (0-0.2) k/uL Urine Color Dark Yellow Urine Appearance Cloudy H (Clear) Urine pH 7.5 (5.0-8.0) Ur Specific [place] 1.016 (1.001-1.035) Urine Protein Negative (Negative) Urine Glucose (UA) Negative (Negative) Urine Ketones Negative (Negative) Urine Blood Trace H (Negative) Urine Nitrite Positive H (Negative) Urine Bilirubin 1+ H (Negative) Urine Urobilinogen 3.0 (<2.0) mg/dL Ur Leukocyte Esterase Negative (Negative) Urine RBC 13 H (0-5) /hpf Urine WBC 1 (0-5) /hpf Ur Squamous Epith Cells 2 (0-4) /hpf Amorphous Sediment Rare H (None) /hpf Urine Bacteria Rare H (None) /hpf Urine Mucus Occasional H (None) /hpf Urine HCG, Qual Not Detected (Not Detectd) Disposition Clinical Impression: UTI (urinary tract infection), Nephrolithiasis, Flank pain Disposition: HOME SELF-CARE Condition: Good Instructions (If sedation given, give patient instructions): Kidney Stones (ED), Urinary Tract Infection in Women (ED) Prescriptions: Ciprofloxacin HCl [Cipro] 500 mg PO Q12HR #20 tablet Is patient prescribed a controlled substance at d/c from ED?: No Referrals: Grupo Bingham MD [STAFF PHYSICIAN] - 1-2 days
[2022-04-02] MEDS ORDERED: KETOROLAC 15 MG/ML 1 ML VIAL IVP STA (22:58)
[2022-04-02] MEDS ORDERED: ONDANSETRON 4 MG/2 ML VIAL IVP STA (22:58)
[2022-04-02] MEDS ORDERED: MORPHINE SULFATE 4 MG/ML SYRINGE IV STA (22:58)
[2022-04-02] MEDS ORDERED: SODIUM CHLORIDE 0.9% 1,000 ML IV STA (22:58)
[2022-04-02 23:21] LABS: Basophils # (A) 0.1 k/uL (0-0.2); Basophils % (A) 2 %; Eosinophils # (A) 0.1 k/uL (0-0.7); Eosinophils % (A) 2 %; HCT 43.7 % (34.0-46.0); HGB 14.3 gm/dL (11.4-16.0); Lymphocytes # (A) 2.3 k/uL (1.0-4.8); Lymphocytes % (A) 28 %; MCH 28.4 pg (25.0-35.0); MCHC 32.7 g/dL (31.0-37.0); MCV 86.9 fL (80.0-100.0); Mean Platelet Volume 7.4; Monocytes # (A) 0.7 k/uL (0-1.0); Monocytes % (A) 9 %; Neutrophils # (A) 4.7 k/uL (1.3-7.7); Neutrophils % (A) 57 %; Platelet Count 367 k/uL (150-450); RBC 5.03 m/uL (3.80-5.40); RDW 13.7 % (11.5-15.5); WBC 8.2 k/uL (3.8-10.6)
[2022-04-02 23:25] LABS: Amorphous Sediment,Urine Rare /hpf; Appearance,Urine Cloudy (Clear); Bacteria,Urine Rare /hpf; Bilirubin,Urine 1+ (Negative); Blood,Urine Trace (Negative); Color,Urine Dark Yellow; Glucose,Urine (UA) Negative (Negative); Ketones,Urine Negative (Negative); Leukocyte Esterase,Urine Negative (Negative); Mucus,Urine Occasional /hpf; Nitrite,Urine Positive (Negative); PH, Urine 7.5 (5.0-8.0); Protein,Urine Negative (Negative); RBC,Urine 13 /hpf (0-5); Specific Gravity,Urine 1.016 (1.001-1.035); Squamous Epithelial Cell,Urine 2 /hpf (0-4); WBC,Urine 1 /hpf (0-5)
[2022-04-02] MEDS ORDERED: cefTRIAXone IN SWFI 1,000 MG/10 ML SYRINGE IVP STA (23:42)
[2022-04-02] MEDS ORDERED: IBUPROFEN 600 MG STARTER PACK 4 TAB BTL PO STA (23:43)
[2022-04-02] MEDS ORDERED: ONDANSETRON 4 MG ODT STARTER PACK 2 TAB BTL PO STA (23:43)
[2022-04-02] MEDS ORDERED: ACET/COD 300 MG/30 MG STARTER PACK 6 TAB BTL PO STA (23:43)
[2022-04-02] MEDS ORDERED: CIPROFLOXACIN HCL 500 MG TAB PO STA (23:43)
[2022-04-03 00:09] LABS: ALT 30 U/L (4-34); African American GFR (CKD) >90 (>60 ml/min/1.73 sqM); Amylase 79 U/L (30-110); Anion Gap 14 mmol/L; Blood Urea Nitrogen 16 mg/dL (7-17); Calcium 9.2 mg/dL (8.4-10.2); Carbon Dioxide 23 mmol/L (22-30); Chloride 103 mmol/L (98-107); Glucose 81 mg/dL (74-99); Lipase 209 U/L (23-300); Non-African American GFR(CKD) 80 (>60 ml/min/1.73 sqM); Sodium 140 mmol/L (137-145)
[2022-04-03 00:23] VITALS: BP 148/91; PULSE 84; RESP 18
[2022-04-03 00:32] LABS: Potassium 4.9 mmol/L (3.5-5.1)
[2022-04-03 00:33] LABS: AST 47 U/L (14-36); Albumin 4.6 g/dL (3.5-5.0); Alkaline Phosphatase 83 U/L (38-126); Total Bilirubin 0.8 mg/dL (0.2-1.3)
== END 2022-04-03 00:23 | disposition home or self-care (01) ==
LOC: EC 20:09
DX: N39.0 Urinary tract infection, site not specified (principal); N20.0 Calculus of kidney; I10 Essential (primary) hypertension; Z87.891 Personal history of nicotine dependence; Z79.899 Other long term (current) drug therapy
CPT/HCPCS: 36415; 80053; 82150; 83690; 85025; 81001; 81025; 99284; 96374; 96375 ×3; 96361; J2270; J2405; J1885

== ENCOUNTER → 2022-04-15 | Outpatient (CLI) | payer BC ==
[2022-04-15 14:54] LABS: Basophils # (A) 0.09 X 10*3/uL (0.00-0.10); Basophils % (A) 1.6 %; Eosinophils # (A) 0.21 X 10*3/uL (0.04-0.35); Eosinophils % (A) 3.8 %; HCT 44.4 % (37.2-46.3); HGB 13.6 g/dL (12.0-15.0); Immature Grans, Automated 0.4 %; Lymphocytes # (A) 1.78 X 10*3/uL (0.90-5.00); Lymphocytes % (A) 31.9 %; MCH 26.7 pg (27.0-32.0); MCHC 30.6 g/dL (32.0-37.0); MCV 87.1 fL (80.0-97.0); Mean Platelet Volume 9.6 fL (9.5-12.2); Monocytes # (A) 0.51 X 10*3/uL (0.20-1.00); Monocytes % (A) 9.1 %; NRBC Per 100 WBC 0 /100 WBCS (0.0-0.0); Neutrophils # (A) 2.97 X 10*3/uL (1.80-7.70); Neutrophils % (A) 53.2 %; Platelet Count 297 X 10*3/uL (140-440); RDW 13.7 % (11.5-14.5); WBC 5.58 X 10*3/uL (4.50-10.00)
[2022-04-15 15:19] LABS: African American GFR (CKD) 92.2 (60.0-200.0); Anion Gap 12.8 mmol/L (10.00-18.00); BUN/Creat Ratio 14.32 Ratio (12.00-20.00); Blood Urea Nitrogen 12.5 mg/dL (9.0-27.0); Calcium 9.1 mg/dL (8.7-10.3); Carbon Dioxide 24.6 mmol/L (20.0-27.5); Non-African American GFR(CKD) 79.6 (60.0-200.0); Potassium 4.3 mmol/L (3.5-5.5)
== END | disposition home or self-care (01) ==
LOC: LABPAT 08:43
PROVIDERS: ATTEND Urology
DX: Z01.812 Encounter for preprocedural laboratory examination (principal); N20.0 Calculus of kidney
CPT/HCPCS: 80048; 85025

== ENCOUNTER 2022-04-24 07:40 | Day surgery (SDC) | payer BC ==
[~2022-04-24 07:40] MED LIST changes: -LACTATED RINGERS 1,000 ML IV SCH
--- NOTE | 2022-04-24 07:57 | XR ---
EXAMINATION TYPE: XR KUB DATE OF EXAM: 04/24/2022 Comparison: 12/11/2021 Clinical History: 46-year-old female bilateral kidney stones, presurgical exam Findings: Cholecystectomy clips. Faint calcifications left mid abdomen measuring 4 mm and 3 mm. Rounded calcifi cation may represent phleboliths. Nonobstructive bowel gas pattern. No significant stool burden. Impression: Faint densities left mid abdomen measuring 4 mm and 3 mm, likely renal calculi. Additional rounded de nsities in the pelvis probably phleboliths. Clinically correlate.
[2022-04-24] MEDS: LACTATED RINGERS 1,000 ML IV SCH ×2 (08:35→10:47)
[2022-04-24] MEDS ORDERED: DEXAMETHASONE SOD PHOSPHATE 4 MG/ML 1 ML VIAL IVP ONE (08:38)
--- NOTE | 2022-04-24 08:41 | P.GSHP ---
History of Present Illness H&P Date: 04/24/22 Chief Complaint: Right flank pain The patient is a 46-year-old white female with a history of recurrent urolithiasis. She has recently experienced right flank pain. CT scan in June 2021 showed bilateral small renal calculi measuring up to 4 mm in size. A KUB x-ray in December 2021 showed no calculi. In view of her recent pain, she has elected to undergo bilateral ureteroscopy with laser lithotripsy. Her calculi are composed of calcium oxalate and apatite. - Constitutional Constitutional: Denies chills, Denies fever - Gastrointestinal Gastrointestinal: Reports nausea - Genitourinary (Female) Genitourinary: Reports flank pain, Reports hematuria, Reports kidney stones Past Medical History Past Medical History: Cancer, Hypertension Additional Past Medical History / Comment(s): Hx of and current kidney stones. Hx Uterine Cancer in 2019. History of Any Multi-Drug Resistant Organisms: None Reported Past Surgical History: Section, Cholecystectomy, Hysterectomy Additional Past Surgical History / Comment(s): Laser removal of kidney stones, stents placed and later removed in bilateral kidneys. Past Anesthesia/Blood Transfusion Reactions: No Reported Reaction Additional Past Anesthesia/Blood Transfusion Reaction / Comment(s): No blood transfusions Smoking Status: Former smoker - Past Family History Mother Family Medical History: No Reported History Father Family Medical History: No Reported History Medications and Allergies Home Medications Medication Instructions Recorded Confirmed Type Losartan [Cozaar] 50 mg PO HS 12/21/20 04/21/22 History Anastrozole 1 mg PO HS 06/28/21 04/21/22 History Sertraline HCl [Zoloft] 100 mg PO HS 06/28/21 04/21/22 History Calcium Carbonate [Calcium] 600 mg PO HS 12/11/21 04/21/22 History Cholecalciferol (Vitamin D3) 75 mcg PO HS 12/11/21 04/21/22 History [Vitamin D3 (3000 Iu)] HYDROcodone/APAP 7.5-325MG [[place] 1 tab PO Q6HR PRN 3 Days #12 tab 12/11/21 04/21/22 Rx 7.5-325] Allergies Allergy/AdvReac Type Severity Reaction Status Date / Time No Known Allergies Allergy Verified 04/24/22 08:09 Surgical - Exam - General well developed, well nourished, no distress - Respiratory normal respiratory effort - Abdomen Abdomen: soft, non tender, no guarding, no rigid, no rebound - Psychiatric oriented to time, oriented to person, oriented to place, speech is normal, memory intact Results - Imaging Abdominal x-ray: report reviewed, image reviewed Assessment and Plan (1) Nephrolithiasis Status: Acute Code(s): N20.0 - CALCULUS OF KIDNEY SNOMED Code(s): 90764944 Plan: Cystoscopy, bilateral ureteroscopy with Holmium laser lithotripsy and possible stone basketing, possible ureteral stent insertion. The patient is aware of potential risks, which include anesthesia, bleeding, infection, and ureteral injury.
[2022-04-24] MEDS ORDERED: fentaNYL (PF) 50 MCG/ML 2 ML AMP ONE (10:45)
[2022-04-24] MEDS ORDERED: PHENYLEPHRINE-0.9% NACL SYG 1,000 MCG/10 ML SYRINGE ONE (10:45)
[2022-04-24] MEDS ORDERED: PROPOFOL 10 MG/ML 20 ML VIAL IV ONE (10:45)
[2022-04-24] MEDS ORDERED: SUCCINYLCHOLINE CHLORIDE 200 MG/10 ML VIAL IV ONE (10:45)
[2022-04-24] MEDS ORDERED: NEOSTIGMINE 1 MG/ML 10 ML VIAL ONE (10:45)
[2022-04-24] MEDS ORDERED: ROCURONIUM 10 MG/ML (5 ML VIAL) IV ONE (10:45)
[2022-04-24] MEDS ORDERED: GLYCOPYRROLATE 0.2 MG/ML 2 ML VIAL ONE (10:45)
[2022-04-24] MEDS ORDERED: MIDAZOLAM 2 MG/2 ML VIAL ONE (10:45)
[2022-04-24] MEDS ORDERED: LIDOCAINE 2% INJ 20 MG/ML (2 ML VIAL) ONE (10:45)
[2022-04-24] MEDS ORDERED: IOPAMIDOL-370 50ML BTL MISCELLANE ONE (11:15)
--- NOTE | 2022-04-24 11:52 | P.OP ---
Date of Procedure: 04/24/22 Preoperative Diagnosis: Bilateral renal calculi Postoperative Diagnosis: Bilateral renal calculi, right ureteral calculus Procedure(s) Performed: Cystoscopy, bilateral retrograde pyelograms, right ureteroscopy with Holmium laser lithotripsy and stone basketing Anesthesia: VENKATA Surgeon: Grupo Bingham Estimated Blood Loss (ml): 0 IV fluids (ml): 600 Pathology: other (Calculus fragments) Condition: stable Disposition: PACU Indications for Procedure: The patient is a 46-year-old white female with a history of recurrent urolithiasis. She has recently experienced right flank pain. CT scan in June 2021 showed bilateral small renal calculi measuring up to 4 mm in size. A KUB x-ray in December 2021 showed no calculi. In view of her recent pain, she has elected to undergo bilateral ureteroscopy with laser lithotripsy. Her calculi are composed of calcium oxalate and apatite. Operative Findings: 4 mm right distal ureteral calculus, fragmented and removed completely. Description of Procedure: The patient was taken to the operating room and placed in the dorsolithotomy position, with legs supported in Jorge stirrups. The external genitalia was prepped and draped sterilely. The 30 lens was used to introduce the 21-American Mcguire cystoscopic sheath through the urethra and into the bladder under direct vision. The bladder was examined in its entirety. Both ureteral orifices were normal anatomic location and configuration, and clear urine effluxed from both. No tumors or foreign bodies were seen. Using a 10-American cone-tipped catheter, bilateral retrograde pyelograms were performed. The left side was normal, showing the ureter to be normal in caliber with no calculi or filling defects. There was no evidence of hydronephrosis. The right retrograde pyelogram revealed a calculus within the right distal ureter, measuring approximately 4 mm in size. The Mcguire semirigid ureteroscope was advanced into the bladder, and the right ureteral orifice was cannulated. The ureteroscope was advanced up to the calculus. The 272 micron Holmium laser probe was passed through the ureteroscope, and lithotripsy was performed. After fragmenting the calculus, and all calculus fragments were removed using a 1.9- American nitinol basket. The ureteroscope was then advanced up to the right UPJ. There were no additional calculi, and as the ureteroscope was withdrawn it was confirmed that there were no calculus fragments within the ureter and no evidence of ureteral trauma. After removing the ureteroscope, the cystoscope was replaced into the bladder on the calculus fragments were removed. The bladder was emptied and the cystoscope removed. The patient tolerated the procedure well and was taken to the recovery room in stable condition. IBAN PHOENIXVILLEKai Report: Procedure Acuity: Semi-Urgent Stone Size and Location: 4 mm, right distal ureter Ureteral Dilation: No Ureteral Access Sheath Used: No Stone Sent for Analysis: No All Stones/Fragments Were Removed with a Basket: Yes Complications: No Preoperative Antibiotics Given: Yes Stent Placed: No Discharge Medications: None
[2022-04-24 12:03] VITALS: TEMP 98.1
--- NOTE | 2022-04-24 12:25 | FL ---
Fluoroscopy HISTORY: Bilateral renal stones 10 seconds fluoroscopy time supplied to the referring clinician. 2 intraoperative C-arm images docum ent the procedure. See dictated report from urology.
[2022-04-24] MEDS ORDERED: LACTATED RINGERS 1,000 ML IV ONE (12:45)
[2022-04-24 13:00] VITALS: RESP 18
[2022-04-24] MEDS ORDERED: HYDROcodone/APAP 7.5-325MG 1 EACH TAB ONE (13:04)
[2022-04-24 13:32] VITALS: BP 130/88; PULSE 91
== END 2022-04-24 13:50 | disposition home or self-care (01) ==
LOC: OR 07:40
PROVIDERS: ATTEND Urology
DX: N20.2 Calculus of kidney with calculus of ureter (principal); I10 Essential (primary) hypertension; Z85.42 Personal history of malignant neoplasm of other parts of uterus; Z87.891 Personal history of nicotine dependence; E66.01 Morbid (severe) obesity due to excess calories; F32.A Depression, unspecified; Z79.899 Other long term (current) drug therapy; Z79.811 Long term (current) use of aromatase inhibitors; Z79.891 Long term (current) use of opiate analgesic
CPT/HCPCS: 52353; 82365; 74420; 74018; C1758; J2250; J0330; J1100; J2710; J0690; J2405; J3010; J2370; J2704; Q9967; J2001

== ENCOUNTER 2022-05-02 15:09 | Emergency (ER) | payer BC ==
[2022-05-02 16:43] VITALS: TEMP 98.6
[2022-05-02 17:14] LABS: Appearance,Urine Clear (Clear); Bilirubin,Urine Negative (Negative); Blood,Urine Negative (Negative); Color,Urine Yellow; Glucose,Urine (UA) Negative (Negative); Ketones,Urine 1+ (Negative); Leukocyte Esterase,Urine Negative (Negative); Nitrite,Urine Negative (Negative); PH, Urine 5.5 (5.0-8.0); Protein,Urine Trace (Negative); Specific Gravity,Urine 1.021 (1.001-1.035); Urobilinogen,Urine <2.0 mg/dL (<2.0)
--- NOTE | 2022-05-02 17:49 | XR ---
EXAMINATION TYPE: XR KUB DATE OF EXAM: 05/02/2022 COMPARISON: 04/24/2022 HISTORY: Kidney stone TECHNIQUE: 2 views FINDINGS: 2 view supine were obtained. There is no sign of intestinal obstruction or pneumoperitoneum . There are clips from cholecystectomy. Fecal pattern is normal. Possible 4 mm calculus over the left kidney. Lung bases are clear. IMPRESSION: Nonacute abdomen. Possible left renal calculus. No change.
[2022-05-02] MEDS ORDERED: ONDANSETRON 4 MG/2 ML VIAL IVP STA (18:37)
[2022-05-02] MEDS ORDERED: HYDROmorphone 1 MG/ML 1 ML SYRINGE IVP STA (18:37)
[2022-05-02] MEDS ORDERED: KETOROLAC 15 MG/ML 1 ML VIAL IVP STA (18:37)
[2022-05-02 19:01] LABS: Basophils # (A) 0.1 k/uL (0-0.2); Basophils % (A) 1 %; Eosinophils # (A) 0.2 k/uL (0-0.7); Eosinophils % (A) 2 %; HCT 42.7 % (34.0-46.0); HGB 13.6 gm/dL (11.4-16.0); Lymphocytes # (A) 2.9 k/uL (1.0-4.8); Lymphocytes % (A) 36 %; MCH 27.1 pg (25.0-35.0); MCHC 31.8 g/dL (31.0-37.0); MCV 85.3 fL (80.0-100.0); Mean Platelet Volume 7.4; Monocytes # (A) 0.6 k/uL (0-1.0); Monocytes % (A) 8 %; Neutrophils # (A) 4.1 k/uL (1.3-7.7); Neutrophils % (A) 51 %; Platelet Count 272 k/uL (150-450); RBC 5.01 m/uL (3.80-5.40); RDW 13.1 % (11.5-15.5); WBC 8.2 k/uL (3.8-10.6)
[2022-05-02 19:10] LABS: ALT 35 U/L (4-34); African American GFR (CKD) >90 (>60 ml/min/1.73 sqM); Anion Gap 13 mmol/L; Blood Urea Nitrogen 16 mg/dL (7-17); Calcium 9.5 mg/dL (8.4-10.2); Carbon Dioxide 23 mmol/L (22-30); Chloride 103 mmol/L (98-107); Glucose 80 mg/dL (74-99); Non-African American GFR(CKD) 85 (>60 ml/min/1.73 sqM); Sodium 139 mmol/L (137-145); Total Bilirubin 0.8 mg/dL (0.2-1.3)
[2022-05-02 19:12] LABS: AST 41 U/L (14-36); Albumin 4.6 g/dL (3.5-5.0); Alkaline Phosphatase 70 U/L (38-126); Potassium 4.6 mmol/L (3.5-5.1); Total Protein 7.6 g/dL (6.3-8.2)
--- NOTE | 2022-05-02 19:21 | US ---
EXAMINATION TYPE: US renals and bladder DATE OF EXAM: 05/02/2022 COMPARISON: CT, XR, US CLINICAL HISTORY: flank pain. Right flank pain. Hx stones, stones removed, stents placed and removed, renal cyst. EXAM MEASUREMENTS: Right Kidney: 12.0 x 5.6 x 5.5 cm Left Kidney: 12.3 x 5.3 x 6.8 cm Right Kidney: Anechoic area seen upper pole: 1.9 x 1.8 x 1.6 cm. Hyperechoic focus seen: 0.7 x 0.7 x 0.7 cm. Left Kidney: Anechoic area seen laterally: 1.3 x 1.7 x 1.4 cm. Complex area seen medially: 3.2 x 4.2 x 3.0 cm. Bladder: Slightly limited, not fully distended. Bilateral Jets seen: Yes IMPRESSION: No evidence of renal obstruction. Bilateral renal cortical cysts. No suspicious renal mass. There is evidence of 7 mm calculus interpolar right kidney.
--- NOTE | 2022-05-02 20:12 | ED ---
Abdominal Pain HPI - General Chief Complaint: Abdominal Pain Stated Complaint: kidney stones Time Seen by Provider: 05/02/22 17:15 Source: patient Mode of arrival: ambulatory - History of Present Illness Initial Comments: 46 year old female with past medical history of uterine cancer in remission, recurrent kidney stones who presents to the emergency department reporting right flank pain. Patient had procedure on April [address] Bingham. Procedure included cystoscopy, bilateral retrograde pyelogram, right ureteroscopy with laser lithotripsy and stone basketing. Reports that she continues to have pain after the procedure. She saw Dr. Amato on Thursday who started her on Ray. She has been taking the medications as directed however has not "touched her pain". She admits to increased frequency of urination. No hematuria. No fevers. Denies diarrhea, constipation, black or bloody stools. No vaginal bleeding or discharge. No other alleviating, precipitating or modifying factors - Related Data Home Medications Medication Instructions Recorded Confirmed Losartan [Cozaar] 50 mg PO HS 12/21/20 05/02/22 Anastrozole 1 mg PO HS 06/28/21 05/02/22 Sertraline HCl [Zoloft] 100 mg PO HS 06/28/21 05/02/22 Calcium Carbonate [Calcium] 600 mg PO HS 12/11/21 05/02/22 Cholecalciferol (Vitamin D3) 75 mcg PO HS 12/11/21 05/02/22 [Vitamin D3 (3000 Iu)] Previous Rx's Medication Instructions Recorded HYDROcodone/APAP 7.5-325MG [Ray 1 tab PO Q6HR PRN 2 Days #6 tab 04/24/22 7.5-325] HYDROcodone/APAP 10-325MG [Ray 1 tab PO Q4HR PRN #18 tab 05/02/22 10-325] Allergies Allergy/AdvReac Type Severity Reaction Status Date / Time No Known Allergies Allergy Verified 05/02/22 17:22 Review of Systems ROS Statement: Those systems with pertinent positive or pertinent negative responses have been documented in the HPI. ROS Other: All systems not noted in ROS Statement are negative. Past Medical History Past Medical History: Cancer, Hypertension Additional Past Medical History / Comment(s): Hx of and current kidney stones. Hx Uterine Cancer in 2019. History of Any Multi-Drug Resistant Organisms: None Reported Past Surgical History: Section, Cholecystectomy, Hysterectomy Additional Past Surgical History / Comment(s): Laser removal of kidney stones, stents placed and later removed in bilateral kidneys. Past Anesthesia/Blood Transfusion Reactions: No Reported Reaction Additional Past Anesthesia/Blood Transfusion Reaction / Comment(s): No blood transfusions Past Psychological History: Anxiety Smoking Status: Former smoker - Past Family History Mother Family Medical History: No Reported History Father Family Medical History: No Reported History General Exam General appearance: alert, in no apparent distress Head exam: Present: atraumatic, normocephalic, normal inspection Eye exam: Present: normal appearance, PERRL, EOMI. Absent: scleral icterus, conjunctival injection, periorbital swelling ENT exam: Present: normal exam, mucous membranes moist Neck exam: Present: normal inspection. Absent: tenderness, meningismus, lymphadenopathy Respiratory exam: Present: normal lung sounds bilaterally. Absent: respiratory distress, wheezes, rales, rhonchi, stridor Cardiovascular Exam: Present: regular rate, normal rhythm, normal heart sounds. Absent: systolic murmur, diastolic murmur, rubs, gallop, clicks GI/Abdominal exam: Present: soft, normal bowel sounds. Absent: distended, tenderness, guarding, rebound, rigid Extremities exam: Present: normal inspection, full ROM, normal capillary refill. Absent: tenderness, pedal edema, joint swelling, calf tenderness Back exam: Present: CVA tenderness (R). Absent: rash noted Neurological exam: Present: alert, oriented X3, CN II-XII intact Psychiatric exam: Present: normal affect, normal mood Skin exam: Present: warm, dry, intact, normal color. Absent: rash Course Vital Signs 05/02/22 05/02/22 05/02/22 15:50 16:40 18:54 Temperature 98.2 F 98.6 F Pulse Rate 79 72 80 Respiratory 18 16 16 Rate Blood Pressure 156/113 175/100 164/100 O2 Sat by Pulse 96 96 98 Oximetry 05/02/22 20:46 Temperature Pulse Rate 74 Respiratory 17 Rate Blood Pressure 162/95 O2 Sat by Pulse 92 L Oximetry Medical Decision Making - Medical Decision Making Upon arrival patient was placed into room 21. A thorough history and physical exam was performed. IV is established and laboratory studies are conducted. Patient was given a dose of Dilaudid and Toradol for pain control. Laboratory studies are reviewed and are within normal limits. Urinalysis does not demonstrate any blood. KUB and ultrasound are performed. KUB demonstrates possible left renal calculus. Ultrasound demonstrates possible 7 mm calculus interpole right kidney. No [place]. Patient continues to have 6 out of 10 pain. I called and spoke with Dr. Shaffer who was agreeable to obstipation overnight. I did speak with the patient regards to this however she feels comfortable going home and informed him that I do not understand the etiology of her pain at this time. I can place her on a higher dose of her Ray. She needs to call and make an appointment with the urologist in office. Return for any new or worsening symptoms. Patient was agreeable to this plan and was discharged home in stable condition - Lab Data Result diagrams: 05/02/22 18:42 05/02/22 18:42 Lab Results 05/02/22 05/02/22 05/02/22 Range/Units 16:39 18:42 18:42 WBC 8.2 (3.8-10.6) k/uL RBC 5.01 (3.80-5.40) m/uL Hgb 13.6 (11.4-16.0) gm/dL Hct 42.7 (34.0-46.0) % MCV 85.3 (80.0-100.0) fL MCH 27.1 (25.0-35.0) pg MCHC 31.8 (31.0-37.0) g/dL RDW 13.1 (11.5-15.5) % Plt Count 272 (150-450) k/uL MPV 7.4 Neutrophils % 51 % Lymphocytes % 36 % Monocytes % 8 % Eosinophils % 2 % Basophils % 1 % Neutrophils # 4.1 (1.3-7.7) k/uL Lymphocytes # 2.9 (1.0-4.8) k/uL Monocytes # 0.6 (0-1.0) k/uL Eosinophils # 0.2 (0-0.7) k/uL Basophils # 0.1 (0-0.2) k/uL Sodium 139 (137-145) mmol/L Potassium 4.6 (3.5-5.1) mmol/L Chloride 103 (98-107) mmol/L Carbon Dioxide 23 (22-30) mmol/L Anion Gap 13 mmol/L BUN 16 (7-17) mg/dL Creatinine 0.83 (0.52-1.04) mg/dL Est GFR (CKD-EPI)AfAm >90 (>60 ml/min/1.73 sqM) Est GFR (CKD-EPI)NonAf 85 (>60 ml/min/1.73 sqM) Glucose 80 (74-99) mg/dL Calcium 9.5 (8.4-10.2) mg/dL Total Bilirubin 0.8 (0.2-1.3) mg/dL AST 41 H (14-36) U/L ALT 35 H (4-34) U/L Alkaline Phosphatase 70 (38-126) U/L Total Protein 7.6 (6.3-8.2) g/dL Albumin 4.6 (3.5-5.0) g/dL Urine Color Yellow Urine Appearance Clear (Clear) Urine pH 5.5 (5.0-8.0) Ur Specific [place] 1.021 (1.001-1.035) Urine Protein Trace H (Negative) Urine Glucose (UA) Negative (Negative) Urine Ketones 1+ H (Negative) Urine Blood Negative (Negative) Urine Nitrite Negative (Negative) Urine Bilirubin Negative (Negative) Urine Urobilinogen <2.0 (<2.0) mg/dL Ur Leukocyte Esterase Negative (Negative) Disposition Clinical Impression: Right flank pain Disposition: HOME SELF-CARE Condition: Stable Instructions (If sedation given, give patient instructions): Flank Pain (ED) Additional Instructions: Please follow up with Dr. Amato. Return for any new or worsening symptoms Prescriptions: HYDROcodone/APAP 10-325MG [Ray 10-325] 1 tab PO Q4HR PRN #18 tab PRN Reason: pain Is patient prescribed a controlled substance at d/c from ED?: Yes When asked, does pt state using other controlled substances?: No If prescribed controlled substance>3 days was MAPS reviewed?: Prescribed <3 Days Referrals: Telma Aparicio DO [Primary Care Provider] - 1-2 days Grupo Bingham MD [STAFF PHYSICIAN] - 1-2 days Time of Disposition: 20:11
[2022-05-02 20:49] VITALS: BP 162/95; PULSE 74; RESP 17
== END 2022-05-02 20:48 | disposition home or self-care (01) ==
LOC: EC 15:09
DX: N20.0 Calculus of kidney (principal); N28.1 Cyst of kidney, acquired; I10 Essential (primary) hypertension; Z87.891 Personal history of nicotine dependence; Z90.49 Acquired absence of other specified parts of digestive tract; Z79.899 Other long term (current) drug therapy
CPT/HCPCS: 36415; 80053; 85025; 81003; 74018; 76770; 99284; 96374; 96375; J2405; J1170; J1885

== ENCOUNTER 2022-05-29 08:23 | Day surgery (SDC) | payer BC ==
--- NOTE | 2022-05-26 06:40 | P.GSHP ---
History of Present Illness H&P Date: 05/26/22 Chief Complaint: Right flank pain The patient is a 46-year-old white female with a history of recurrent urolithiasis. Her calculi are composed of calcium oxalate dihydrate and apatite. She has recently experienced right flank pain. CT scan in June 2021 showed bilateral small renal calculi measuring up to 4 mm in size. A KUB x-ray in December 2021 showed no calculi. On 04/24/2022 she underwent right ureteroscopy. She was found to have a 4 mm right distal ureteral calculus, which was removed. However, her symptoms have persisted and she has elected to undergo ureteroscopic removal of bilateral renal calculi. - Constitutional Constitutional: Denies chills, Denies fever - Gastrointestinal Gastrointestinal: Reports nausea - Genitourinary (Female) Genitourinary: Reports flank pain, Reports hematuria, Reports kidney stones Past Medical History Past Medical History: Cancer, Hypertension Additional Past Medical History / Comment(s): Hx of and current kidney stones. Hx Uterine Cancer in 2019. History of Any Multi-Drug Resistant Organisms: None Reported Past Surgical History: Section, Cholecystectomy, Hysterectomy Additional Past Surgical History / Comment(s): Laser removal of kidney stones, stents placed and later removed in bilateral kidneys. Past Anesthesia/Blood Transfusion Reactions: No Reported Reaction Additional Past Anesthesia/Blood Transfusion Reaction / Comment(s): No blood transfusions Past Psychological History: Anxiety Smoking Status: Former smoker - Past Family History Mother Family Medical History: No Reported History Father Family Medical History: No Reported History Medications and Allergies Home Medications Medication Instructions Recorded Confirmed Type Losartan [Cozaar] 50 mg PO HS 12/21/20 05/02/22 History Anastrozole 1 mg PO HS 06/28/21 05/02/22 History Sertraline HCl [Zoloft] 100 mg PO HS 06/28/21 05/02/22 History Calcium Carbonate [Calcium] 600 mg PO HS 12/11/21 05/02/22 History Cholecalciferol (Vitamin D3) 75 mcg PO HS 12/11/21 05/02/22 History [Vitamin D3 (3000 Iu)] HYDROcodone/APAP 7.5-325MG [[place] 1 tab PO Q6HR PRN 2 Days #6 tab 04/24/22 05/02/22 Rx 7.5-325] HYDROcodone/APAP 10-325MG [[place] 1 tab PO Q4HR PRN #18 tab 05/02/22 Rx 10-325] Allergies Allergy/AdvReac Type Severity Reaction Status Date / Time No Known Allergies Allergy Verified 05/02/22 17:22 Surgical - Exam - General well developed, well nourished, no distress - Neck no masses, trachea midline - Respiratory normal respiratory effort - Abdomen Abdomen: soft, non tender, no guarding, no rigid, no rebound - Genitourinary normal external genitalia - Psychiatric oriented to time, oriented to person, oriented to place, speech is normal, memory intact Results - Imaging Abdominal x-ray: report reviewed, image reviewed CT scan - abdomen: report reviewed, image reviewed Assessment and Plan (1) Nephrolithiasis Status: Acute Code(s): N20.0 - CALCULUS OF KIDNEY SNOMED Code(s): 61379645 Plan: Cystoscopy, bilateral ureteroscopy with Holmium laser lithotripsy and possible stone basketing, bilateral ureteral stent insertion. The procedure has been reviewed in detail with the patient. She was offered alternative treatment options, including observation and ESWL.
[2022-05-27 10:40] VITALS: BMI 34.4
[~2022-05-29 08:23] MED LIST changes: +LACTATED RINGERS 1,000 ML IV SCH
--- NOTE | 2022-05-29 09:05 | XR ---
KUB HISTORY: Right-sided kidney stone, preop Frontal KUB on 3 images correlated to prior exam 05/02/2022 No significant interval change. There are indeterminate calcifications within the pelvis. Surgical cl ips present right upper quadrant. Overlying bowel gas may obscure detail. There is a calcification king perimposed over the left kidney measuring proximately 5 x 1 mm. Punctate calcification possibly on th e upper pole region of the left kidney, possibly right kidney. Impression: Bilateral nephrolithiasis suspected
[2022-05-29] MEDS ORDERED: LIDOCAINE 1% (10MG/ML) FOR IV START IV ONE (09:13)
[2022-05-29] MEDS ORDERED: LIDOCAINE 2% INJ 20 MG/ML (2 ML VIAL) ONE (10:53)
[2022-05-29] MEDS ORDERED: MIDAZOLAM 2 MG/2 ML VIAL ONE (10:53)
[2022-05-29] MEDS ORDERED: fentaNYL (PF) 50 MCG/ML 2 ML AMP ONE (10:53)
[2022-05-29] MEDS ORDERED: PHENYLEPHRINE-0.9% NACL SYG 1,000 MCG/10 ML SYRINGE ONE (10:53)
[2022-05-29] MEDS ORDERED: PROPOFOL 10 MG/ML 20 ML VIAL IV ONE (10:53)
[2022-05-29] MEDS ORDERED: NEOSTIGMINE 1 MG/ML 10 ML VIAL ONE (10:53)
[2022-05-29] MEDS ORDERED: GLYCOPYRROLATE 0.2 MG/ML 2 ML VIAL ONE (10:53)
[2022-05-29] MEDS ORDERED: ROCURONIUM 10 MG/ML (5 ML VIAL) IV ONE (10:53)
[2022-05-29] MEDS ORDERED: SUCCINYLCHOLINE CHLORIDE 200 MG/10 ML VIAL IV ONE (10:53)
[2022-05-29] MEDS ORDERED: IOPAMIDOL-370 50ML BTL MISCELLANE ONE (11:35)
[2022-05-29] MEDS ORDERED: LACTATED RINGERS 1,000 ML IV ONE (12:28)
[2022-05-29 13:22] VITALS: TEMP 98.3
--- NOTE | 2022-05-29 13:47 | FL ---
Fluoroscopy HISTORY: ureteral stent placement 33 seconds fluoroscopy time supplied to the referring clinician. 4 intraoperative C-arm images docum ent the procedure. See dictated report from urology.
[2022-05-29] MEDS ORDERED: HYDROcodone/APAP 5-325MG 1 EACH TAB ONE (14:11)
[2022-05-29 14:26] VITALS: BP 133/81; PULSE 79; RESP 16
--- NOTE | 2022-05-31 05:47 | P.OP ---
Date of Procedure: 05/29/22 Preoperative Diagnosis: Bilateral renal calculi Postoperative Diagnosis: Same Procedure(s) Performed: Cystoscopy, bilateral retrograde pyelogram, bilateral ureteroscopy with Holmium laser lithotripsy and stone basketing, bilateral ureteral stent insertion Anesthesia: VENKATA Surgeon: Grupo Bingham Estimated Blood Loss (ml): 10 IV fluids (ml): 1,100 Pathology: none sent Condition: stable Disposition: PACU Indications for Procedure: The patient is a 46-year-old white female with a history of recurrent urolithiasis. Her calculi are composed of calcium oxalate dihydrate and apatite. She has recently experienced right flank pain. CT scan in June 2021 showed bilateral small renal calculi measuring up to 4 mm in size. A KUB x-ray in December 2021 showed no calculi. On 04/24/2022 she underwent right ureteroscopy. She was found to have a 4 mm right distal ureteral calculus, which was removed. However, her symptoms have persisted and she has elected to undergo ureteroscopic removal of bilateral renal calculi. Operative Findings: Bilateral small renal calculi, many adherent to the mucosa, successfully lasered and removed via stone basketing. Description of Procedure: The patient was taken to the operating room and placed in the dorsolithotomy position, with legs supported in Jorge stirrups. The external genitalia was prepped and draped sterilely. The 30 lens was used to introduce the 21-Armenian Mcguire cystoscopic sheath through the urethra and into the bladder under direct vision. The bladder was examined in its entirety. Both ureteral orifices were normal anatomic location and configuration, and clear urine effluxed from both. No tumors or foreign bodies were seen. Using a 10-Armenian cone-tipped catheter, bilateral retrograde pyelograms were performed. The course of each ureter appeared normal. There were no filling defects or calculi seen, and no evidence of hydronephrosis. A 0.035 inch Glidewire was passed through the cystoscope. The right ureteral orifice was cannulated, and the Glidewire was advanced up to the renal pelvis. The cystoscope was removed, and an 11/13-Armenian ureteral access catheter was passed over the wire, up to the proximal ureter. The flexible ureteroscope was then passed through the ureteral access catheter sheath and up to the right renal pelvis. The 200 micron Holmium laser probe was passed through the ureteroscope, and each calyx was examined. Any calculi encountered were lasered and removed using a 1.5-Armenian 0 tip basket. Multiple calculi measuring up to 4-5 mm were seen and removed. Most were adherent to the mucosa. In these instances, laser lithotripsy was utilized to fragment the calculi and detach them from the mucosa, at which point they were removed via stone basketing. Within the mid pole, a stenotic infundibulum was identified. This was incised using the laser to allow the calyx to be examined. That calyx did not contain any calculi. Once the procedure was completed on the right side, an identical procedure was performed of the left. Again, multiple calculi were encountered, the majority of which were adherent to the mucosa. There was no evidence of infundibular stenosis on the left side. On the right side, the majority of the calculi were located within an upper pole calyx, whereas on the left side the majority of the calculi were located within a lower pole calyx. After all calculi had been successfully removed, and pullout ureteroscopy confirmed the absence of ureteral injury, the cystoscope was replaced into the bladder and a 6-Armenian, 24 cm double-J ureteral stents were placed in the standard fashion bilaterally. Proper stent positioning was verified fluoroscopically and endoscopically. The bladder was emptied and the cystoscope removed. The patient tolerated the proc edure well and was taken to the recovery room in stable condition. [facility] Report: Procedure Acuity: Elective Stone Size and Location: Multiple bilateral renal calculi measuring up to 5 mm Ureteral Dilation: No Ureteral Access Sheath Used: Yes Stone Sent for Analysis: No All Stones/Fragments Were Removed with a Basket: Yes Complications: No Preoperative Antibiotics Given: Yes Stent Placed: Yes If Stent Placed, Was String Left Attached: No If Stent Placed, When is it to be Removed: 1 week Discharge Medications: Detrol [place], tamsulosin, Toradol, [place]
== END 2022-05-29 14:48 | disposition home or self-care (01) ==
LOC: OR 08:23
PROVIDERS: ATTEND Urology
DX: N20.0 Calculus of kidney (principal); I10 Essential (primary) hypertension; K21.9 Gastro-esophageal reflux disease without esophagitis; Z85.42 Personal history of malignant neoplasm of other parts of uterus; Z90.49 Acquired absence of other specified parts of digestive tract; Z90.710 Acquired absence of both cervix and uterus; F41.9 Anxiety disorder, unspecified; Z87.891 Personal history of nicotine dependence; Z87.442 Personal history of urinary calculi; Z79.899 Other long term (current) drug therapy
CPT/HCPCS: 74018; 52356; C1758; C1769; J2250; J0330; J1100; J2710; J0690; J2405; J3010; J2370; J2704; Q9967; J2001

== ENCOUNTER → 2022-07-04 | Outpatient (CLI) | payer BC ==
--- NOTE | 2022-07-04 16:11 | US ---
EXAMINATION TYPE: US kidneys/renal and bladder DATE OF EXAM: 07/04/2022 COMPARISON: US, KUB CLINICAL HISTORY: N20.0 CALCULUS OF KIDNEY. H/O renal stones, F/U EXAM MEASUREMENTS: Right Kidney: 12.4 x 4.6 x 5.1 cm Left Kidney: 13.2 x 6.0 x 6.1 cm Right Kidney: wnl Left Kidney: No evidence of hydro, possible calculi scattered near mid portion of kidney, 5mm in size / simple cyst mid= 2.8 x 2.4 x 3.7 cm Bladder: wnl Bilateral Jets seen: No IMPRESSION: 1. Simple cyst left mid kidney. 2. Nonobstructing renal stones left kidney.
== END | disposition home or self-care (01) ==
LOC: RADUSWWP 15:23
PROVIDERS: ATTEND Urology
DX: N20.0 Calculus of kidney (principal); N28.1 Cyst of kidney, acquired
CPT/HCPCS: 76770

== ENCOUNTER → 2023-04-13 | Outpatient (CLI) | payer BC ==
--- NOTE | 2023-04-13 11:21 | XR ---
EXAMINATION TYPE: XR KUB DATE OF EXAM: 04/13/2023 HISTORY: Pain Comparison: 05/29/22 Single KUB is submitted for interpretation. Findings: Right renal calculi: None Visualized. Right ureteral calculi: None Visualized. Left renal calculi: None Visualized. Left ureteral calculi: None Visualized. Pelvic calcifications: Multiple pelvic phleboliths are noted. Bowel gas pattern is unremarkable. No free air. No mass effects. IMPRESSION: 1. No discrete radiopaque calculi seen with certainty at this time.
== END | disposition home or self-care (01) ==
LOC: RADXRMAIN 10:42
PROVIDERS: ATTEND Urology
DX: N20.0 Calculus of kidney (principal)
CPT/HCPCS: 74018

== ENCOUNTER 2023-06-11 09:41 | Emergency (ER) | payer BC ==
[2023-06-11 10:15] VITALS: BP 175/88; PULSE 106; RESP 18; TEMP 98.7
[2023-06-11] MEDS ORDERED: MORPHINE SULFATE 4 MG/ML SYRINGE IVP STA (14:12)
[2023-06-11] MEDS ORDERED: SODIUM CHLORIDE 0.9% 1,000 ML IV ONE (14:12)
[2023-06-11] MEDS ORDERED: ONDANSETRON 4 MG/2 ML VIAL IVP STA (14:12)
[2023-06-11 14:19] LABS: Basophils % (A) 1 %; Eosinophils # (A) 0.1 k/uL (0-0.7); Eosinophils % (A) 1 %; HGB 13.9 gm/dL (11.4-16.0); Hypochromasia Slight; Lymphocytes # (A) 2.2 k/uL (1.0-4.8); Lymphocytes % (A) 27 %; MCH 27.7 pg (25.0-35.0); MCHC 31.6 g/dL (31.0-37.0); MCV 87.6 fL (80.0-100.0); Mean Platelet Volume 7.4; Monocytes # (A) 0.4 k/uL (0-1.0); Monocytes % (A) 5 %; Neutrophils # (A) 5.2 k/uL (1.3-7.7); Neutrophils % (A) 63 %; Platelet Count 256 k/uL (150-450); RBC 5.02 m/uL (3.80-5.40); RDW 15.2 % (11.5-15.5); WBC 8.2 k/uL (3.8-10.6)
--- NOTE | 2023-06-11 14:33 | ED ---
General Adult HPI - General Chief complaint: ENT Stated complaint: nerve pain and vomiting has cancer Source: patient Mode of arrival: ambulatory Limitations: no limitations - History of Present Illness Initial comments: 47-year-old female presents emergency department reporting to cough, congestion and right-sided flank pain. She states that she is currently undergoing immuno therapy for uterine cancer. She does take chronic pain medications for back pain. States that today she was having symptoms of an upper respiratory infection. She was at work and felt as if she was choking on her. She was having in her right flank. She could not take any of her pain medications that she had to go to work today. States his this she was being overwhelmed with her symptoms and therefore came into the emergency room for evaluation. She denies any chest pain or shortness of breath. No productive cough. 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 - Related Data Home Medications Medication Instructions Recorded Confirmed Losartan [Cozaar] 50 mg PO DAILY 12/21/20 06/11/23 DULoxetine HCL [Cymbalta] 30 mg PO BID 06/11/23 06/11/23 Gabapentin [Neurontin] 300 mg PO TID 06/11/23 06/11/23 Ondansetron [Zofran] 4 mg PO Q6H PRN 06/11/23 06/11/23 Pantoprazole [Protonix] 40 mg PO BID 06/11/23 06/11/23 Prochlorperazine [Compazine] 10 mg PO TID PRN 06/11/23 06/11/23 Sennosides [Senokot] 8.6 mg PO DAILY 06/11/23 06/11/23 methocarbamoL [Robaxin-750] 750 - 1,500 mg PO QID 06/11/23 06/11/23 oxyCODONE HCL [oxyCODONE HCL (IR)] 10 mg PO TID PRN 06/11/23 06/11/23 Allergies Allergy/AdvReac Type Severity Reaction Status Date / Time No Known Allergies Allergy Verified 06/11/23 14:21 Review of Systems ROS Statement: Those systems with pertinent positive or pertinent negative responses have been documented in the HPI. ROS Other: All systems not noted in ROS Statement are negative. Past Medical History Past Medical History: Cancer, Hypertension Additional Past Medical History / Comment(s): Hx of and current kidney stones. Hx Uterine Cancer in 2020. History of Any Multi-Drug Resistant Organisms: None Reported Past Surgical History: Section, Cholecystectomy, Hysterectomy Additional Past Surgical History / Comment(s): Laser removal of kidney stones, stents placed and later removed in bilateral kidneys. Past Anesthesia/Blood Transfusion Reactions: No Reported Reaction Additional Past Anesthesia/Blood Transfusion Reaction / Comment(s): No blood transfusions Past Psychological History: Anxiety Smoking Status: Former smoker - Past Family History Mother Family Medical History: No Reported History Father Family Medical History: No Reported History General Exam Limitations: no limitations General appearance: alert, in no apparent distress Head exam: Present: atraumatic, normocephalic, normal inspection Eye exam: Present: normal appearance, PERRL, EOMI. Absent: scleral icterus, conjunctival injection, periorbital swelling ENT exam: Present: normal exam, mucous membranes moist Neck exam: Present: normal inspection. Absent: tenderness, meningismus, lymphadenopathy Respiratory exam: Present: normal lung sounds bilaterally. Absent: respiratory distress, wheezes, rales, rhonchi, stridor Cardiovascular Exam: Present: regular rate, normal rhythm, normal heart sounds. Absent: systolic murmur, diastolic murmur, rubs, gallop, clicks GI/Abdominal exam: Present: soft, normal bowel sounds. Absent: distended, tenderness, guarding, rebound, rigid Extremities exam: Present: normal inspection, full ROM, normal capillary refill. Absent: tenderness, pedal edema, joint swelling, calf tenderness Back exam: Present: normal inspection Neurological exam: Present: alert, oriented X3, CN II-XII intact Psychiatric exam: Present: normal affect, normal mood Skin exam: Present: warm, dry, intact, normal color. Absent: rash Course Vital Signs 06/11/23 10:06 Temperature 98.7 F Pulse Rate 106 H Respiratory 18 Rate Blood Pressure 175/88 O2 Sat by Pulse 96 Oximetry Medical Decision Making - Medical Decision Making Was pt. sent in by a medical professional or institution (, PA, MEDIA REPORTER, urgent care, hospital, or assisted...) When possible be specific @ -No Did you speak to anyone other than the patient for history (EMS, parent, family, police, friend...)? What history was obtained from this source @ -No Did you review nursing and triage notes (agree or disagree)? Why? @ -I reviewed and agree with nursing and triage notes Were old charts reviewed (outside hosp., previous admission, EMS record, old EKG, old radiological studies, urgent care reports/EKG's, assisted records)? Report findings @ -No old charts were reviewed Differential Diagnosis (chest pain, altered mental status, abdominal pain women, abdominal pain men, vaginal bleeding, weakness, fever, dyspnea, syncope, headache, dizziness, GI bleed, back pain, seizure, CVA, palpatations, mental health, musculoskeletal)? @ -Covid, influenza, UTI EKG interpreted by me (3pts min.). @ -Yes and demonstrates sinus rhythm with a rate of 90. UT interval 177. QRS 94. QTC of 406. No acute ST segment elevations or depressions X-rays interpreted by me (1pt min.). @ -None done CT interpreted by me (1pt min.). @ -None done U/S interpreted by me (1pt. min.). @ -None done What testing was considered but not performed or refused? (CT, X-rays, U/S, labs)? Why? @ -None What meds were considered but not given or refused? Why? @ -None Did you discuss the management of the patient with other professionals (professionals i.e. , PA, MEDIA REPORTER, lab, RT, psych nurse, social service agency director, divorce lawyer, teacher, agricultural extension officer, heel caser)? Give summary @ -No Was smoking cessation discussed for >3mins.? @ -No Was critical care preformed (if so, how long)? @ -No Were there social determinants of health that impacted care today? How? (Homelessness, low income, unemployed, alcoholism, drug addiction, transportation, low edu. Level, literacy, decrease access to med. care, care home, rehab)? @ -No Was there de-escalation of care discussed even if they declined (Discuss DNR or withdrawal of care, Hospice)? DNR status @ -No What co-morbidities impacted this encounter? (DM, HTN, Smoking, COPD, CAD, Cancer, CVA, ARF, Chemo, Hep., AIDS, mental health diagnosis, sleep apnea, morbid obesity)? @ -Uterine cancer on immunotherapy Was patient admitted / discharged? Hospital course, mention meds given and route, prescriptions, significant lab abnormalities, going to OR and other pertinent info. @ -Discharged. Upon arrival patient is placed into room 31. Thorough history and physical exam was performed. IV is established. Patient is given pain medications. Laboratory studies are conducted. Patient reevaluated and reports that she feels improved in her symptoms. I discussed diagnosis, differential and treatment options. Patient feels comfortable with discharge home at this time. Instructed to resume her home medications. Follow-up with her primary care doctor and return for any new or worsening symptoms. Patient agreeable to plan and discharge in stable condition Undiagnosed new problem with uncertain prognosis? @ -No Drug Therapy requiring intensive monitoring for toxicity (Heparin, Nitro, Insulin, Cardizem)? @ -No Were any procedures done? @ -No Diagnosis/symptom? @ -Acute upper respiratory infection, acute exacerbation of chronic right flank pain Acute, or Chronic, or Acute on Chronic? @ -Acute on chronic Uncomplicated (without systemic symptoms) or Complicated (systemic symptoms)? @ -Complicated Side effects of treatment? @ -No Exacerbation, Progression, or Severe Exacerbation? @ -No Poses a threat to life or bodily function? How? (Chest pain, [place], [place], pneumonia, PE, COPD, DKA, ARF, appy, cholecystitis, CVA, Diverticulitis, Homicidal, Suicidal, threat to staff... and all critical care pts) @ -No - Lab Data Result diagrams: 06/11/23 13:28 06/11/23 13:28 Lab Results 06/11/23 06/11/23 06/11/23 Range/Units 13:28 13:28 13:28 WBC 8.2 (3.8-10.6) k/uL RBC 5.02 (3.80-5.40) m/uL Hgb 13.9 (11.4-16.0) gm/dL Hct 44.0 (34.0-46.0) % MCV 87.6 (80.0-100.0) fL MCH 27.7 (25.0-35.0) pg MCHC 31.6 (31.0-37.0) g/dL RDW 15.2 (11.5-15.5) % Plt Count 256 (150-450) k/uL MPV 7.4 Neutrophils % 63 % Lymphocytes % 27 % Monocytes % 5 % Eosinophils % 1 % Basophils % 1 % Neutrophils # 5.2 (1.3-7.7) k/uL Lymphocytes # 2.2 (1.0-4.8) k/uL Monocytes # 0.4 (0-1.0) k/uL Eosinophils # 0.1 (0-0.7) k/uL Basophils # 0.0 (0-0.2) k/uL Hypochromasia Slight Sodium 142 (137-145) mmol/L Potassium 4.3 (3.5-5.1) mmol/L Chloride 104 (98-107) mmol/L Carbon Dioxide 26 (22-30) mmol/L Anion Gap 12 mmol/L BUN 14 (7-17) mg/dL Creatinine 0.88 (0.52-1.04) mg/dL Est GFR (CKD-EPI)AfAm >90 (>60 ml/min/1.73 sqM) Est GFR (CKD-EPI)NonAf 79 (>60 ml/min/1.73 sqM) Glucose 89 (74-99) mg/dL Plasma Lactic Acid Anthony (0.7-2.0) mmol/L Calcium 9.8 (8.4-10.2) mg/dL Magnesium 1.7 (1.6-2.3) mg/dL Total Bilirubin 0.4 (0.2-1.3) mg/dL AST 32 (14-36) U/L ALT 33 (4-34) U/L Alkaline Phosphatase 86 (38-126) U/L Total Protein 7.7 (6.3-8.2) g/dL Albumin 4.5 (3.5-5.0) g/dL Urine Color Colorless Urine Appearance Clear (Clear) Urine pH 7.5 (5.0-8.0) Ur Specific [place] 1.013 (1.001-1.035) Urine Protein Negative (Negative) Urine Glucose (UA) Negative (Negative) Urine Ketones Negative (Negative) Urine Blood Negative (Negative) Urine Nitrite Negative (Negative) Urine Bilirubin Negative (Negative) Urine Urobilinogen <2.0 (<2.0) mg/dL Ur Leukocyte Esterase Negative (Negative) Influenza Type A (PCR) (Not Detectd) Influenza Type B (PCR) (Not Detectd) RSV (PCR) (Not Detectd) SARS-CoV-2 (PCR) (Not Detectd) Group A Strep (PCR) (Not Detectd) 06/11/23 06/11/23 06/11/23 Range/Units 13:28 13:28 14:16 WBC (3.8-10.6) k/uL RBC (3.80-5.40) m/uL Hgb (11.4-16.0) gm/dL Hct (34.0-46.0) % MCV (80.0-100.0) fL MCH (25.0-35.0) pg MCHC (31.0-37.0) g/dL RDW (11.5-15.5) % Plt Count (150-450) k/uL MPV Neutrophils % % Lymphocytes % % Monocytes % % Eosinophils % % Basophils % % Neutrophils # (1.3-7.7) k/uL Lymphocytes # (1.0-4.8) k/uL Monocytes # (0-1.0) k/uL Eosinophils # (0-0.7) k/uL Basophils # (0-0.2) k/uL Hypochromasia Sodium (137-145) mmol/L Potassium (3.5-5.1) mmol/L Chloride (98-107) mmol/L Carbon Dioxide (22-30) mmol/L Anion Gap mmol/L BUN (7-17) mg/dL Creatinine (0.52-1.04) mg/dL Est GFR (CKD-EPI)AfAm (>60 ml/min/1.73 sqM) Est GFR (CKD-EPI)NonAf (>60 ml/min/1.73 sqM) Glucose (74-99) mg/dL Plasma Lactic Acid Anthony 1.3 (0.7-2.0) mmol/L Calcium (8.4-10.2) mg/dL Magnesium (1.6-2.3) mg/dL Total Bilirubin (0.2-1.3) mg/dL AST (14-36) U/L ALT (4-34) U/L Alkaline Phosphatase (38-126) U/L Total Protein (6.3-8.2) g/dL Albumin (3.5-5.0) g/dL Urine Color Urine Appearance (Clear) Urine pH (5.0-8.0) Ur Specific [place] (1.001-1.035) Urine Protein (Negative) Urine Glucose (UA) (Negative) Urine Ketones (Negative) Urine Blood (Negative) Urine Nitrite (Negative) Urine Bilirubin (Negative) Urine Urobilinogen (<2.0) mg/dL Ur Leukocyte Esterase (Negative) Influenza Type A (PCR) Not Detected (Not Detectd) Influenza Type B (PCR) Not Detected (Not Detectd) RSV (PCR) Not Detected (Not Detectd) SARS-CoV-2 (PCR) Not Detected (Not Detectd) Group A Strep (PCR) NOT DETECTED (Not Detectd) Disposition Clinical Impression: URI (upper respiratory infection), Right flank pain Disposition: HOME SELF-CARE Condition: Stable Instructions (If sedation given, give patient instructions): Upper Respiratory Infection (ED) Additional Instructions: Please follow-up with your oncologist and return for any new or worsening symptoms Is patient prescribed a controlled substance at d/c from ED?: No Referrals: Telma Aparicio DO [Primary Care Provider] - 1-2 days Time of Disposition: 16:00
[2023-06-11 14:41] LABS: Appearance,Urine Clear (Clear); Bilirubin,Urine Negative (Negative); Blood,Urine Negative (Negative); Color,Urine Colorless; Glucose,Urine (UA) Negative (Negative); Ketones,Urine Negative (Negative); Leukocyte Esterase,Urine Negative (Negative); Nitrite,Urine Negative (Negative); PH, Urine 7.5 (5.0-8.0); Protein,Urine Negative (Negative); Specific Gravity,Urine 1.013 (1.001-1.035); Urobilinogen,Urine <2.0 mg/dL (<2.0)
[2023-06-11 14:48] LABS: ALT 33 U/L (4-34); AST 32 U/L (14-36); African American GFR (CKD) >90 (>60 ml/min/1.73 sqM); Albumin 4.5 g/dL (3.5-5.0); Alkaline Phosphatase 86 U/L (38-126); Anion Gap 12 mmol/L; Blood Urea Nitrogen 14 mg/dL (7-17); Calcium 9.8 mg/dL (8.4-10.2); Carbon Dioxide 26 mmol/L (22-30); Chloride 104 mmol/L (98-107); Glucose 89 mg/dL (74-99); Magnesium 1.7 mg/dL (1.6-2.3); Non-African American GFR(CKD) 79 (>60 ml/min/1.73 sqM); Potassium 4.3 mmol/L (3.5-5.1); Sodium 142 mmol/L (137-145); Total Bilirubin 0.4 mg/dL (0.2-1.3); Total Protein 7.7 g/dL (6.3-8.2)
[2023-06-11] MEDS ORDERED: DEXAMETHASONE SOD PHOSPHATE 10 MG/ML 1 ML VIAL IVP STA (15:47)
== END 2023-06-11 16:12 | disposition home or self-care (01) ==
LOC: EC 09:41
DX: J06.9 Acute upper respiratory infection, unspecified (principal); R10.31 Right lower quadrant pain; I10 Essential (primary) hypertension; F41.9 Anxiety disorder, unspecified; Z87.891 Personal history of nicotine dependence; Z90.49 Acquired absence of other specified parts of digestive tract; Z79.899 Other long term (current) drug therapy; Z20.822 Contact with and (suspected) exposure to COVID-19
CPT/HCPCS: 36415; 93005; 87651; 80053; 83605; 83735; 85025; 81003; 87636; 99284; 96374; 96375 ×2; 96361; J2270; J1100; J2405

== ENCOUNTER 2023-09-19 10:46 | Emergency (ER) | payer BC ==
--- NOTE | 2023-09-19 11:49 | ED ---
General Adult HPI - General Chief complaint: Back Pain/Injury Stated complaint: LENIN,back pain Time Seen by Provider: 09/19/23 11:22 Source: patient, RN notes reviewed Mode of arrival: ambulatory Limitations: no limitations - History of Present Illness Initial comments: 48-year-old female presents to the emergency department for evaluation of right-sided flank pain. She also admits to dysuria and hematuria. Symptoms have been going on for 5 days. Patient reports a history of kidney stones. She also reports history of uterine cancer with mets to the abdomen. She follows in [place] for this. Denies recent fever, chills, nausea, vomiting. - Related Data Home Medications Medication Instructions Recorded Confirmed Losartan [Cozaar] 50 mg PO DAILY 12/21/20 06/11/23 DULoxetine HCL [Cymbalta] 30 mg PO BID 06/11/23 06/11/23 Gabapentin [Neurontin] 300 mg PO TID 06/11/23 06/11/23 Ondansetron [Zofran] 4 mg PO Q6H PRN 06/11/23 06/11/23 Pantoprazole [Protonix] 40 mg PO BID 06/11/23 06/11/23 Prochlorperazine [Compazine] 10 mg PO TID PRN 06/11/23 06/11/23 Sennosides [Senokot] 8.6 mg PO DAILY 06/11/23 06/11/23 methocarbamoL [Robaxin-750] 750 - 1,500 mg PO QID 06/11/23 06/11/23 oxyCODONE HCL [oxyCODONE HCL (IR)] 10 mg PO TID PRN 06/11/23 06/11/23 Allergies Allergy/AdvReac Type Severity Reaction Status Date / Time paclitaxel Allergy Unknown Verified 09/19/23 10:55 Review of Systems ROS Statement: Those systems with pertinent positive or pertinent negative responses have been documented in the HPI. ROS Other: All systems not noted in ROS Statement are negative. Past Medical History Past Medical History: Cancer, Hypertension Additional Past Medical History / Comment(s): Hx of and current kidney stones. Hx Uterine Cancer in 2019. History of Any Multi-Drug Resistant Organisms: None Reported Past Surgical History: Section, Cholecystectomy, Hysterectomy Additional Past Surgical History / Comment(s): Laser removal of kidney stones, stents placed and later removed in bilateral kidneys. Past Anesthesia/Blood Transfusion Reactions: No Reported Reaction Additional Past Anesthesia/Blood Transfusion Reaction / Comment(s): No blood transfusions Past Psychological History: Anxiety Smoking Status: Former smoker Past Alcohol Use History: Occasional Past Drug Use History: Marijuana - Past Family History Mother Family Medical History: No Reported History Father Family Medical History: No Reported History General Exam Limitations: no limitations General appearance: alert, in no apparent distress Head exam: Present: atraumatic, normocephalic, normal inspection Eye exam: Present: normal appearance, PERRL, EOMI. Absent: scleral icterus, conjunctival injection, periorbital swelling ENT exam: Present: normal exam, mucous membranes moist Neck exam: Present: normal inspection. Absent: tenderness, meningismus, lymphadenopathy Respiratory exam: Present: normal lung sounds bilaterally. Absent: respiratory distress, wheezes, rales, rhonchi, stridor Cardiovascular Exam: Present: regular rate, normal rhythm, normal heart sounds. Absent: systolic murmur, diastolic murmur, rubs, gallop, clicks GI/Abdominal exam: Present: soft, normal bowel sounds. Absent: distended, tenderness, guarding, rebound, rigid Extremities exam: Present: normal inspection, full ROM, normal capillary refill. Absent: tenderness, pedal edema, joint swelling, calf tenderness Back exam: Present: normal inspection. Absent: CVA tenderness (R), CVA tenderness (L) Neurological exam: Present: alert, oriented X3, CN II-XII intact Psychiatric exam: Present: normal affect, normal mood Skin exam: Present: warm, dry, intact, normal color. Absent: rash Course Vital Signs 09/19/23 09/19/23 10:48 15:15 Temperature 98.2 F 98.9 F Pulse Rate 120 H 70 Respiratory 22 16 Rate Blood Pressure 139/83 170/59 O2 Sat by Pulse 97 98 Oximetry Medical Decision Making - Medical Decision Making Was pt. sent in by a medical professional or institution (, PA, LODGING FACILITIES ATTENDANT, urgent care, hospital, or halfway...) When possible be specific @ -No Did you speak to anyone other than the patient for history (EMS, parent, family, police, friend...)? What history was obtained from this source @ -No Did you review nursing and triage notes (agree or disagree)? Why? @ -I reviewed and agree with nursing and triage notes Were old charts reviewed (outside hosp., previous admission, EMS record, old EKG, old radiological studies, urgent care reports/EKG's, halfway records)? Report findings @ -No old charts were reviewed Differential Diagnosis (chest pain, altered mental status, abdominal pain women, abdominal pain men, vaginal bleeding, weakness, fever, dyspnea, syncope, headache, dizziness, GI bleed, back pain, seizure, CVA, palpatations, mental health, musculoskeletal)? @ -Differential Back Pain: Strain, zoster, cauda equina syndrome, epidural abscess, vertebral osteomyelitis, discitis, fracture, subluxation, disc herniation, DJD, spinal stenosis, dissection, AAA, pancreatitis, peptic ulcer disease, pyelonephritis, kidney stone, this is not meant to be an all-inclusive list. EKG interpreted by me (3pts min.). @ -None X-rays interpreted by me (1pt min.). @ -None done CT interpreted by me (1pt min.). @ -CT abdomen pelvis obtained which shows no evidence for obstructive uropathy, bilateral nonobstructing renal stones; mild dilation of right renal collecting system U/S interpreted by me (1pt. min.). @ -None done What testing was considered but not performed or refused? (CT, X-rays, U/S, labs)? Why? @ -None What meds were considered but not given or refused? Why? @ -None Did you discuss the management of the patient with other professionals (professionals i.e. , PA, LODGING FACILITIES ATTENDANT, lab, RT, psych nurse, social science instructor, 5th grade teacher, teacher, real estate utilization officer, bilingual case manager)? Give summary @ -No Was smoking cessation discussed for >3mins.? @ -No Was critical care preformed (if so, how long)? @ -No Were there social determinants of health that impacted care today? How? (Homelessness, low income, unemployed, alcoholism, drug addiction, transportation, low edu. Level, literacy, decrease access to med. care, [facility], rehab)? @ -No Was there de-escalation of care discussed even if they declined (Discuss DNR or withdrawal of care, Hospice)? DNR status @ -No What co-morbidities impacted this encounter? (DM, HTN, Smoking, COPD, CAD, Can cer, CVA, ARF, Chemo, Hep., AIDS, mental health diagnosis, sleep apnea, morbid obesity)? @ -None Was patient admitted / discharged? Hospital course, mention meds given and route, prescriptions, significant lab abnormalities, going to OR and other pertinent info. @ -Discharged. Patient presented to the emergency department for evaluation of right flank pain. CBC obtained which shows normal WBC; CMP shows mild transaminitis, creatinine 0.88; lactic acid 3.3; UA negative for blood, nitrate, leukocyte esterase; CT abd pelvis obtained which shows no evidence for obstructive uropathy, bilateral nonobstructing renal stones; mild dilation of right renal collecting system, suggesting recently passed stone. Patient provided medication for pain control in the ED. patient advised on findings of laboratory studies and CT. Patient will be discharged home. Patient understanding agreeable with plan. Patient stable at time of discharge. Case discussed with Dr. Pina Undiagnosed new problem with uncertain prognosis? @ -No Drug Therapy requiring intensive monitoring for toxicity (Heparin, Nitro, Insulin, Cardizem)? @ -No Were any procedures done? @ -No Diagnosis/symptom? @ -Flank pain Acute, or Chronic, or Acute on Chronic? @ -acute Uncomplicated (without systemic symptoms) or Complicated (systemic symptoms)? @ -uncomplicated Side effects of treatment? @ -No Exacerbation, Progression, or Severe Exacerbation? @ -No Poses a threat to life or bodily function? How? (Chest pain, [place], [place], pneumonia, PE, COPD, DKA, ARF, appy, cholecystitis, CVA, Diverticulitis, Homicidal, Suicidal, threat to staff... and all critical care pts) @ -No - Lab Data Result diagrams: 09/19/23 12:07 09/19/23 12:07 Lab Results 09/19/23 09/19/23 09/19/23 Range/Units 12:07 12:07 12:07 WBC 6.3 (3.8-10.6) k/uL RBC 6.29 H (3.80-5.40) m/uL Hgb 17.3 H (11.4-16.0) gm/dL Hct 54.7 H (34.0-46.0) % MCV 87.0 (80.0-100.0) fL MCH 27.5 (25.0-35.0) pg MCHC 31.6 (31.0-37.0) g/dL RDW 15.0 (11.5-15.5) % Plt Count 267 (150-450) k/uL MPV 7.5 Neutrophils % 62 % Lymphocytes % 30 % Monocytes % 4 % Eosinophils % 1 % Basophils % 1 % Neutrophils # 3.9 (1.3-7.7) k/uL Lymphocytes # 1.9 (1.0-4.8) k/uL Monocytes # 0.3 (0-1.0) k/uL Eosinophils # 0.1 (0-0.7) k/uL Basophils # 0.1 (0-0.2) k/uL Hypochromasia Moderate Sodium 145 (137-145) mmol/L Potassium 4.2 (3.5-5.1) mmol/L Chloride 105 (98-107) mmol/L Carbon Dioxide 26 (22-30) mmol/L Anion Gap 14 mmol/L BUN 11 (7-17) mg/dL Creatinine 0.88 (0.52-1.04) mg/dL Est GFR (CKD-EPI)AfAm >90 (>60 ml/min/1.73 sqM) Est GFR (CKD-EPI)NonAf 78 (>60 ml/min/1.73 sqM) Glucose 90 (74-99) mg/dL Lactic Ac Sepsis Rflx Plasma Lactic Acid Anthony 3.3 H* (0.7-2.0) mmol/L Calcium 10.6 H (8.4-10.2) mg/dL Total Bilirubin 0.7 (0.2-1.3) mg/dL AST 39 H (14-36) U/L ALT 47 H (4-34) U/L Alkaline Phosphatase 102 (38-126) U/L Total Protein 8.9 H (6.3-8.2) g/dL Albumin 5.1 H (3.5-5.0) g/dL Amylase 83 (30-110) U/L Lipase 235 (23-300) U/L Urine Color Urine Appearance (Clear) Urine pH (5.0-8.0) Ur Specific [place] (1.001-1.035) Urine Protein (Negative) Urine Glucose (UA) (Negative) Urine Ketones (Negative) Urine Blood (Negative) Urine Nitrite (Negative) Urine Bilirubin (Negative) Urine Urobilinogen (<2.0) mg/dL Ur Leukocyte Esterase (Negative) Urine RBC (0-5) /hpf Urine WBC (0-5) /hpf Ur Squamous Epith Cells (0-4) /hpf Urine Bacteria (None) /hpf Urine Mucus (None) /hpf 09/19/23 09/19/23 Range/Units 12:07 13:43 WBC (3.8-10.6) k/uL RBC (3.80-5.40) m/uL Hgb (11.4-16.0) gm/dL Hct (34.0-46.0) % MCV (80.0-100.0) fL MCH (25.0-35.0) pg MCHC (31.0-37.0) g/dL RDW (11.5-15.5) % Plt Count (150-450) k/uL MPV Neutrophils % % Lymphocytes % % Monocytes % % Eosinophils % % Basophils % % Neutrophils # (1.3-7.7) k/uL Lymphocytes # (1.0-4.8) k/uL Monocytes # (0-1.0) k/uL Eosinophils # (0-0.7) k/uL Basophils # (0-0.2) k/uL Hypochromasia Sodium (137-145) mmol/L Potassium (3.5-5.1) mmol/L Chloride (98-107) mmol/L Carbon Dioxide (22-30) mmol/L Anion Gap mmol/L BUN (7-17) mg/dL Creatinine (0.52-1.04) mg/dL Est GFR (CKD-EPI)AfAm (>60 ml/min/1.73 sqM) Est GFR (CKD-EPI)NonAf (>60 ml/min/1.73 sqM) Glucose (74-99) mg/dL Lactic Ac Sepsis Rflx Y Plasma Lactic Acid Anthony (0.7-2.0) mmol/L Calcium (8.4-10.2) mg/dL Total Bilirubin (0.2-1.3) mg/dL AST (14-36) U/L ALT (4-34) U/L Alkaline Phosphatase (38-126) U/L Total Protein (6.3-8.2) g/dL Albumin (3.5-5.0) g/dL Amylase (30-110) U/L Lipase (23-300) U/L Urine Color Yellow Urine Appearance Cloudy H (Clear) Urine pH 7.5 (5.0-8.0) Ur Specific [place] 1.017 (1.001-1.035) Urine Protein 1+ H (Negative) Urine Glucose (UA) Negative (Negative) Urine Ketones Negative (Negative) Urine Blood Negative (Negative) Urine Nitrite Negative (Negative) Urine Bilirubin Negative (Negative) Urine Urobilinogen <2.0 (<2.0) mg/dL Ur Leukocyte Esterase Negative (Negative) Urine RBC 1 (0-5) /hpf Urine WBC 2 (0-5) /hpf Ur Squamous Epith Cells 9 H (0-4) /hpf Urine Bacteria Many H (None) /hpf Urine Mucus Moderate H (None) /hpf Disposition Clinical Impression: Kidney stones, Flank pain Disposition: HOME SELF-CARE Condition: Stable Instructions (If sedation given, give patient instructions): Flank Pain (ED) Additional Instructions: Please follow up with your primary care provider. Return to the emergency department for new or worsening symptoms. Is patient prescribed a controlled substance at d/c from ED?: No Referrals: Telma Aparicio DO [Primary Care Provider] - 1-2 days
[2023-09-19] MEDS: ONDANSETRON 4 MG/2 ML VIAL IVP STA (12:14)
[2023-09-19] MEDS: KETOROLAC 15 MG/ML 1 ML VIAL IVP STA (12:14)
[2023-09-19] MEDS: SODIUM CHLORIDE 0.9% 1,000 ML IV STA (12:15)
[2023-09-19 12:31] LABS: Basophils # (A) 0.1 k/uL (0-0.2); Basophils % (A) 1 %; Eosinophils # (A) 0.1 k/uL (0-0.7); Eosinophils % (A) 1 %; HCT 54.7 % (34.0-46.0); HGB 17.3 gm/dL (11.4-16.0); Hypochromasia Moderate; Lymphocytes # (A) 1.9 k/uL (1.0-4.8); Lymphocytes % (A) 30 %; MCH 27.5 pg (25.0-35.0); MCHC 31.6 g/dL (31.0-37.0); Mean Platelet Volume 7.5; Monocytes # (A) 0.3 k/uL (0-1.0); Monocytes % (A) 4 %; Neutrophils # (A) 3.9 k/uL (1.3-7.7); Neutrophils % (A) 62 %; Platelet Count 267 k/uL (150-450); RBC 6.29 m/uL (3.80-5.40); WBC 6.3 k/uL (3.8-10.6)
[2023-09-19 12:39] LABS: Appearance,Urine Cloudy (Clear); Bacteria,Urine Many /hpf; Bilirubin,Urine Negative (Negative); Blood,Urine Negative (Negative); Color,Urine Yellow; Glucose,Urine (UA) Negative (Negative); Ketones,Urine Negative (Negative); Leukocyte Esterase,Urine Negative (Negative); Mucus,Urine Moderate /hpf; Nitrite,Urine Negative (Negative); PH, Urine 7.5 (5.0-8.0); Protein,Urine 1+ (Negative); RBC,Urine 1 /hpf (0-5); Specific Gravity,Urine 1.017 (1.001-1.035); Squamous Epithelial Cell,Urine 9 /hpf (0-4); Urobilinogen,Urine <2.0 mg/dL (<2.0); WBC,Urine 2 /hpf (0-5)
[2023-09-19 12:50] LABS: ALT 47 U/L (4-34); AST 39 U/L (14-36); African American GFR (CKD) >90 (>60 ml/min/1.73 sqM); Albumin 5.1 g/dL (3.5-5.0); Alkaline Phosphatase 102 U/L (38-126); Amylase 83 U/L (30-110); Anion Gap 14 mmol/L; Blood Urea Nitrogen 11 mg/dL (7-17); Calcium 10.6 mg/dL (8.4-10.2); Carbon Dioxide 26 mmol/L (22-30); Chloride 105 mmol/L (98-107); Glucose 90 mg/dL (74-99); Lipase 235 U/L (23-300); Non-African American GFR(CKD) 78 (>60 ml/min/1.73 sqM); Potassium 4.2 mmol/L (3.5-5.1); Sodium 145 mmol/L (137-145); Total Bilirubin 0.7 mg/dL (0.2-1.3); Total Protein 8.9 g/dL (6.3-8.2)
[2023-09-19] MEDS: MORPHINE SULFATE 4 MG/ML SYRINGE IVP STA (13:11)
--- NOTE | 2023-09-19 13:46 | CT ---
EXAMINATION TYPE: CT abdomen pelvis wo con CT DLP: 894.6 mGycm, Automated exposure control for dose reduction was used. DATE OF EXAM: 09/19/2023 12:39 PM COMPARISON: 06/28/2021 CLINICAL INDICATION:Female, 48 years old with history of rt flank pain; right flank pain , hematuria, h/o uterine CA with mets TECHNIQUE: Axial CT abdomen pelvis wo con;Sagittal and coronal reformats were created on a separate workstation. Contrast used: mL of , (none if empty) Oral contrast used: without Oral Contrast (none if empty) FINDINGS: LOWER CHEST: Unremarkable ABDOMEN LIVER: Unremarkable GALLBLADDER AND BILE DUCTS: The gallbladder is surgically absent PANCREAS: Unremarkable. SPLEEN: Unremarkable. ADRENAL GLANDS: Unremarkable. KIDNEYS AND URETERS: There are nonobstructing bilateral renal calculi measuring up to 3 mm bilaterall y. Mild dilation of the right renal collecting system. No evidence for left hydronephrosis. Bilateral probable renal cysts. PELVIS BLADDER: Unremarkable REPRODUCTIVE: The uterus is surgically absent. ABDOMEN & PELVIS STOMACH AND BOWEL: No evidence of bowel obstruction. Gastric diverticulum extends towards the left ad renal gland. The appendix is normal. PERITONEUM/RETROPERITONEUM: No evidence of pneumoperitoneum or free fluid. VASCULATURE: No evidence of aortic aneurysm. MUSCULOSKELETAL: No acute osseous abnormalities LYMPH NODES: No gross evidence for lymphadenopathy. SOFT TISSUE/ABDOMINAL WALL: Unremarkable IMPRESSION: 1. No evidence for obstructive uropathy. Bilateral nonobstructing renal calculi. Mild dilation of th e right collecting system, correlate for recently passed stone. 2. The appendix is normal. No other acute abdominal process.
[2023-09-19] MEDS: HYDROmorphone 0.5 MG/0.5 ML SYRINGE IVP STA (15:00)
[2023-09-19 15:36] VITALS: BP 170/59; PULSE 70; RESP 16; TEMP 98.9
== END 2023-09-19 15:16 | disposition home or self-care (01) ==
LOC: EC 10:46
DX: N20.0 Calculus of kidney (principal); I10 Essential (primary) hypertension; F41.9 Anxiety disorder, unspecified; F12.90 Cannabis use, unspecified, uncomplicated; Z87.891 Personal history of nicotine dependence; Z79.899 Other long term (current) drug therapy; Z88.8 Allergy status to other drugs, medicaments and biological substances
CPT/HCPCS: 36415; 80053; 82150; 83605; 83690; 85025; 81001; 74176; 99284; 96374; 96375 ×3; 96361; J2270; J2405; J1885; J1170

== ENCOUNTER → 2024-05-18 | Outpatient (CLI) | payer BC ==
[2024-05-18 18:34] LABS: BUN/Creat Ratio 28.11 Ratio (12.00-20.00); Blood Urea Nitrogen 25.3 mg/dL (9.0-27.0); Glucose 136 mg/dL (70-110); Magnesium 1.8 mg/dL (1.5-2.4)
[2024-05-18 18:35] LABS: ALT 28 U/L (8-44); AST 18 U/L (13-35); Albumin 4.4 g/dL (3.8-4.9); Albumin/Globulin Ratio 1.47 Ratio (1.60-3.17); Alkaline Phosphatase 116 U/L (41-126); Calcium 10.2 mg/dL (8.7-10.3); Carbon Dioxide 24.7 mmol/L (21.6-31.8); Chloride 102 mmol/L (96-109); Potassium 3.8 mmol/L (3.5-5.5); Sodium 142 mmol/L (135-145); T4, Free (Free Thyroxine) 2.08 ng/dL (0.80-1.80); Total Bilirubin 0.4 mg/dL (0.3-1.2); Total Protein 7.4 g/dL (6.2-8.2)
[2024-05-18 18:51] LABS: Basophils # (A) 0.03 X 10*3/uL (0.00-0.10); Basophils % (A) 0.2 %; Eosinophils # (A) 0.04 X 10*3/uL (0.04-0.35); Eosinophils % (A) 0.2 %; HCT 51.6 % (37.2-46.3); HGB 15.7 g/dL (12.0-15.0); Lymphocytes # (A) 2.73 X 10*3/uL (0.90-5.00); Lymphocytes % (A) 15.4 %; MCH 26.7 pg (27.0-32.0); MCHC 30.4 g/dL (32.0-37.0); MCV 87.8 FL (80.0-97.0); Mean Platelet Volume 9.3 FL (9.5-12.2); Monocytes # (A) 1.23 X 10*3/uL (0.20-1.00); NRBC Per 100 WBC 0 X 10*3/uL (0.00-0.01); Neutrophils # (A) 13.57 X 10*3/uL (1.80-7.70); Neutrophils % (A) 76.7 %; Platelet Count 454 X 10*3/uL (140-440); RBC 5.88 X 10*6/uL (4.10-5.20); RDW 14.7 % (11.5-14.5); WBC 17.68 X 10*3/uL (4.50-10.00)
== END | disposition home or self-care (01) ==
LOC: LABWHC1 13:39
PROVIDERS: ATTEND Obstetrics & Gynecology
DX: C54.1 Malignant neoplasm of endometrium (principal)
CPT/HCPCS: 36415; 80053; 83735; 84439; 84443; 84481; 85025

== ENCOUNTER → 2024-05-25 | Outpatient (CLI) | payer BC ==
[2024-05-25 16:02] LABS: Basophils # (A) 0.04 X 10*3/uL (0.00-0.10); Basophils % (A) 0.4 %; Eosinophils # (A) 0.25 X 10*3/uL (0.04-0.35); Eosinophils % (A) 2.5 %; HCT 44.2 % (37.2-46.3); HGB 13.1 g/dL (12.0-15.0); Lymphocytes # (A) 2.03 X 10*3/uL (0.90-5.00); Lymphocytes % (A) 20.4 %; MCH 26.1 pg (27.0-32.0); MCHC 29.6 g/dL (32.0-37.0); Mean Platelet Volume 8.9 FL (9.5-12.2); Monocytes # (A) 0.72 X 10*3/uL (0.20-1.00); Monocytes % (A) 7.3 %; NRBC Per 100 WBC 0 X 10*3/uL (0.00-0.01); Neutrophils # (A) 6.85 X 10*3/uL (1.80-7.70); Platelet Count 270 X 10*3/uL (140-440); RBC 5.02 X 10*6/uL (4.10-5.20); RDW 15.1 % (11.5-14.5); WBC 9.93 X 10*3/uL (4.50-10.00)
[2024-05-25 16:53] LABS: ALT 33 U/L (8-44); AST 21 U/L (13-35); Albumin 3.6 g/dL (3.8-4.9); Alkaline Phosphatase 111 U/L (41-126); Carbon Dioxide 26.5 mmol/L (21.6-31.8); Chloride 102 mmol/L (96-109); Globulin 2.4 g/dL (1.6-3.3); Glucose 164 mg/dL (70-110); Magnesium 1.6 mg/dL (1.5-2.4); Potassium 3.5 mmol/L (3.5-5.5); Sodium 142 mmol/L (135-145); T4, Free (Free Thyroxine) 1.28 ng/dL (0.80-1.80); Total Bilirubin 0.5 mg/dL (0.3-1.2)
== END | disposition home or self-care (01) ==
LOC: LABWHC1 09:36
PROVIDERS: ATTEND Obstetrics & Gynecology
DX: C54.1 Malignant neoplasm of endometrium (principal)
CPT/HCPCS: 36415; 80053; 83735; 84439; 84443; 84481; 85025

== ENCOUNTER 2024-08-22 14:03 | Emergency (ER) | payer BC ==
[2024-08-22 14:13] VITALS: TEMP 97.6
--- NOTE | 2024-08-22 14:19 | ED ---
General Adult HPI - General Stated complaint: Poss Stroke Time Seen by Provider: 08/22/24 14:07 Source: patient, EMS, RN notes reviewed Mode of arrival: EMS Limitations: language barrier - History of Present Illness Initial comments: Patient is a 48-year-old female presenting to the emergency department with strokelike symptoms. Last known well was prior to going to bed last night. Patient woke this morning unable to talk. Patient also has right-sided weakness. EMS provides history as patient is nonverbal. Patient does have history of metastatic uterine cancer. - Related Data Home Medications Medication Instructions Recorded Confirmed Losartan [Cozaar] 50 mg PO DAILY 12/21/20 06/11/23 DULoxetine HCL [Cymbalta] 30 mg PO BID 06/11/23 06/11/23 Gabapentin [Neurontin] 300 mg PO TID 06/11/23 06/11/23 Ondansetron [Zofran] 4 mg PO Q6H PRN 06/11/23 06/11/23 Pantoprazole [Protonix] 40 mg PO BID 06/11/23 06/11/23 Prochlorperazine [Compazine] 10 mg PO TID PRN 06/11/23 06/11/23 Sennosides [Senokot] 8.6 mg PO DAILY 06/11/23 06/11/23 methocarbamoL [Robaxin-750] 750 - 1,500 mg PO QID 06/11/23 06/11/23 oxyCODONE HCL [oxyCODONE HCL (IR)] 10 mg PO TID PRN 06/11/23 06/11/23 Allergies Allergy/AdvReac Type Severity Reaction Status Date / Time paclitaxel Allergy Unknown Verified 08/22/24 14:12 Review of Systems ROS Statement: Those systems with pertinent positive or pertinent negative responses have been documented in the HPI. ROS Other: All systems not noted in ROS Statement are negative. Limitations: ROS unobtainable due to patients medical condition Neurological: Reports: as per HPI, weakness. Denies: headache Past Medical History Past Medical History: Cancer, Hypertension Additional Past Medical History / Comment(s): Hx of and current kidney stones. Hx Uterine Cancer in 2019. History of Any Multi-Drug Resistant Organisms: None Reported Past Surgical History: Section, Cholecystectomy, Hysterectomy Additional Past Surgical History / Comment(s): Laser removal of kidney stones, stents placed and later removed in bilateral kidneys. Past Anesthesia/Blood Transfusion Reactions: No Reported Reaction Additional Past Anesthesia/Blood Transfusion Reaction / Comment(s): No blood transfusions Past Psychological History: Anxiety Smoking Status: Former smoker Past Alcohol Use History: Occasional Past Drug Use History: Marijuana - Past Family History Mother Family Medical History: No Reported History Father Family Medical History: No Reported History General Exam Limitations: language barrier General appearance: alert, in no apparent distress Head exam: Present: atraumatic Eye exam: Present: normal appearance, PERRL. Absent: EOMI (Unable to move her eyes fully towards the right) Neck exam: Present: normal inspection Respiratory exam: Present: normal lung sounds bilaterally Cardiovascular Exam: Present: regular rate, normal rhythm GI/Abdominal exam: Present: soft. Absent: tenderness Extremities exam: Present: normal inspection Neurological exam: Present: alert Expanded Neurological exam: Present: total aphasia, protecting the airway Cranial nerves: EOM's Intact: Abnormal Right (Unable to fully move towards the right), Facial Sensation: Abnormal Right, Facial Palsy with Forehead Movement: Abnormal Right Sensory exam: Upper Extremity Light Touch: Abnormal Right, Lower Extremity Light Touch: Abnormal Right Motor strength exam: RUE: 4, LUE: 5, RLE: 2/1, LLE: 5 Eye Response: (4) open spontaneously Motor Response: (6) obeys commands Verbal Response: (1) no verbal response Psychiatric exam: Present: other (Nonverbal) Skin exam: Present: normal color Course Vital Signs 08/22/24 14:05 Temperature 97.6 F Pulse Rate 102 H Respiratory 22 Rate Blood Pressure 108/73 O2 Sat by Pulse 94 L Oximetry EKG Findings - EKG Results: EKG: interpreted by ERMD, sinus rhythm, normal axis, normal QRS, normal ST/T Medical Decision Making - Medical Decision Making [address] Lewis who agrees patient is not a tPA patient Was pt. sent in by a medical professional or institution (, PA, BANKRUPTCY PROCESSOR, urgent care, hospital, or prison...) When possible be specific @ -No Did you speak to anyone other than the patient for history (EMS, parent, family, police, friend...)? What history was obtained from this source @ -History provided by EMS as patient is aphasic. arrives later and confirms last known well was after 8 or 9 PM yesterday and patient was reportedl y sleeping all morning. Did you review nursing and triage notes (agree or disagree)? Why? @ -I reviewed and agree with nursing and triage notes Were old charts reviewed (outside hosp., previous admission, EMS record, old EKG, old radiological studies, urgent care reports/EKG's, prison records)? Report findings @ -No old charts were reviewed Differential Diagnosis (chest pain, altered mental status, abdominal pain women, abdominal pain men, vaginal bleeding, weakness, fever, dyspnea, syncope, headache, dizziness, GI bleed, back pain, seizure, CVA, palpatations, mental health, musculoskeletal)? @ -Differential Weakness: Hypoglycemia, shock, sepsis, hyponatremia, anemia, infection, MS, ETOH, adverse medicine reaction, overdose, stroke, this is not meant to be an all-inclusive list. EKG interpreted by me (3pts min.). @ -As above X-rays interpreted by me (1pt min.). @ -Two-view chest x-ray shows port present. CT interpreted by me (1pt min.). @ -CT scan of the brain shows some mild changes left parietal temporal region. CT angio with cutoff at the M1 segment. This was discussed with radiologist U/S interpreted by me (1pt. min.). @ -None done What testing was considered but not performed or refused? (CT, X-rays, U/S, labs)? Why? @ -None What meds were considered but not given or refused? Why? @ -Considered tenecteplase however patient is not a candidate secondary to last known well greater than 4.5 hours. Risks felt to outweigh the benefits Did you discuss the management of the patient with other professionals (professionals i.e. , PA, BANKRUPTCY PROCESSOR, lab, RT, psych nurse, criminal justice social worker, dental internship, teacher, patient transport officer, community case manager)? Give summary @ -Case discussed with radiologist. Case also discussed with Dr. Lewis who will accept transfer to [facility]. Case also discussed with practitioner Aranza at [facility] Was smoking cessation discussed for >3mins.? @ -No Was critical care preformed (if so, how long)? @ -31 minutes critical care Were there social determinants of health that impacted care today? How? (Homelessness, low income, unemployed, alcoholism, drug addiction, transportation, low edu. Level, literacy, decrease access to med. care, intermediate, rehab)? @ -No Was there de-escalation of care discussed even if they declined (Discuss DNR or withdrawal of care, Hospice)? DNR status @ -No What co-morbidities impacted this encounter? (DM, HTN, Smoking, COPD, CAD, Cancer, CVA, ARF, Chemo, Hep., AIDS, mental health diagnosis, sleep apnea, morbid obesity)? @ -History of recurrent uterine cancer confined to the abdomen, currently on o ral chemo Was patient admitted / discharged? Hospital course, mention meds given and route, prescriptions, significant lab abnormalities, going to OR and other pertinent info. @ -Patient presents by EMS aphasic with right-sided deficits, NIH 14. Last known well after 8 or 9 PM. Patient with obstructed M1 segment left MCA. Patient to be transferred to [facility] for thrombectomy. Patient and family are involved in this decision making process and would like to proceed forward with this. They have been updated on results and plan Undiagnosed new problem with uncertain prognosis? @ -No Drug Therapy requiring intensive monitoring for toxicity (Heparin, Nitro, Insulin, Cardizem)? @ -No Were any procedures done? @ -No Diagnosis/symptom? @ -CVA Acute, or Chronic, or Acute on Chronic? @ -Acute Uncomplicated (without systemic symptoms) or Complicated (systemic symptoms)? @ -Default Side effects of treatment? @ -No Exacerbation, Progression, or Severe Exacerbation? @ -No Poses a threat to life or bodily function? How? (Chest pain, USA, MS, pneumonia, PE, COPD, DKA, ARF, appy, cholecystitis, CVA, Diverticulitis, Homicidal, Suicidal, threat to staff... and all critical care pts) @ -Threat to neurological function - Lab Data Result diagrams: 08/22/24 14:15 08/22/24 14:15 Lab Results 08/22/24 08/22/24 08/22/24 Range/Units 14:15 14:15 14:15 WBC 10.9 H (3.8-10.6) k/uL RBC 4.50 (3.80-5.40) m/uL Hgb 11.4 (11.4-16.0) gm/dL Hct 36.4 (34.0-46.0) % MCV 81.0 (80.0-100.0) fL MCH 25.3 (25.0-35.0) pg MCHC 31.2 (31.0-37.0) g/dL RDW 15.6 H (11.5-15.5) % Plt Count 315 (150-450) k/uL MPV 6.9 Neutrophils % 74 % Lymphocytes % 11 % Monocytes % 9 % Eosinophils % 3 % Basophils % 1 % Neutrophils # 8.1 H (1.3-7.7) k/uL Lymphocytes # 1.2 (1.0-4.8) k/uL Monocytes # 0.9 (0-1.0) k/uL Eosinophils # 0.3 (0-0.7) k/uL Basophils # 0.1 (0-0.2) k/uL Hypochromasia Marked PT 14.7 H (10.0-12.5) sec INR 1.4 H (<1.2) APTT 22.1 (22.0-30.0) sec Sodium 135 L (137-145) mmol/L Potassium 4.3 (3.5-5.1) mmol/L Chloride 98 (98-107) mmol/L Carbon Dioxide 30 (22-30) mmol/L Anion Gap 7 mmol/L BUN 18 H (7-17) mg/dL Creatinine 1.00 (0.52-1.04) mg/dL Est GFR (CKD-EPI)AfAm 77 (>60 ml/min/1.73 sqM) Est GFR (CKD-EPI)NonAf 67 (>60 ml/min/1.73 sqM) Glucose 91 (74-99) mg/dL Calcium 9.0 (8.4-10.2) mg/dL Total Bilirubin 0.8 (0.2-1.3) mg/dL AST 52 H (14-36) U/L ALT 17 (4-34) U/L Alkaline Phosphatase 234 H (38-126) U/L Creatine Kinase 26 L (30-135) U/L Total Protein 7.1 (6.3-8.2) g/dL Albumin 3.6 (3.5-5.0) g/dL Critical Care Time Critical Care Time: Yes Disposition Clinical Impression: Cerebrovascular accident (CVA) Disposition: OTHER INSTITUTION NOT DEFINED Condition: Serious Is patient prescribed a controlled substance at d/c from ED?: No Referrals: Telma Aparicio DO [Primary Care Provider] - 1-2 days Time of Disposition: 15:02 - Out of Hospital Transfer - Req. Specs Out of Hospital Transfer - Requested Specifics: Neurological ICU
[2024-08-22 14:43] LABS: INR 1.4 (<1.2); Partial Thromboplastin Time 22.1 sec (22.0-30.0); Prothrombin Time 14.7 sec (10.0-12.5)
[2024-08-22 14:47] LABS: ALT 17 U/L (4-34); AST 52 U/L (14-36); African American GFR (CKD) 77 (>60 ml/min/1.73 sqM); Albumin 3.6 g/dL (3.5-5.0); Alkaline Phosphatase 234 U/L (38-126); Anion Gap 7 mmol/L; Blood Urea Nitrogen 18 mg/dL (7-17); Carbon Dioxide 30 mmol/L (22-30); Chloride 98 mmol/L (98-107); Creatine Kinase 26 U/L (30-135); Glucose 91 mg/dL (74-99); Non-African American GFR(CKD) 67 (>60 ml/min/1.73 sqM); Potassium 4.3 mmol/L (3.5-5.1); Sodium 135 mmol/L (137-145); Total Bilirubin 0.8 mg/dL (0.2-1.3); Total Protein 7.1 g/dL (6.3-8.2)
--- NOTE | 2024-08-22 14:50 | CT ---
EXAMINATION TYPE: CT brain wo con CT DLP: 1888.4 mGycm, Automated exposure control for dose reduction was used. DATE OF EXAM: 08/22/2024 2:40 PM COMPARISON: None. CLINICAL INDICATION:Female, 49 years old with history of Neuro deficit, acute, stroke suspected, RIGH T SIDE DEFICIT LKW 12AM TECHNIQUE: Brain: Multiple axial CT images of the brain were obtained without IV contrast. . Coronal and sagitta l reformats reviewed. FINDINGS: Brain: Extra-axial spaces: No abnormal extra-axial fluid collections. Ventricular system: Within normal limits Cerebral parenchyma: No acute intraparenchymal hemorrhage or mass effect. There is loss of leiva-whit e differentiation with hypoattenuating appearance identified within the left insular region and left parietotemporal region (series 202, image 23). Cerebellum: Unremarkable. Mass effect: No evidence of midline shift. Intracranial vasculature: unremarkable Soft tissues: Normal. Calvarium/osseous structures: No depressed skull fracture. Paranasal sinuses and mastoid air cells: Clear Visualized orbits: Orbital contents are intact. IMPRESSION: Findings concerning for acute/subacute ischemia involving the left parietotemporal region and insular region. No evidence for acute intraparenchymal hemorrhage. Findings called to and discussed with Dr. Juliocesar Ramriez at 2:46 PM on 08/22/2024. [facility], , 08/22/2024 2:47 PM
[2024-08-22 14:53] LABS: Basophils # (A) 0.1 k/uL (0-0.2); Basophils % (A) 1 %; Eosinophils # (A) 0.3 k/uL (0-0.7); Eosinophils % (A) 3 %; HCT 36.4 % (34.0-46.0); HGB 11.4 gm/dL (11.4-16.0); Hypochromasia Marked; Lymphocytes # (A) 1.2 k/uL (1.0-4.8); Lymphocytes % (A) 11 %; MCH 25.3 pg (25.0-35.0); MCHC 31.2 g/dL (31.0-37.0); Mean Platelet Volume 6.9; Monocytes # (A) 0.9 k/uL (0-1.0); Monocytes % (A) 9 %; Neutrophils # (A) 8.1 k/uL (1.3-7.7); Neutrophils % (A) 74 %; Platelet Count 315 k/uL (150-450); RDW 15.6 % (11.5-15.5); WBC 10.9 k/uL (3.8-10.6)
--- NOTE | 2024-08-22 14:56 | CT ---
EXAMINATION TYPE: CT angio head neck CT DLP: 1888.4 mGycm, Automated exposure control for dose reduction was used. DATE OF EXAM: 08/22/2024 2:44 PM COMPARISON: CT brain of the same date. CLINICAL INDICATION:Female, 49 years old with history of Neuro deficit, acute, stroke suspected; [facility], TECHNIQUE: Axially acquired helical CT angiogram of the head and neck was obtained with contrast util izing 75 cc of Isovue-370 administered intravenously. Axial images are supplemented with 3D reconstru ctions which were post-processed at an independent workstation. NASCET criteria used. FINDINGS: CTA HEAD: No evidence of acute intracranial hemorrhage, mass effect, or midline shift. The ventricles, sulci, a nd cisterns are unremarkable. The visualized portions of the internal carotid arteries, right middle cerebral artery, anterior cere bral arteries, and posterior cerebral arteries are patent. There is abrupt cut off of the distal M1 s egment of the left MCA (series 506, image 28). There is arterial enhancing vessels within the left MC A however there is more diminutive in appearance in comparison to the right. The basilar and vertebral arteries are patent. CTA NECK: Right Carotid System: The common carotid artery and external carotid artery are patent. The carotid bifurcation demonstrate s no evidence of hemodynamically significant stenosis. The remaining portions of the internal carotid artery demonstrate normal size without significant narrowing. Left Carotid System: The common carotid artery and external carotid artery are patent. The carotid bifurcation demonstrate s no evidence of hemodynamically significant stenosis. The remaining portions of the internal carotid artery demonstrate normal size without significant narrowing. Vertebral arteries are patent without evidence hemodynamically significant stenosis. There is a bovine aortic arch. The origins of the great vessels are patent. No evidence of hemodynami fadumo significant stenosis. Bilateral pleural effusions with associated atelectasis. Suggested pulmonary edema identified bilater ally. Dilated main pulmonary artery measuring up to 3.2 cm which can be seen with pulmonary hypertens ion. Left anterior chest wall Mediport catheter. IMPRESSION: 1. Occlusion of the distal M1 segment of the left MCA. 2. No evidence of dissection of the cervical internal carotid arteries or vertebral arteries or any e vidence of significant stenosis at the carotid bifurcations. 3. No evidence of intracranial aneurysm. 4. Bilateral pleural effusions with suggested pulmonary edema. Findings called to and discussed with Dr. Juliocesar Ramirez at 2:46 PM on 08/22/2024. [facility], , 08/22/2024 2:54 PM
--- NOTE | 2024-08-22 15:05 | XR ---
EXAMINATION TYPE: XR chest 2V DATE OF EXAM: 08/22/2024 COMPARISON: 03/23/2023 CLINICAL INDICATION: Female, 49 years old with history of altered mental status; , TECHNIQUE: XR chest 2V views of the chest. FINDINGS: Diffuse interstitial pattern with basilar consolidation and small effusion. Mediport catheter seen wi th tip overlying the right atrium. No pneumothorax. Limited inspiration with AC joint arthropathy. IMPRESSION: 1. Bilateral consolidation and small effusion correlate for CHF otherwise consider pneumonia.. [facility], , 08/22/2024 3:03 PM
[2024-08-22] MEDS: SODIUM CHLORIDE 0.9% 1,000 ML IV ONE (15:09)
[2024-08-22] MEDS: ASPIRIN 300 MG SUPP RECTAL STA (15:15)
[2024-08-22 15:34] VITALS: BP 109/68; PULSE 93; RESP 20
== END 2024-08-22 15:40 | disposition other institution (70) ==
LOC: EC 14:03
DX: I63.9 Cerebral infarction, unspecified (principal); I10 Essential (primary) hypertension; Z85.42 Personal history of malignant neoplasm of other parts of uterus; Z87.891 Personal history of nicotine dependence; Z88.8 Allergy status to other drugs, medicaments and biological substances
CPT/HCPCS: 36415; 93005; 80053; 82550; 85025; 85610; 85730; 71046; 70496; 70450; 70498; 99291; Q9967

== ENCOUNTER 2024-10-04 11:31 | Inpatient (IN) | payer BC ==
[2024-10-04 13:08] LABS: Anisocytosis Slight; Basophils % (A) 0 %; Eosinophils # (A) 0.1 k/uL (0-0.7); Eosinophils % (A) 0 %; HCT 35.7 % (34.0-46.0); HGB 10.2 gm/dL (11.4-16.0); Hypochromasia Marked; Lymphocytes # (A) 1.4 k/uL (1.0-4.8); Lymphocytes % (A) 10 %; MCH 21.9 pg (25.0-35.0); MCHC 28.5 g/dL (31.0-37.0); Mean Platelet Volume 7.4; Microcytosis Slight; Monocytes # (A) 1.1 k/uL (0-1.0); Monocytes % (A) 8 %; Neutrophils # (A) 10.5 k/uL (1.3-7.7); Neutrophils % (A) 79 %; Platelet Count 362 k/uL (150-450); RBC 4.64 m/uL (3.80-5.40); RDW 16.5 % (11.5-15.5); WBC 13.3 k/uL (3.8-10.6)
--- NOTE | 2024-10-04 13:13 | XR ---
EXAMINATION TYPE: XR chest 2V DATE OF EXAM: 10/04/2024 12:54 PM COMPARISON: Chest radiographs from 08/22/2024. CLINICAL INDICATION: Female, 49 years old with history of Weakness; TECHNIQUE: XR chest 2V Frontal and lateral views of the chest. FINDINGS: Lungs/Pleura: There is no evidence of pleural effusion, focal consolidation, or pneumothorax. Pulmonary vascularity: Pulmonary vascular congestion. Heart/mediastinum: Cardiomediastinal silhouette is enlarged and stable. Musculoskeletal: No acute osseous pathology. Other findings: None Lines/Tubes: [id number] projecting over the left hemithorax with distal tip at the cavoatrial junction. IMPRESSION: Low lung volumes with a generalized hazy appearance which could represent atelectasis versus pulmonar y edema correlate with serum BNP. [facility], , 10/04/2024 1:11 PM
[2024-10-04 13:26] LABS: ALT 30 U/L (4-34); AST 83 U/L (14-36); African American GFR (CKD) 74 (>60 ml/min/1.73 sqM); Albumin 2.4 g/dL (3.5-5.0); Alkaline Phosphatase 763 U/L (38-126); Anion Gap 8 mmol/L; Blood Urea Nitrogen 15 mg/dL (7-17); Calcium 8.1 mg/dL (8.4-10.2); Carbon Dioxide 27 mmol/L (22-30); Chloride 95 mmol/L (98-107); Glucose 93 mg/dL (74-99); Magnesium 1.7 mg/dL (1.6-2.3); Non-African American GFR(CKD) 64 (>60 ml/min/1.73 sqM); Sodium 130 mmol/L (137-145); Total Bilirubin 0.7 mg/dL (0.2-1.3); Total Protein 6.1 g/dL (6.3-8.2)
--- NOTE | 2024-10-04 13:28 | ED ---
General Adult HPI - General Chief complaint: Weakness Stated complaint: dizziness Time Seen by Provider: 10/04/24 13:00 Source: patient, family, RN notes reviewed, old records reviewed Mode of arrival: wheelchair Limitations: no limitations - History of Present Illness Initial comments: 49-year-old female who presents to the emergency department with a past medical history significant for metastatic uterine cancer. Patient recently had a stroke and has left her aphasic. Patient comes in today because her blood pressure was low at home though she is asymptomatic her doctor wanted to come to the emergency department. Patient denies any headache patient denies any new numbness or weakness. Patient denies any chest pain palpitations difficulty b reathing shortness of breath. Patient has any recent fever chills or cough or patient has abdominal pain patient has any nausea vomiting or diarrhea. Again patient denies any symptoms - Related Data Home Medications Medication Instructions Recorded Confirmed Ondansetron [Zofran] 4 mg PO DAILY 06/11/23 10/04/24 Sennosides [Senokot] 17.2 mg PO BID 06/11/23 10/04/24 oxyCODONE HCL [oxyCODONE HCL (IR)] 10 mg PO Q4-6H 06/11/23 10/04/24 Apixaban [Eliquis] 5 mg PO BID 10/04/24 10/04/24 Atorvastatin [Lipitor] 40 mg PO HS 10/04/24 10/04/24 DULoxetine HCL [Cymbalta] 60 mg PO DAILY 10/04/24 10/04/24 Folic Acid 1 mg PO DAILY 10/04/24 10/04/24 Lactulose [Constulose] 10 gm PO TID 10/04/24 10/04/24 Losartan Potassium [Cozaar] 100 mg PO DAILY 10/04/24 10/04/24 fentaNYL 75MCG/HR PATCH [Duragesic 1 patch TRANSDERM Q72H 10/04/24 10/04/24 75MCG/HR] oxyCODONE HCL [oxyCODONE HCL (IR)] 20 mg PO Q4-6H 10/04/24 10/04/24 Allergies Allergy/AdvReac Type Severity Reaction Status Date / Time paclitaxel Allergy Unknown Verified 10/04/24 15:41 Review of Systems ROS Statement: Those systems with pertinent positive or pertinent negative responses have been documented in the HPI. ROS Other: All systems not noted in ROS Statement are negative. Past Medical History Past Medical History: Cancer, CVA/TIA, Hypertension Additional Past Medical History / Comment(s): Hx of and current kidney stones. Hx Uterine Cancer in 2020. History of Any Multi-Drug Resistant Organisms: None Reported Past Surgical History: Section, Cholecystectomy, Hysterectomy Additional Past Surgical History / Comment(s): Laser removal of kidney stones, stents placed and later removed in bilateral kidneys. Past Anesthesia/Blood Transfusion Reactions: No Reported Reaction Additional Past Anesthesia/Blood Transfusion Reaction / Comment(s): No blood transfusions Past Psychological History: Anxiety Smoking Status: Former smoker Past Alcohol Use History: Occasional Past Drug Use History: Marijuana - Past Family History Mother Family Medical History: No Reported History Father Family Medical History: No Reported History General Exam - General Exam Comments Initial Comments: GENERAL: Patient is well-developed and well-nourished. Patient is nontoxic and well- hydrated and is in no acute distress. ENT: Neck is soft and supple. No significant lymphadenopathy is noted. Oropharynx is clear. Moist mucous membranes. Neck has full range of motion without eliciting any pain. EYES: The sclera were anicteric and conjunctiva were pink and moist. Extraocular movements were intact and pupils were equal round and reactive to light. Eyelids were unremarkable. PULMONARY: Unlabored respirations. Good breath sounds bilaterally. No audible rales rhonchi or wheezing was noted. CARDIOVASCULAR: There is a regular rate and rhythm without any murmurs gallops or rubs. ABDOMEN: Soft and nontender with normal bowel sounds. No palpable organomegaly was noted. There is no palpable pulsatile mass. SKIN: Skin is clear with no lesions or rashes and otherwise unremarkable. NEUROLOGIC: Patient is alert and oriented x3. Cranial nerves II through XII are grossly intact. Motor and sensory are also intact. Patient is unable to speak this is her baseline. Symmetrical smile. MUSCULOSKELETAL: Normal extremities with adequate strength and full range of motion. No lower extremity swelling or edema. No calf tenderness. LYMPHATICS: No significant lymphadenopathy is noted PSYCHIATRIC: Normal psychiatric evaluation. Limitations: no limitations Course Vital Signs 10/04/24 10/04/24 10/04/24 11:34 14:04 16:31 Temperature 98 F Pulse Rate 109 H 110 H 109 H Respiratory 20 18 18 Rate Blood Pressure 94/68 87/62 89/59 O2 Sat by Pulse 98 97 97 Oximetry 10/04/24 18:17 Temperature Pulse Rate 118 H Respiratory 18 Rate Blood Pressure 96/63 O2 Sat by Pulse 95 Oximetry Medical Decision Making - Medical Decision Making EKG is interpreted by myself EKG shows sinus tachycardia at 121 bpm ND 120 QRS 92 QT interval 338 QTc is 410. Patient's EKG shows no ST segment elevation. Patient does have Q waves inferiorly in leads II, III and aVF Was pt. sent in by a medical professional or institution (GERRY Ko, FUEL DISTRIBUTION SYSTEM OPERATOR, urgent care, hospital, or fdc...) When possible be specific @ -No Did you speak to anyone other than the patient for history (EMS, parent, family, police, friend...)? What history was obtained from this source @ -No Did you review nursing and triage notes (agree or disagree)? Why? @ -I reviewed and agree with nursing and triage notes Were old charts reviewed (outside hosp., previous admission, EMS record, old EKG, old radiological studies, urgent care reports/EKG's, fdc records)? Report findings @ -No old charts were reviewed Differential Diagnosis? @ -Sepsis, dehydration, dysrhythmia, pneumonia, this is not an all-inclusive list EKG interpreted by me (3pts min.). @ -As above X-rays interpreted by me (1pt min.). @ -Chest x-ray shows no acute abnormality CT interpreted by me (1pt min.). @ -Patient has no pulmonary embolism but opacifications bilaterally U/S interpreted by me (1pt. min.). @ -None done What testing was considered but not performed or refused? (CT, X-rays, U/S, labs)? Why? @ -None What meds were considered but not given or refused? Why? @ -None Did you discuss the management of the patient with other professionals (professionals i.e. GERRY Ko, FUEL DISTRIBUTION SYSTEM OPERATOR, lab, RT, psych nurse, social worker clinical, antique jewelry repairer, teacher, water resources technical officer, block and case maker)? Give summary @ -I spoke with [facility] they agreed admit the patient admit the patient recommending orders Was smoking cessation discussed for >3mins.? @ -No Was critical care preformed (if so, how long)? @ -No Were there social determinants of health that impacted care today? How? (Homelessness, low income, unemployed, alcoholism, drug addiction, transportation, low edu. Level, literacy, decrease access to med. care, fpc, r ehab)? @ -No Was there de-escalation of care discussed even if they declined (Discuss DNR or withdrawal of care, Hospice)? DNR status @ -No What co-morbidities impacted this encounter? (DM, HTN, Smoking, COPD, CAD, Cancer, CVA, ARF, Chemo, Hep., AIDS, mental health diagnosis, sleep apnea, morbid obesity)? @ -None Was patient admitted / discharged? Hospital course, mention meds given and route, prescriptions, significant lab abnormalities, going to OR and other pertinent info. @ -Patient was started on antibiotics patient was given a little bit of fluid because she was tachycardic and slightly hypotensive. Patient's troponin was mildly elevated it was ordered on advanced triage protocol and it will be repeated but patient has no symptoms at this time and never has had any symptoms. Undiagnosed new problem with uncertain prognosis? @ -No Drug Therapy requiring intensive monitoring for toxicity (Heparin, Nitro, Insulin, Cardizem)? @ -No Were any procedures done? @ -No Diagnosis/symptom? @ -Elevated troponin Acute, or Chronic, or Acute on Chronic? @ -Acute Uncomplicated (without systemic symptoms) or Complicated (systemic symptoms)? @ -Comp Side effects of treatment? @ -No Exacerbation, Progression, or Severe Exacerbation? @ -No Poses a threat to life or bodily function? How? (Chest pain, USA, IA, pneumonia, PE, COPD, DKA, ARF, appy, cholecystitis, CVA, Diverticulitis, Homicidal, Suicidal, threat to staff... and all critical care pts) @ -Yes this can lead to an IA and some endorgan dysfunction Diagnosis/symptom? @ -Pneumonia Acute, or Chronic, or Acute on Chronic? @ -Acute Uncomplicated (without systemic symptoms) or Complicated (systemic symptoms)? @ -Complicated Side effects of treatment? @ -None Exacerbation, Progression, or Severe Exacerbation] @ -No Poses a threat to life or bodily function? @ -This can lead to sepsis and endorgan dysfunction - Lab Data Result diagrams: 10/04/24 12:35 10/04/24 12:35 Lab Results 10/04/24 10/04/24 10/04/24 Range/Units 12:35 12:35 12:35 WBC 13.3 H (3.8-10.6) k/uL RBC 4.64 (3.80-5.40) m/uL Hgb 10.2 L (11.4-16.0) gm/dL Hct 35.7 (34.0-46.0) % MCV 77.0 L (80.0-100.0) fL MCH 21.9 L (25.0-35.0) pg MCHC 28.5 L (31.0-37.0) g/dL RDW 16.5 H (11.5-15.5) % Plt Count 362 (150-450) k/uL MPV 7.4 Neutrophils % 79 % Lymphocytes % 10 % Monocytes % 8 % Eosinophils % 0 % Basophils % 0 % Neutrophils # 10.5 H (1.3-7.7) k/uL Lymphocytes # 1.4 (1.0-4.8) k/uL Monocytes # 1.1 H (0-1.0) k/uL Eosinophils # 0.1 (0-0.7) k/uL Basophils # 0.0 (0-0.2) k/uL Hypochromasia Marked Anisocytosis Slight Microcytosis Slight PT 17.0 H (10.0-12.5) sec INR 1.6 H (<1.2) APTT 37.0 H (22.0-30.0) sec D-Dimer (<0.60) mg/L FEU Sodium 130 L (137-145) mmol/L Potassium 4.0 (3.5-5.1) mmol/L Chloride 95 L (98-107) mmol/L Carbon Dioxide 27 (22-30) mmol/L Anion Gap 8 mmol/L BUN 15 (7-17) mg/dL Creatinine 1.03 (0.52-1.04) mg/dL Est GFR (CKD-EPI)AfAm 74 (>60 ml/min/1.73 sqM) Est GFR (CKD-EPI)NonAf 64 (>60 ml/min/1.73 sqM) Glucose 93 (74-99) mg/dL Plasma Lactic Acid Anthony (0.7-2.0) mmol/L Calcium 8.1 L (8.4-10.2) mg/dL Phosphorus 4.0 (2.5-4.5) mg/dL Magnesium 1.7 (1.6-2.3) mg/dL Total Bilirubin 0.7 (0.2-1.3) mg/dL AST 83 H (14-36) U/L ALT 30 (4-34) U/L Alkaline Phosphatase 763 H (38-126) U/L Troponin I (0.000-0.034) ng/mL NT-Pro-B Natriuret Pep pg/mL Total Protein 6.1 L (6.3-8.2) g/dL Albumin 2.4 L (3.5-5.0) g/dL TSH 4.780 H (0.465-4.680) mIU/L Urine Color Urine Appearance (Clear) Urine pH (5.0-8.0) Ur Specific [place] (1.001-1.035) Urine Protein (Negative) Urine Glucose (UA) (Negative) Urine Ketones (Negative) Urine Blood (Negative) Urine Nitrite (Negative) Urine Bilirubin (Negative) Urine Urobilinogen (<2.0) mg/dL Ur Leukocyte Esterase (Negative) Urine RBC (0-5) /hpf Urine WBC (0-5) /hpf Ur Squamous Epith Cells (0-4) /hpf Urine Bacteria (None) /hpf Urine Mucus (None) /hpf 10/04/24 10/04/24 10/04/24 Range/Units 12:35 12:35 15:10 WBC (3.8-10.6) k/uL RBC (3.80-5.40) m/uL Hgb (11.4-16.0) gm/dL Hct (34.0-46.0) % MCV (80.0-100.0) fL MCH (25.0-35.0) pg MCHC (31.0-37.0) g/dL RDW (11.5-15.5) % Plt Count (150-450) k/uL MPV Neutrophils % % Lymphocytes % % Monocytes % % Eosinophils % % Basophils % % Neutrophils # (1.3-7.7) k/uL Lymphocytes # (1.0-4.8) k/uL Monocytes # (0-1.0) k/uL Eosinophils # (0-0.7) k/uL Basophils # (0-0.2) k/uL Hypochromasia Anisocytosis Microcytosis PT (10.0-12.5) sec INR (<1.2) APTT (22.0-30.0) sec D-Dimer 9.26 H (<0.60) mg/L FEU Sodium (137-145) mmol/L Potassium (3.5-5.1) mmol/L Chloride (98-107) mmol/L Carbon Dioxide (22-30) mmol/L Anion Gap mmol/L BUN (7-17) mg/dL Creatinine (0.52-1.04) mg/dL Est GFR (CKD-EPI)AfAm (>60 ml/min/1.73 sqM) Est GFR (CKD-EPI)NonAf (>60 ml/min/1.73 sqM) Glucose (74-99) mg/dL Plasma Lactic Acid Anthony (0.7-2.0) mmol/L Calcium (8.4-10.2) mg/dL Phosphorus (2.5-4.5) mg/dL Magnesium (1.6-2.3) mg/dL Total Bilirubin (0.2-1.3) mg/dL AST (14-36) U/L ALT (4-34) U/L Alkaline Phosphatase (38-126) U/L Troponin I 0.068 H* (0.000-0.034) ng/mL NT-Pro-B Natriuret Pep 181 pg/mL Total Protein (6.3-8.2) g/dL Albumin (3.5-5.0) g/dL TSH (0.465-4.680) mIU/L Urine Color Urine Appearance (Clear) Urine pH (5.0-8.0) Ur Specific [place] (1.001-1.035) Urine Protein (Negative) Urine Glucose (UA) (Negative) Urine Ketones (Negative) Urine Blood (Negative) Urine Nitrite (Negative) Urine Bilirubin (Negative) Urine Urobilinogen (<2.0) mg/dL Ur Leukocyte Esterase (Negative) Urine RBC (0-5) /hpf Urine WBC (0-5) /hpf Ur Squamous Epith Cells (0-4) /hpf Urine Bacteria (None) /hpf Urine Mucus (None) /hpf 10/04/24 10/04/24 Range/Units 15:17 15:17 WBC (3.8-10.6) k/uL RBC (3.80-5.40) m/uL Hgb (11.4-16.0) gm/dL Hct (34.0-46.0) % MCV (80.0-100.0) fL MCH (25.0-35.0) pg MCHC (31.0-37.0) g/dL RDW (11.5-15.5) % Plt Count (150-450) k/uL MPV Neutrophils % % Lymphocytes % % Monocytes % % Eosinophils % % Basophils % % Neutrophils # (1.3-7.7) k/uL Lymphocytes # (1.0-4.8) k/uL Monocytes # (0-1.0) k/uL Eosinophils # (0-0.7) k/uL Basophils # (0-0.2) k/uL Hypochromasia Anisocytosis Microcytosis PT (10.0-12.5) sec INR (<1.2) APTT (22.0-30.0) sec D-Dimer (<0.60) mg/L FEU Sodium (137-145) mmol/L Potassium (3.5-5.1) mmol/L Chloride (98-107) mmol/L Carbon Dioxide (22-30) mmol/L Anion Gap mmol/L BUN (7-17) mg/dL Creatinine (0.52-1.04) mg/dL Est GFR (CKD-EPI)AfAm (>60 ml/min/1.73 sqM) Est GFR (CKD-EPI)NonAf (>60 ml/min/1.73 sqM) Glucose (74-99) mg/dL Plasma Lactic Acid Anthony 1.7 (0.7-2.0) mmol/L Calcium (8.4-10.2) mg/dL Phosphorus (2.5-4.5) mg/dL Magnesium (1.6-2.3) mg/dL Total Bilirubin (0.2-1.3) mg/dL AST (14-36) U/L ALT (4-34) U/L Alkaline Phosphatase (38-126) U/L Troponin I (0.000-0.034) ng/mL NT-Pro-B Natriuret Pep pg/mL Total Protein (6.3-8.2) g/dL Albumin (3.5-5.0) g/dL TSH (0.465-4.680) mIU/L Urine Color Yellow Urine Appearance Cloudy H (Clear) Urine pH 6.0 (5.0-8.0) Ur Specific [place] 1.016 (1.001-1.035) Urine Protein 1+ H (Negative) Urine Glucose (UA) Negative (Negative) Urine Ketones Trace H (Negative) Urine Blood Negative (Negative) Urine Nitrite Negative (Negative) Urine Bilirubin Negative (Negative) Urine Urobilinogen <2.0 (<2.0) mg/dL Ur Leukocyte Esterase Negative (Negative) Urine RBC <1 (0-5) /hpf Urine WBC 2 (0-5) /hpf Ur Squamous Epith Cells 8 H (0-4) /hpf Urine Bacteria Rare H (None) /hpf Urine Mucus Rare H (None) /hpf Disposition Clinical Impression: Pneumonia, Elevated troponin, Pleural effusion Disposition: ADMITTED IP TO THIS HOSP Referrals: Telma Aparicio DO [Primary Care Provider] - 1-2 days Time of Disposition: 18:39
[2024-10-04 13:35] LABS: INR 1.6 (<1.2)
[2024-10-04 15:39] LABS: Appearance,Urine Cloudy (Clear); Bacteria,Urine Rare /hpf; Bilirubin,Urine Negative (Negative); Blood,Urine Negative (Negative); Color,Urine Yellow; Glucose,Urine (UA) Negative (Negative); Ketones,Urine Trace (Negative); Leukocyte Esterase,Urine Negative (Negative); Mucus,Urine Rare /hpf; Nitrite,Urine Negative (Negative); Protein,Urine 1+ (Negative); RBC,Urine <1 /hpf (0-5); Specific Gravity,Urine 1.016 (1.001-1.035); Squamous Epithelial Cell,Urine 8 /hpf (0-4); Urobilinogen,Urine <2.0 mg/dL (<2.0); WBC,Urine 2 /hpf (0-5)
--- NOTE | 2024-10-04 16:49 | CT ---
EXAMINATION TYPE: CT chest angio for PE DATE OF EXAM: 10/04/2024 COMPARISON: None CLINICAL INDICATION: Female, 49 years old with history of Elevated D-dimer; PHH, Elevated D-dimer., S OB or PAIN TECHNIQUE: Ct angiogram of the chest performed with with IV Contrast, patient injected with 80 ml mL of Isovue 3 70. MIP images are created and reviewed. 3-D postprocessing was performed. CT DLP: 375.[address] CTDI: mGy Automated exposure control for dose reduction was used. FINDINGS: There is a small right effusion and a moderate left effusion. There are bibasilar infiltrates adjacent to the effusions which could represent pneumonia or compress mayco atelectasis secondary to the effusions. There is no pneumothorax. There are no filling defects within the pulmonary arterial circulation to suggest pulmonary emboli. There is no thoracic aortic aneurysm. There is no mediastinal, hilar or axillary adenopathy. Limited scanning through the upper abdomen reveals marked hepatomegaly and heterogeneity of the liver likely indicating diffuse liver metastasis. There is mild to moderate ascites in the upper abdomen. There are no focal osseous lesions. Mediport catheter on the left. IMPRESSION: 1. No evidence of pulmonary embolus. 2. Moderate left effusion and small right effusion. 3. Bibasilar infiltrates consistent with pneumonia or compressive atelectasis. 4. Marked hepatomegaly and heterogeneous liver density consistent with diffuse liver metastasis. 5. Small to moderate ascites in the upper abdomen. Follow-up recommendations for incidental pulmonary nodules are per [employer] or [employer]. [facility], , 10/04/2024 4:47 PM
[2024-10-04] MEDS: SODIUM CHLORIDE 0.9% 1,000 ML IV ONE (18:48)
[2024-10-04] MEDS ORDERED: PNEUMONIA PROTOCOL UTILIZED 1 EACH MISC PO PRN (18:50)
[2024-10-04] MEDS: AZITHROMYCIN 500 MG in SODIUM CHLORIDE 0.9% 250 ML IVPB STA (20:12)
[2024-10-04] MEDS: SODIUM CHLORIDE 0.9% 1,000 ML IV SCH (20:50)
[2024-10-04] MEDS: ATORVASTATIN 40 MG TAB PO SCH (20:56)
[2024-10-04] MEDS: APIXABAN 5 MG TAB PO SCH (20:56)
[2024-10-04] MEDS: SENNOSIDES 8.6 MG TAB PO SCH (20:56)
[2024-10-04] MEDS: LACTULOSE 20 GM/30 ML CUP PO SCH (20:57)
--- NOTE | 2024-10-05 07:18 | XR ---
EXAMINATION TYPE: XR chest 1V portable DATE OF EXAM: 10/05/2024 4:25 AM COMPARISON: Chest radiograph from one day prior. CT CLINICAL INDICATION: Female, 49 years old with history of pneumonia; [facility] TECHNIQUE: XR chest 1V portable Frontal view of the chest. FINDINGS: Lungs/Pleura: No evidence of focal consolidation or pneumothorax. Blunting of the costophrenic angles is present. Pulmonary vascularity: Unremarkable. Heart/mediastinum: Cardiomediastinal silhouette is unremarkable. Musculoskeletal: No acute osseous pathology. Other findings: None Lines/Tubes: [id number] projecting over the left hemithorax with distal tip at the cavoatrial junction. IMPRESSION: 1. No evidence for pneumonia, findings on CT most compatible with atelectasis from pleural effusions . 2. Similar bilateral pleural effusions. [facility], , 10/05/2024 7:15 AM
[2024-10-05] MEDS: LOSARTAN 50 MG TAB PO SCH (08:59)
[2024-10-05] MEDS: AZITHROMYCIN 500 MG TAB PO SCH (08:59)
[2024-10-05] MEDS: FOLIC ACID 1 MG TAB PO SCH (08:59)
[2024-10-05] MEDS: ONDANSETRON ODT 4 MG TAB PO SCH (08:59)
[2024-10-05] MEDS: DULoxetine HCL 60 MG CAPSULE.DR PO SCH (08:59)
[2024-10-05 12:09] LABS: INR 1.7 (<1.2); Prothrombin Time 17.4 sec (10.0-12.5)
--- NOTE | 2024-10-05 12:11 | P.HPIM ---
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 Patient was on losartan at home. Which was discontinued patient blood pressure remains low. Patient had a CT of the chest because of hypoxemia and elevated D-dimer. CT did not show any pulmonary embolus but showed bilateral pleural effusions. There is no pneumonic infiltrate that I can appreciate although patient was started on antibiotics here. Patient had marked hepatomegaly with diffuse liver metastasis and moderate ascites. Patient usually does not wear oxygen at home. Patient's proBNP is only 100. Chest x-ray and CT was reviewed by me I do not believe patient has any pneumonic infiltrate may have groundglass opacities. Patient had a stroke in the past because of which patient can speak much REVIEW OF SYSTEMS: All other systems are negative except those mentioned in the HPI PHYSICAL EXAMINATION: GENERAL: Patient has speech problem and can barely speak because of her stroke in the past HEENT: Pupils are round and equally reacting to light. EOMI. No scleral icterus. No conjunctival pallor. Normocephalic, atraumatic. No pharyngeal erythema. No thyromegaly. CARDIOVASCULAR: S1 and S2 present. No murmurs, rubs, or gallops. PULMONARY: Chest is clear to auscultation, no wheezing or crackles. ABDOMEN: Distended abdomen normoactive bowel sounds. No palpable organomegaly. MUSCULOSKELETAL: No joint swelling or deformity. EXTREMITIES: No cyanosis, clubbing, or pedal edema. NEUROLOGICAL: Gross neurological examination did not reveal any focal deficits. SKIN: No rashes. 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 -Uterine cancer: Will consult oncology -Hypervolemic hyponatremia: Secondary to volume overload patient will be started on Lasix at a lower dose if her blood pressure can tolerate -Elevated liver enzymes secondary to mets to liver Elevated TSH: Patient is not on any thyroid medications will obtain T4 level can be sick euthyroid syndrome -Depression -Leukocytosis reactive no evidence of infection UTI or pneumonia antibiotics will be discontinued will obtain a procalcitonin level -Elevated troponins possibly type II NSTEMI cardiology was consulted Coagulopathy: Secondary to liver dysfunction DVT prophylaxis: Patient is presently already anticoagulated with elevated INR of 1.6 secondary to liver dysfunction Past Medical History Past Medical History: Cancer, CVA/TIA, Hypertension Additional Past Medical History / Comment(s): Hx of and current kidney stones. Hx Uterine Cancer in 2019. History of Any Multi-Drug Resistant Organisms: None Reported Past Surgical History: Section, Cholecystectomy, Hysterectomy Additional Past Surgical History / Comment(s): Laser removal of kidney stones, stents placed and later removed in bilateral kidneys. Past Anesthesia/Blood Transfusion Reactions: No Reported Reaction Additional Past Anesthesia/Blood Transfusion Reaction / Comment(s): No blood t ransfusions Past Psychological History: Anxiety Smoking Status: Former smoker Past Alcohol Use History: Occasional Past Drug Use History: Marijuana - Past Family History Mother Family Medical History: No Reported History Father Family Medical History: No Reported History Medications and Allergies Home Medications Medication Instructions Recorded Confirmed Type Ondansetron [Zofran] 4 mg PO DAILY 06/11/23 10/04/24 History Sennosides [Senokot] 17.2 mg PO BID 06/11/23 10/04/24 History oxyCODONE HCL [oxyCODONE HCL (IR)] 10 mg PO Q4-6H 06/11/23 10/04/24 History Apixaban [Eliquis] 5 mg PO BID 10/04/24 10/04/24 History Atorvastatin [Lipitor] 40 mg PO HS 10/04/24 10/04/24 History DULoxetine HCL [Cymbalta] 60 mg PO DAILY 10/04/24 10/04/24 History Folic Acid 1 mg PO DAILY 10/04/24 10/04/24 History Lactulose [Constulose] 10 gm PO TID 10/04/24 10/04/24 History Losartan Potassium [Cozaar] 100 mg PO DAILY 10/04/24 10/04/24 History fentaNYL 75MCG/HR PATCH [Duragesic 1 patch TRANSDERM Q72H 10/04/24 10/04/24 History 75MCG/HR] oxyCODONE HCL [oxyCODONE HCL (IR)] 20 mg PO Q4-6H 10/04/24 10/04/24 History Allergies Allergy/AdvReac Type Severity Reaction Status Date / Time paclitaxel Allergy Unknown Verified 10/04/24 15:41 Physical Exam Vitals: Vital Signs Temp Pulse Pulse Resp BP BP Pulse Ox 10/05/24 07:23 97.9 F 102 H 18 95/67 100 10/05/24 04:03 102 H 18 95/64 97 10/05/24 01:00 24 95/67 100 10/04/24 23:00 101 H 18 99/63 95 10/04/24 18:17 118 H 18 96/63 95 10/04/24 16:31 109 H 18 89/59 97 10/04/24 14:04 110 H 18 87/62 97 Intake and Output 10/04/24 10/05/24 10/05/24 22:59 06:59 14:59 Other: Voiding Method Bedside Commode Results CBC & Chem 7: 10/04/24 12:35 10/04/24 12:35 Labs: Abnormal Lab Results - Last 24 Hours (Table) 10/04/24 10/04/24 10/04/24 Range/Units 12:35 12:35 12:35 WBC 13.3 H (3.8-10.6) k/uL Hgb 10.2 L (11.4-16.0) gm/dL MCV 77.0 L (80.0-100.0) fL MCH 21.9 L (25.0-35.0) pg MCHC 28.5 L (31.0-37.0) g/dL RDW 16.5 H (11.5-15.5) % Neutrophils # 10.5 H (1.3-7.7) k/uL Monocytes # 1.1 H (0-1.0) k/uL PT 17.0 H (10.0-12.5) sec INR 1.6 H (<1.2) APTT 37.0 H (22.0-30.0) sec D-Dimer (<0.60) mg/L FEU Sodium 130 L (137-145) mmol/L Chloride 95 L (98-107) mmol/L Calcium 8.1 L (8.4-10.2) mg/dL AST 83 H (14-36) U/L Alkaline Phosphatase 763 H (38-126) U/L Troponin I (0.000-0.034) ng/mL Total Protein 6.1 L (6.3-8.2) g/dL Albumin 2.4 L (3.5-5.0) g/dL TSH 4.780 H (0.465-4.680) mIU/L Urine Appearance (Clear) Urine Protein (Negative) Urine Ketones (Negative) Ur Squamous Epith Cells (0-4) /hpf Urine Bacteria (None) /hpf Urine Mucus (None) /hpf 10/04/24 10/04/24 10/04/24 Range/Units 12:35 12:35 15:17 WBC (3.8-10.6) k/uL Hgb (11.4-16.0) gm/dL MCV (80.0-100.0) fL MCH (25.0-35.0) pg MCHC (31.0-37.0) g/dL RDW (11.5-15.5) % Neutrophils # (1.3-7.7) k/uL Monocytes # (0-1.0) k/uL PT (10.0-12.5) sec INR (<1.2) APTT (22.0-30.0) sec D-Dimer 9.26 H (<0.60) mg/L FEU Sodium (137-145) mmol/L Chloride (98-107) mmol/L Calcium (8.4-10.2) mg/dL AST (14-36) U/L Alkaline Phosphatase (38-126) U/L Troponin I 0.068 H* (0.000-0.034) ng/mL Total Protein (6.3-8.2) g/dL Albumin (3.5-5.0) g/dL TSH (0.465-4.680) mIU/L Urine Appearance Cloudy H (Clear) Urine Protein 1+ H (Negative) Urine Ketones Trace H (Negative) Ur Squamous Epith Cells 8 H (0-4) /hpf Urine Bacteria Rare H (None) /hpf Urine Mucus Rare H (None) /hpf 10/05/24 10/05/24 Range/Units 03:18 11:43 WBC (3.8-10.6) k/uL Hgb (11.4-16.0) gm/dL MCV (80.0-100.0) fL MCH (25.0-35.0) pg MCHC (31.0-37.0) g/dL RDW (11.5-15.5) % Neutrophils # (1.3-7.7) k/uL Monocytes # (0-1.0) k/uL PT 17.4 H (10.0-12.5) sec INR 1.7 H (<1.2) APTT (22.0-30.0) sec D-Dimer (<0.60) mg/L FEU Sodium (137-145) mmol/L Chloride (98-107) mmol/L Calcium (8.4-10.2) mg/dL AST (14-36) U/L Alkaline Phosphatase (38-126) U/L Troponin I 0.053 H* (0.000-0.034) ng/mL Total Protein (6.3-8.2) g/dL Albumin (3.5-5.0) g/dL TSH (0.465-4.680) mIU/L Urine Appearance (Clear) Urine Protein (Negative) Urine Ketones (Negative) Ur Squamous Epith Cells (0-4) /hpf Urine Bacteria (None) /hpf Urine Mucus (None) /hpf
[2024-10-05] MEDS: FUROSEMIDE 10 MG/ML 2 ML VIAL IV SCH (13:37)
--- NOTE | 2024-10-05 15:55 | P.CRDCN ---
History of Present Illness Consult date: 10/05/24 Consult reason: hypotension History of present illness: 49-year-old female with a past medical history of hypertension, hyperlipidemia, uterine cancer with mets to the liver, history of CVA, and recurrent kidney stones presents due to hypotension. States she took her blood pressure at home and saw that it was quite low, contacted her PCP who recommended her coming to the emergency room for evaluation. Upon interviewing the patient she reports no symptoms including denying chest pain, shortness of breath, palpitations, headache, vision changes, abdominal pain, nausea, vomiting, diarrhea, constipation, and lower extremity swelling. States she currently follows with an oncologist in [place] for her liver cancer. Denies any family history of cardiac issues. Reports her surgical history includes , lap vini, and hysterectomy. Denies alcohol use or smoking. Vitals are heart rate 107, respiratory rate 18, blood pressure 96/54, and O2 saturation 99% on room air. EKG shows sinus tachycardia with possible inferior MT of indeterminate age in leads II and aVF. Cardiac medications: Lipitor 40 mg, Cozaar 100 mg daily, Eliquis 5 mg twice daily Cardiac imaging: States she has had an echo before, will need to reach out to [facility] facility for records. Labs: WBC 13.3, hemoglobin 10.2, D-dimer 9.26, sodium 130, testing 4, chloride 95, calcium 8.1, alkaline phosphatase 163, troponin 0.053--> 0.034--> 0.068, and TSH 4.78. REVIEW OF SYSTEMS At the time of my exam: CONSTITUTIONAL: Denies fever or chills. CARDIOVASCULAR: no chest pain, no shortness of breath, no orthopnea, PND or palpitations. RESPIRATORY: Denies cough. GASTROINTESTINAL: Denies abdominal pain, diarrhea, constipation, nausea or vomiting. MUSCULOSKELETAL: Denies myalgias. NEUROLOGIC: Denies numbness, tingling or weakness. ENDOCRINE: Denies fatigue, weight change, polydipsia or polyurina. GENITOURINARY: Denies burning, hematuria or urgency with micturation. HEMATOLOGIC: Denies history of anemia or bleeding. PHYSICAL EXAMINATION Vital signs reviewed. CONSTITUTIONAL: No apparent distress. HEENT: Head is normocephalic. Pupils are equal, round. Sclerae anicteric. Mucous membranes of the mouth are moist. No JVD. No carotid bruit. CHEST EXAMINATION: Lungs are clear to auscultation. No chest wall tenderness is noted on palpation or with deep breathing. HEART EXAMINATION: Regular rate and rhythm. S1, S2 heard. ABDOMEN: Soft, nontender. Positive bowel sounds. EXTREMITIES: 2+ peripheral pulses, no lower extremity edema and no calf tenderness. NEUROLOGIC EXAMINATION: Patient is awake, alert and oriented x3. ASSESSMENT Hypotension: Multifactorial Elevated troponin: Less likely ACS, likely secondary to malignancy Sinus tachycardia Hypertension Hyperlipidemia Recurrent kidney stones Uterine cancer with metastasis to the liver PLAN -Hold Cozaar in the setting of hypotension -Discontinue Lasix 20 mg IV twice daily -Echo ordered -No need to treat tachycardia at this time as it is likely a physiological response -Give additional 1 L of fluid -Continue to monitor blood pressure -Thank you for the consultation, we will continue to make recommendations based on the patient's course Past Medical History Past Medical History: Cancer, CVA/TIA, Hypertension Additional Past Medical History / Comment(s): Hx of and current kidney stones. Hx Uterine Cancer in 2019. History of Any Multi-Drug Resistant Organisms: None Reported Past Surgical History: Section, Cholecystectomy, Hysterectomy Additional Past Surgical History / Comment(s): Laser removal of kidney stones, stents placed and later removed in bilateral kidneys. Past Anesthesia/Blood Transfusion Reactions: No Reported Reaction Additional Past Anesthesia/Blood Transfusion Reaction / Comment(s): No blood transfusions Past Psychological History: Anxiety Smoking Status: Former smoker Past Alcohol Use History: Occasional Past Drug Use History: Marijuana - Past Family History Mother Family Medical History: No Reported History Father Family Medical History: No Reported History Medications and Allergies Home Medications Medication Instructions Recorded Confirmed Type Ondansetron [Zofran] 4 mg PO DAILY 06/11/23 10/04/24 History Sennosides [Senokot] 17.2 mg PO BID 06/11/23 10/04/24 History oxyCODONE HCL [oxyCODONE HCL (IR)] 10 mg PO Q4-6H 06/11/23 10/04/24 History Apixaban [Eliquis] 5 mg PO BID 10/04/24 10/04/24 History Atorvastatin [Lipitor] 40 mg PO HS 10/04/24 10/04/24 History DULoxetine HCL [Cymbalta] 60 mg PO DAILY 10/04/24 10/04/24 History Folic Acid 1 mg PO DAILY 10/04/24 10/04/24 History Lactulose [Constulose] 10 gm PO TID 10/04/24 10/04/24 History Losartan Potassium [Cozaar] 100 mg PO DAILY 10/04/24 10/04/24 History fentaNYL 75MCG/HR PATCH [Duragesic 1 patch TRANSDERM Q72H 10/04/24 10/04/24 History 75MCG/HR] oxyCODONE HCL [oxyCODONE HCL (IR)] 20 mg PO Q4-6H 10/04/24 10/04/24 History Allergies Allergy/AdvReac Type Severity Reaction Status Date / Time paclitaxel Allergy Unknown Verified 10/04/24 15:41 Physical Exam Vitals: Vital Signs Temp Pulse Pulse Resp BP BP Pulse Ox 10/05/24 13:34 97.3 F L 107 H 18 96/54 99 10/05/24 07:23 97.9 F 102 H 18 95/67 100 10/05/24 04:03 102 H 18 95/64 97 10/05/24 01:00 24 95/67 100 10/04/24 23:00 101 H 18 99/63 95 10/04/24 18:17 118 H 18 96/63 95 10/04/24 16:31 109 H 18 89/59 97 Intake and Output 10/04/24 10/05/24 10/05/24 22:59 06:59 14:59 Other: Voiding Method Bedside Commode Results 10/04/24 12:35 10/04/24 12:35 Cardiac Enzymes 10/04/24 10/05/24 Range/Units 20:51 03:18 Troponin I 0.034 0.053 H* (0.000-0.034) ng/mL Coagulation 10/05/24 Range/Units 11:43 PT 17.4 H (10.0-12.5) sec Current Medications Generic Name Dose Route Start Last Admin Trade Name Freq PRN Reason Stop Dose Admin Apixaban 5 mg 10/04/24 21:00 10/05/24 08:59 Apixaban 5 Mg Tab PO 5 mg BID LUIS Administration Protocol Atorvastatin Calcium 40 mg 10/04/24 21:00 10/04/24 20:56 Atorvastatin 40 Mg Tab PO 40 mg HS LUIS Administration Azithromycin 500 mg 10/05/24 09:00 10/05/24 08:59 Azithromycin 500 Mg Tab PO 10/06/24 09:01 500 mg DAILY LUIS Administration Protocol Duloxetine HCl 60 mg 10/05/24 09:00 10/05/24 08:59 Duloxetine Hcl 60 Mg Capsule.Dr PO 60 mg DAILY LUIS Administration Fentanyl 1 patch 10/07/24 09:00 Fentanyl 75mcg/Hr Patch TRANSDERM Q72H LUIS Protocol Folic Acid 1 mg 10/05/24 09:00 10/05/24 08:59 Folic Acid 1 Mg Tab PO 1 mg DAILY LUIS Administration Furosemide 20 mg 10/05/24 12:15 10/05/24 13:37 Furosemide 10 Mg/Ml 2 Ml Vial IV 20 mg Q12HR LUIS Administration Ceftriaxone Sodium 2 gm/ 50 mls @ 100 mls/hr 10/05/24 09:00 10/05/24 08:58 Sodium Chloride IVPB 10/08/24 09:29 100 mls/hr Q24HR LUIS Administration Protocol Lactulose 10 gm 10/04/24 22:00 10/05/24 09:00 Lactulose 20 Gm/30 Ml Cup PO Not Given TID LUIS Miscellaneous Information 1 each 10/04/24 18:50 Pneumonia Protocol Utilized 1 Each Misc PO ONCE PRN Per Protocol Ondansetron HCl 4 mg 10/05/24 09:00 10/05/24 08:59 Ondansetron Odt 4 Mg Tab PO 4 mg DAILY LUIS Administration Oxycodone HCl 10 mg 10/04/24 20:30 Oxycodone Hcl 5 Mg Tab PO Q4H PRN Mild to Moderate Pain (1 - 6) Oxycodone HCl 20 mg 10/04/24 20:30 10/04/24 20:56 Oxycodone Hcl 5 Mg Tab PO 20 mg Q4H PRN Administration Severe Pain (Scale 7 to 10) Senna 17.2 mg 10/04/24 21:00 10/05/24 09:00 Sennosides 8.6 Mg Tab PO Not Given BID LUIS Intake and Output 10/04/24 10/05/24 10/05/24 22:59 06:59 14:59 Other: Voiding Method Bedside Commode 10/04/24 12:35 10/04/24 12:35
[2024-10-06 07:44] LABS: Anisocytosis Slight; HGB 9.4 gm/dL (11.4-16.0); Hypochromasia Marked; MCHC 28.5 g/dL (31.0-37.0); MCV 77.2 fL (80.0-100.0); Mean Platelet Volume 6.6; Microcytosis Slight; Platelet Count 362 k/uL (150-450); RBC 4.27 m/uL (3.80-5.40); RDW 16.7 % (11.5-15.5); WBC 12.4 k/uL (3.8-10.6)
[2024-10-06 08:03] LABS: ALT 26 U/L (4-34); African American GFR (CKD) >90 (>60 ml/min/1.73 sqM); Albumin 2.3 g/dL (3.5-5.0); Anion Gap 4 mmol/L; Blood Urea Nitrogen 17 mg/dL (7-17); Calcium 7.8 mg/dL (8.4-10.2); Carbon Dioxide 29 mmol/L (22-30); Chloride 97 mmol/L (98-107); Glucose 81 mg/dL (74-99); Non-African American GFR(CKD) >90 (>60 ml/min/1.73 sqM); Sodium 130 mmol/L (137-145); Total Bilirubin 0.7 mg/dL (0.2-1.3)
[2024-10-06 08:05] LABS: AST 89 U/L (14-36); Alkaline Phosphatase 780 U/L (38-126); Magnesium 1.8 mg/dL (1.6-2.3); Potassium 4.6 mmol/L (3.5-5.1)
[2024-10-06 08:55] VITALS: RESP 16
[2024-10-06 11:36] VITALS: BP 97/66; PULSE 101; TEMP 97.6
--- NOTE | 2024-10-06 13:28 | CA ---
Transthoracic Echo Report Name: Toni George Age: 49 Gender: F : 1975 Exam Date: 10/06/2024 10:35 Exam Location: [place] [facility] Ht (in): 70 Wt (lb): 180 Ordering Physician: Ileana Heller MD Attending/Referring Phys: Senior Energy Analyst Bessie Christy RDCS Procedure CPT: Indications: Hypotension Cardiac Hx: Stroke Technical Quality: Fair Contrast 1: Total Dose (mL): Contrast 2: Total Dose (mL): MEASUREMENTS (Male / Female) Normal Values 2D ECHO LV Diastolic Diameter PLAX 4.0 cm 4.2 - 5.9 / 3.9 - 5.3 cm LV Systolic Diameter PLAX 2.8 cm IVS Diastolic Thickness 1.0 cm 0.6 - 1.0 / 0.6 - 0.9 cm LVPW Diastolic Thickness 1.1 cm 0.6 - 1.0 / 0.6 - 0.9 cm LV Relative Wall Thickness 0.5 RV Internal Dim ED PLAX 3.3 cm LVOT Diameter 2.1 cm Aortic Root Diameter 2.9 cm LA Systolic Diameter LX 3.5 cm 3.0 - 4.0 / 2.7 - 3.8 cm DOPPLER Mitral E Point Velocity 43.3 cm/s Mitral A Point Velocity 52.1 cm/s Mitral E to A Ratio 0.8 MV Deceleration Time 158.3 ms MV E' Velocity 7.1 cm/s Mitral E to MV E' Ratio 6.1 FINDINGS Left Ventricle Left ventricular ejection fraction is estimated at 55-60 %. Normal left ventricular systolic function with no obvious regional wall motion abnormalities. Left ventricular cavity size normal. Right Ventricle Right ventricular dilatation. Global hypokinesis. Unable to estimate the right ventricular systolic pressure. Right Atrium Normal right atrial size. Left Atrium Normal left atrial size. Mitral Valve Structurally normal mitral valve. No mitral stenosis. Trace mitral regurgitation. Aortic Valve Trileaflet aortic valve. No aortic stenosis. No aortic regurgitation. Tricuspid Valve Structurally normal tricuspid valve. No tricuspid stenosis.no tricuspid regurgitation. Pulmonic Valve Structurally normal pulmonic valve. No pulmonic stenosis. No pulmonic regurgitation. Pericardium No pericardial effusion. Aorta Normal size aortic root and proximal ascending aorta. CONCLUSIONS Technically difficult study. 1. Normal left ventricular size and systolic function 2. Dilated right ventricle 3. Limited Doppler study with trace mitral regurgitation Previewed by: Dr. Umberto Cruz MD (Electronically Signed) Final Date: 06 October 2024 13:27
--- NOTE | 2024-10-06 13:33 | P.DS ---
Providers Date of admission: 10/04/24 18:52 Attending physician: Kevin Mendez Consults: 10/04/24 18:50 Consult Physician Routine Consulting Provider: [facility] Consult Reason/Comments: Elevated troponin Do you want consulting provider notified?: Yes 10/05/24 12:14 Consult Physician Routine Consulting Provider: Ruben Ramon Consult Reason/Comments: Uterine cancer Do you want consulting provider notified?: Yes Primary care physician: [facility] Course: 49-year-old female with a history of metastatic uterine cancer mets to liver came in because her blood pressure is low. Patient was on losartan at home. Which was discontinued patient blood pressure remains low. Patient had a CT of the chest because of hypoxemia and elevated D-dimer. CT did not show any pulmonary embolus but showed bilateral pleural effusions. There is no pneumonic infiltrate that I can appreciate although patient was started on antibiotics here. Patient had marked hepatomegaly with diffuse liver metastasis and moderate ascites. Patient usually does not wear oxygen at home. Patient's proBNP is only 100. Chest x-ray and CT was reviewed by me I do not believe patient has any pneumonic infiltrate may have groundglass opacities. Patient had a stroke in the past because of which patient can speak much 10/06/2024 Patient is clinically doing well patient blood pressure is still on the low side losartan is being held patient was eval by cardiology. Patient does use 4 L of oxygen at home. Patient had an echocardiogram which showed normal ejection fraction patient's IV Lasix was discontinued was given IV fluids with improvement in blood pressure patient is not volume overloaded at this time. Patient is clinically doing well will be discharged today. PHYSICAL EXAMINATION: GENERAL: Patient has speech problem and can barely speak because of her stroke in the past HEENT: Pupils are round and equally reacting to light. EOMI. No scleral icterus. No conjunctival pallor. Normocephalic, atraumatic. No pharyngeal erythema. No thyromegaly. CARDIOVASCULAR: S1 and S2 present. No murmurs, rubs, or gallops. PULMONARY: Chest is clear to auscultation, no wheezing or crackles. ABDOMEN: Distended abdomen normoactive bowel sounds. No palpable organomegaly. MUSCULOSKELETAL: No joint swelling or deformity. EXTREMITIES: No cyanosis, clubbing, or pedal edema. NEUROLOGICAL: Gross neurological examination did not reveal any focal deficits. SKIN: No rashes. 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 Plan - Discharge Summary Discharge Rx Participant: No New Discharge Prescriptions: No Action Sennosides [Senokot] 17.2 mg PO BID Ondansetron [Zofran] 4 mg PO DAILY Atorvastatin [Lipitor] 40 mg PO HS Apixaban [Eliquis] 5 mg PO BID DULoxetine HCL [Cymbalta] 60 mg PO DAILY oxyCODONE HCL [oxyCODONE HCL (IR)] 10 mg PO Q4-6H Losartan Potassium [Cozaar] 100 mg PO DAILY Folic Acid 1 mg PO DAILY fentaNYL 75MCG/HR PATCH [Duragesic 75MCG/HR] 1 patch TRANSDERM Q72H oxyCODONE HCL [oxyCODONE HCL (IR)] 20 mg PO Q4-6H Lactulose [Constulose] 10 gm PO TID Discharge Medication List Ondansetron [Zofran] 4 mg PO DAILY 06/11/23 [History] Sennosides [Senokot] 17.2 mg PO BID 06/11/23 [History] oxyCODONE HCL [oxyCODONE HCL (IR)] 10 mg PO Q4-6H 06/11/23 [History] Apixaban [Eliquis] 5 mg PO BID 10/04/24 [History] Atorvastatin [Lipitor] 40 mg PO HS 10/04/24 [History] DULoxetine HCL [Cymbalta] 60 mg PO DAILY 10/04/24 [History] Folic Acid 1 mg PO DAILY 10/04/24 [History] Lactulose [Constulose] 10 gm PO TID 10/04/24 [History] Losartan Potassium [Cozaar] 100 mg PO DAILY 10/04/24 [History] fentaNYL 75MCG/HR PATCH [Duragesic 75MCG/HR] 1 patch TRANSDERM Q72H 10/04/24 [History] oxyCODONE HCL [oxyCODONE HCL (IR)] 20 mg PO Q4-6H 10/04/24 [History] Follow up Appointment(s)/Referral(s): Telma Aparicio DO [Primary Care Provider] - 1-2 days
[2024-10-06 20:23] LABS: % Iron Saturation 6.62 (12.00-45.00)
== END 2024-10-06 15:14 | disposition home health service (06) | DRG 280 ==
LOC: EC 11:31 → OBSVTOIN 18:52 → 3SCARD 18:52
PROVIDERS: ADMIT Hospitalist; ATTEND Hospitalist
DX: I95.2 Hypotension due to drugs (principal); J96.21 Acute and chronic respiratory failure with hypoxia; I21.A1 Myocardial infarction type 2; C78.7 Secondary malignant neoplasm of liver and intrahepatic bile duct; E22.2 Syndrome of inappropriate secretion of antidiuretic hormone; D68.4 Acquired coagulation factor deficiency; R18.8 Other ascites; R16.0 Hepatomegaly, not elsewhere classified; J90 Pleural effusion, not elsewhere classified; I69.320 Aphasia following cerebral infarction; F32.A Depression, unspecified; I10 Essential (primary) hypertension; D72.828 Other elevated white blood cell count; E78.5 Hyperlipidemia, unspecified; N20.0 Calculus of kidney; T46.5X5A Adverse effect of other antihypertensive drugs, initial encounter; E87.70 Fluid overload, unspecified; R94.6 Abnormal results of thyroid function studies; Z99.81 Dependence on supplemental oxygen; Z79.01 Long term (current) use of anticoagulants; Z79.899 Other long term (current) drug therapy; Z79.891 Long term (current) use of opiate analgesic; Z87.891 Personal history of nicotine dependence; Z90.710 Acquired absence of both cervix and uterus; Z87.442 Personal history of urinary calculi; Z85.42 Personal history of malignant neoplasm of other parts of uterus
CPT/HCPCS: 36415; 71045; 71046; 71275; 80053; 81001; 82607; 82728; 82747; 83540; 83550; 83605; 83735; 83880; 83921; 84100; 84145; 84439; 84443; 84484; 85025; 85027; 85379; 85610; 85730; 87040; 87449; 93005; 93306; 94760; 96365; 96366; 96368; 96375; 99285